=== PATIENT | male | born 1960 | race Caucasian/White ===

== ENCOUNTER 2024-11-20 10:01 | Emergency (ER) | payer MEDICAID, SELFPAY ==
--- NOTE | ~2024-11-20 | XR_ITS ---
EXAMINATION: XR CHEST CLINICAL INFORMATION: CHEST PAIN COMPARISON: None available. TECHNIQUE: 2 views of the chest were obtained. FINDINGS: There is moderate cardiac enlargement. Mediastinal contours are normal. Aortic mural calcification. Vascular congestion in the hilar regions. Lungs demonstrate mild interstitial pulmonary edema with subtle Kemar B lines in the lung bases and haziness of the interstitium. There is no pneumothorax or pleural effusion. 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 Mild degenerative spinal changes. XR/XR chest 2V IMPRESSION: 1. Cardiomegaly with mild interstitial pulmonary edema. No effusions. Electronically signed by: Alexx Curry MD 11/20/2024 01:14 PM EST
--- NOTE | 2024-11-20 10:03 | ECG_ITS ---
Test Reason : chest pain Blood Pressure : */* mmHG Vent. Rate : 65 BPM Atrial Rate : * BPM P-R Int : * ms QRS Dur : 80 ms QT Int : 416 ms P-R-T Axes : * -3 39 degrees QTcB Int : 432 ms Atrial fibrillation Low voltage QRS Cannot rule out Anteroseptal infarct , age undetermined Abnormal ECG No previous ECGs available Referred By: Generic ED Physician Electronically Signed By: JEFFREY LOMELI
[2024-11-20 10:19] VITALS: BP 156/58; PULSE 67; RESP 18; TEMP 36.6; O2SAT 99; BMI 29.5
[2024-11-20 10:38] LABS: MANUAL DIFF FLAG NO
[2024-11-20 10:40] LABS: Basophils Percent Auto 0.4 % (0-2); Eosinophils Absolute Auto 0.5 X10*3/uL (0.0-0.4); Eosinophils Percent Auto 6.9 % (0-4); Hemoglobin 14.2 g/dl (14.0-18.0); Imm Gran Abs Auto 0.02 X10*3/uL (0.00-0.03); Imm Gran Pct Auto 0.3 % (0.0-0.4); Lymphocytes Absolute Auto 2.2 X10*3/uL (1.2-4.9); Mean Corpuscular HGB Conc 33.8 g/dl (31.0-36.0); Mean Corpuscular Hemoglobin 29.6 pg (27.0-33.0); Mean Corpuscular Volume 87.7 fL (80.0-98.0); Mean Platelet Volume 12.2 fL (9.4-12.4); Monocytes Absolute Auto 0.6 X10*3/uL (0.1-1.2); Monocytes Percent Auto 8.5 % (2-11); Neutrophils Absolute Auto 3.8 x10*3/uL (2.0-8.3); Neutrophils Percent Auto 52.9 % (45-73); Platelet Count 137 X10*3/uL (160-400); Red Blood Count 4.79 X10*6/uL (4.60-5.80); Red Cell Distribution Width 14.1 % (11.0-16.0); White Blood Count 7.2 X10*3/uL (4.8-10.8)
[2024-11-20 10:55] LABS: Alanine Aminotransferase 46 U/L (0-40); Albumin Level 4.1 g/dL (3.5-5.0); Alkaline Phosphatase 231 U/L (39-117); Anion Gap 13 (12-20); Aspartate Amino Transferase 33 U/L (5-37); Bilirubin Total 0.9 mg/dL (0.0-1.0); Blood Urea Nitrogen 17 mg/dL (9-16); Calcium 10.1 mg/dL (8.4-10.2); Carbon Dioxide 29 mmol/L (22-29); Chloride 102 mmol/L (96-108); Creatinine Clr Calc Pharmacy 78.3; Estimated Glomerular Filt Rate > 60; Glucose Random 176 mg/dL (60-115); Potassium 3.8 mmol/L (3.3-5.1); Sodium 140 mmol/L (135-145); Total Protein 9.8 g/dL (6.5-8.0)
[2024-11-20 11:06] LABS: Troponin-I High Sensitivity < 2.7 ng/L (<3.5-35.0)
[2024-11-20 14:10] LABS: B Type Natriuretic Peptide 133 pg/mL (<100)
[2024-11-20 15:25] VITALS: BP 132/62; PULSE 61; RESP 18; TEMP 36.4; O2SAT 100
[2024-11-20 17:17] LABS: Troponin-I High Sensitivity < 2.7 ng/L (<3.5-35.0)
--- NOTE | 2024-11-20 17:24 | ED_ITS ---
HPI - Chest Pain General Chief Complaint: Chest Pain Stated Complaint: Chest Pain, Lost Vision Time Seen by Provider: 11/20/24 16:22 Source: patient and family Mode of arrival: ambulatory Limitations: no limitations History of Present Illness ED Provider: Dr. Kindra Diaz HPI narrative: Patient comes to the emergency room complaining of couple of 2 to 3 months of chest pain. Patient had recently gotten echocardiogram done in [place]. Patient was diagnosed with CHF. Patient seems to have AFib for several years. 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 Patient does not know much about his medical history, pink came to live now to the [facility] and is staying with a family member. At this time, patient states that he has the same chest discomfort that is been constant and unchanged for 3 months. Patient brought medications from [place] but is running out of. Patient does not have a PCP, does not have a telecommunications field technician or oxyacetylene torch operator. Patient denies shortness of breath. Related Data Previous Rx's ?Medication ?Instructions ?Recorded apixaban 5 mg tablet (Eliquis) 5 mg PO BID #60 tabs 11/20/24 atorvastatin 40 mg tablet 40 mg PO BEDTIME #30 tabs 11/20/24 ferrous sulfate 325 mg (65 mg 325 mg PO BID #60 tabs 11/20/24 iron) tablet folic acid 1 mg tablet 1 mg PO DAILY #30 tabs 11/20/24 hydrochlorothiazide 25 mg tablet 25 mg PO DAILY #30 tabs 11/20/24 metoprolol succinate 25 mg 25 mg PO DAILY #30 tabs 11/20/24 tablet,extended release 24 hr Allergies Allergy/AdvReac Type Severity Reaction Status Date / Time No Known Allergies Allergy Verified 11/20/24 10:23 Review of Systems 2 Review of Systems: Constitutional : No Weight loss, No Fever, No Chills, No Night Sweats, No Fatigue, No Malaise ENT/Mouth : No Hearing loss, No Ear Pain, No Nasal Congestion, No Sinus Pain, No Hoarseness, No sore throat, No Rhinorrhea, No Swallowing Difficulty Eyes: No Eye Pain, No Swelling, No Redness, No Foreign Body, No Discharge, No Vision Changes Cardiovascular : Complaining of chronic and unchanged chest pain for 3 months, No SOB, No Dyspnea on Exertion, denies orthopnea, denies palpitations Respiratory : No Cough, No Sputum, No Wheezing, No Smoke Exposure, No Dyspnea Gastrointestinal : No Nausea, No Vomiting, No Diarrhea, No Constipation, No abdominal Pain, No Hematochezia, No Melena Genitourinary : no irregular bleeding, No Dysuria, No Urinary Frequency, No Hematuria, No Urinary Incontinence, No Urgency, No Flank Pain, No Urinary Flow Changes, No Hesitancy Musculoskeletal : No joint pain, No Myalgias, No Joint Swelling Skin : No Skin Lesions, No rash Neuro : No Weakness, No Numbness, No Paresthesias, No Loss of Consciousness, No Dizziness, No Headache Psych : No Anxiety/Panic, No Depression, No SI/HI/AH/VH, No Social Issues, Heme/Lymph: No Bruising, No Bleeding,No Lymphadenopathy Endocrine : No Polyuria, No Polydipsia, No Temperature Intolerance [facility] Past Medical History Medical History (Updated 11/20/24 @ 17:56 by Kindra Diaz MD) Coronary artery disease Atrial fibrillation CHF (congestive heart failure) Social History Social History Alcohol intake: former Smoked in Last 30 Days: No Use of substances other than those prescribed or required for medical reasons: No Advance Directives: No Advance Directives Information Provided: No Physical Exam 2 Vital Signs: Vital Signs: Last Vital Signs Temp 97.5 F 11/20/24 15:25 Pulse 61 11/20/24 15:25 Resp 18 11/20/24 15:25 BP 132/62 11/20/24 15:25 Pulse Ox 100 11/20/24 15:25 O2 Del Method Room Air 11/20/24 15:25 BMI result Body Mass Index 29.5 Const: Other: Appearance: Alert. Oriented X3. No acute distress. Eyes: Pupils equal, round and reactive to light. ENT: Pharynx normal. Neck: Normal inspection. Neck supple. No lymph nodes noted. No crepitus CVS: Normal heart rate and rhythm. Pulses normal. Normal S1 and S2 Respiratory: No respiratory distress. Breath sounds normal. No Wheezing. No rales Abdomen: Soft and nontender. No rigidity. No distention. Skin: Skin warm and dry. Normal skin color. Normal skin turgor. Extremities: No lower extremity edema. No Lacerations. No Rash Neuro: Oriented X 3. No motor deficit. No sensory deficit. Moving all extremities. No slurred speech. CN 2 through 12 grossly intact Psych: calm, cooperative, normal affect My interpretation of EKG: Atrial fibrillation, rate control, heart rate 65, no ST segment depression or elevation, no T-wave inversion, QTC 432 My interpretation of labs: No significant abnormality in patient's chemistry, BNP slightly elevated 133, troponin x2 negative. At this time, patient is hemodynamically stable, no CHF exacerbation, AFib rate control. Patient will be given information about acquiring a new PCP, also we will provide the family with the phone number for Cardiology an ophthalmology. I will provide refills with the patient's medication from [place] Patient Is stable to be discharged. Medical Decision Making Medical Decision Making MDM Narrative: Patient brought letter from his telecommunications field technician with updated list of medications. Patient is running out of meds, I will refill them until he is seen by his new telecommunications field technician Lab Data [facility] Lab Attestation statement: I reviewed the patient's lab results. 11/20/24 10:33 11/20/24 10:33 Labs: Lab Results 11/20/24 11/20/24 Range/Units 10:33 16:51 WBC 7.2 (4.8-10.8) X10*3/uL RBC 4.79 (4.60-5.80) X10*6/uL Hgb 14.2 (14.0-18.0) g/dl Hct 42.0 (42.0-52.0) % MCV 87.7 (80.0-98.0) fL MCH 29.6 (27.0-33.0) pg MCHC 33.8 (31.0-36.0) g/dl RDW 14.1 (11.0-16.0) % Plt Count 137 L (160-400) X10*3/uL MPV 12.2 (9.4-12.4) fL Immature Gran % (Auto) 0.3 (0.0-0.4) % Neut % (Auto) 52.9 (45-73) % Lymph % (Auto) 31.0 (20-40) % [place] % (Auto) 8.5 (2-11) % Eos % (Auto) 6.9 H (0-4) % Baso % (Auto) 0.4 (0-2) % Lymph # (Auto) 2.2 (1.2-4.9) X10*3/uL [place] # (Auto) 0.6 (0.1-1.2) X10*3/uL Eos # (Auto) 0.5 H (0.0-0.4) X10*3/uL Baso # (Auto) 0.0 (0.0-0.2) X10*3/uL Abs Immat Gran (auto) 0.02 (0.00-0.03) X10*3/uL Absolute Neuts (auto) 3.8 (2.0-8.3) x10*3/uL Absolute Nucleated RBC 0.000 (0.0-0.012) X10*3/uL Nucleated RBC % (auto) 0.0 (0.0-0.2) /100WBC Sodium 140 (135-145) mmol/L Potassium 3.8 (3.3-5.1) mmol/L Chloride 102 (96-108) mmol/L Carbon Dioxide 29 (22-29) mmol/L Anion Gap 13 (12-20) BUN 17 H (9-16) mg/dL Creatinine 0.95 (0.5-1.4) mg/dL Estim Creat Clear Calc 78.3 Estimated GFR > 60 Random Glucose 176 H (60-115) mg/dL Calcium 10.1 (8.4-10.2) mg/dL Total Bilirubin 0.9 (0.0-1.0) mg/dL AST 33 (5-37) U/L ALT 46 H (0-40) U/L Alkaline Phosphatase 231 H (39-117) U/L Troponin I High Sens < 2.7 < 2.7 (<3.5-35.0) ng/L B-Natriuretic Peptide 133 H (<100) pg/mL Total Protein 9.8 H (6.5-8.0) g/dL Albumin 4.1 (3.5-5.0) g/dL Independent Interpretation I performed an independent interpretation of an: EKG and Plain X-Ray Radiology Impression Discussion of test interpretation with radiology: I have reviewed the radiologist's reading. Radiologist Impression: There is moderate cardiac enlargement. Mediastinal contours are normal. Aortic mural calcification. Vascular congestion in the hilar regions. Lungs demonstrate mild interstitial pulmonary edema with subtle Kemar B lines in the lung bases and haziness of the interstitium. There is no pneumothorax or pleural effusion. 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 Mild degenerative spinal changes. XR/XR chest 2V IMPRESSION: 1. Cardiomegaly with mild interstitial pulmonary edema. No effusions. Independent Historian Clinical information obtained from an independent historian. History obtained from or confirmed by: Other (Patient's niece) Critical Care Time Critical Care Time Critical Care Time: Yes Total Critical Care Time: 35 Attestation: I have personally provided critical care time. Time includes review of lab data, radiology results, discussion with consultants, and monitoring for potential decompensation. Intervention performed as documented. Discharge Plan Discharge Clinical Impression: Chronic CHF, Chronic atrial fibrillation, Chronic chest pain, Cataract Patient Disposition: Home, Self-Care Instructions: Heart Failure (ED), A-fib (Atrial Fibrillation) (ED), Chest Pain (ED), Cataracts (ED) Additional Instructions: Please follow-up with your primary care physician tomorrow. If you have any worsening or new symptoms, please return to the emergency room or call 911 Prescriptions: New Eliquis 5 mg tablet 5 mg PO BID Qty: 60 2RF atorvastatin 40 mg tablet 40 mg PO BEDTIME Qty: 30 2RF metoprolol succinate 25 mg tablet extended release 24 hr 25 mg PO DAILY Qty: 30 2RF hydrochlorothiazide 25 mg tablet 25 mg PO DAILY Qty: 30 2RF ferrous sulfate 325 mg (65 mg iron) tablet 325 mg PO BID Qty: 60 2RF folic acid 1 mg tablet 1 mg PO DAILY Qty: 30 2RF Referrals: Regulo Sandy MD [Physician] - 11/26/24 Suresh Goodwin [Physician] - 11/26/24 Print Language: Korean
== END 2024-11-20 19:03 | disposition home or self-care (01) ==
PROVIDERS: Physician Assistant Medical; Emergency Provider Emergency Medicine
DX: I50.9 Heart failure, unspecified (principal); I48.91 Unspecified atrial fibrillation; R07.9 Chest pain, unspecified; H26.9 Unspecified cataract; I51.7 Cardiomegaly; Z79.01 Long term (current) use of anticoagulants
CPT/HCPCS: 36415; 71046; 80053; 83880; 84484; 85025; 93005; 99283; 99284

== ENCOUNTER → 2024-11-20 10:03 | Outpatient (BNV) | payer MEDICAID, SELFPAY | PROVIDERS: Emergency Provider Emergency Medicine; Visit Provider Internal Medicine | DX: R07.9 Chest pain, unspecified (principal); I48.91 Unspecified atrial fibrillation; R94.31 Abnormal electrocardiogram [ECG] [EKG] | CPT/HCPCS: 93010 ==

== ENCOUNTER → 2024-11-20 10:53 | Outpatient (BNV) | payer MEDICAID, SELFPAY | PROVIDERS: Visit Provider Radiology Diagnostic Radiology | DX: I51.7 Cardiomegaly (principal) | CPT/HCPCS: 71046 ==

== ENCOUNTER 2025-01-31 14:19 | Outpatient (REF) | payer MEDICAID, SELFPAY ==
[2025-01-31 16:04] LABS: MANUAL DIFF FLAG NO
[2025-01-31 16:18] LABS: Basophils Percent Auto 0.5 % (0-2); Eosinophils Absolute Auto 0.3 X10*3/uL (0.0-0.4); Eosinophils Percent Auto 3.9 % (0-4); Hematocrit 32.8 % (42.0-52.0); Hemoglobin 11.1 g/dl (14.0-18.0); Imm Gran Abs Auto 0.02 X10*3/uL (0.00-0.03); Imm Gran Pct Auto 0.2 % (0.0-0.4); Lymphocytes Absolute Auto 3.1 X10*3/uL (1.2-4.9); Lymphocytes Percent Auto 34.9 % (20-40); Mean Corpuscular HGB Conc 33.8 g/dl (31.0-36.0); Mean Corpuscular Hemoglobin 28.8 pg (27.0-33.0); Mean Platelet Volume 12.9 fL (9.4-12.4); Monocytes Absolute Auto 0.9 X10*3/uL (0.1-1.2); Monocytes Percent Auto 10.4 % (2-11); Neutrophils Absolute Auto 4.4 x10*3/uL (2.0-8.3); Neutrophils Percent Auto 50.1 % (45-73); Platelet Count 191 X10*3/uL (160-400); Red Blood Count 3.86 X10*6/uL (4.60-5.80); Red Cell Distribution Width 13.5 % (11.0-16.0); White Blood Count 8.7 X10*3/uL (4.8-10.8)
[2025-01-31 16:27] LABS: Estimated Average Glucose 203 mg/dL; Hemoglobin A1C 207.0246 umol/L; Hemoglobin A1c % 8.7 % (<6.0); Total Hemoglobin (HGBA1C) 2912.6373 umol/L
--- OUTSIDE RECORDS SUMMARY | 2025-01-31 16:27 | XMS_ITS | Encounter Summary ---
Author Organization [employer] Address [address] [place] [address] Care Team Providers Care Multifocal Lens Inspector Name Role Phone Unavailable Primary Care Provider Unavailabl e Encounter Details Date Type Department Care Team (Latest Contact Info) Description 01/31/2025 Travel Social History Tobacco Use Types Packs/Day Years Used Date Smoking Tobacco: Never Sex and Gender Information Value Date Recorded Sex Assigned at Male 01/31/2025 1:00 PM EDT Legal Sex Male 12:09 PM EST Gender Identity Male 01/31/2025 1:00 PM EDT Sexual Orientation Straight 01/31/2025 1: 00 PM EDT documented as of this encounter Plan of Treatment Upcoming Encounters Date Type Department Care Team (Late st Contact Info) Description 02/06/2025 3:30 PM EDT Clinical Support [facility] [address] [place] [id number] 03/07/2025 10:30 AM EDT Office Visit [facility] [address] [place] [phone] Francisco Khoury MD [address] [place] [address] documented as of this encounter Visit Diagnoses Not on filedocumented in this encounter
--- OUTSIDE RECORDS SUMMARY | 2025-01-31 16:27 | XMS_ITS | Encounter Summary ---
Author Organization [employer] Address [address] [place] [address] Care Team Providers Care Biomedical Equipment Specialist Name Role Phone Unavailable Primary Care Provider Unavailabl e Reason for Visit * Reason Comments Mediaction Request Abdominal Pain Encounter Details Date Type Department Care Team (Late Contact Info) Description 01/31/2025 2:20 PM EDT Office Visit [facility] [address] [place] [address] [phone] Atrial fibrillation, chronic (CMS/HCC) (Primary Dx); Essential hypertension Social History Tobacco Use Types Packs/Day Years Used Date Smoking Tobacco: Never Tobacco Cessation:Counseling Given: Not Answered Sex and Gender Information Value Date Recorded Sex Assigned at Male 01/31/2025 1:00 PM EDT Legal Sex Male 12:09 PM EST Gender Identity Male 01/31/2025 1:00 PM EDT Sexual Orientation Straight 01/31/2025 1: 00 PM EDT documented as of this encounter Last Filed Vital Signs Vital Sign Reading Time Taken Comments Blood Pressure 149/82 01/31/2025 1:32 PM EDT Pulse 90 01/31/2025 1:32 PM EDT Temperature 36.8 ??C (98.2 ??F) 01/31/2025 1:32 PM ED T Respiratory Rate 17 01/31/2025 1:32 PM EDT Oxygen Saturation 97% 01/31/2025 1:32 PM EDT Inhaled Oxygen Concentration - - Weight 88.4 kg (194 lb 12.8 oz) 01/31/2025 1:32 PM EDT Height - - Body Mass Index - - documented in this encounter Plan of Treatment Upcoming Encounters Date Type Department Care Team (Late Contact Info) Description 02/06/2025 3:30 PM EDT Clinical Support [facility] [address] [place] [phone] 03/07/2025 10:30 AM EDT Office Visit [facility] [address] [facility] [place] [phone] Francisco Khoury MD [address] [facility] [place] [address] Scheduled Orders Name Type Priority Associated Diagnoses Orde r Schedule T4, Free Lab Routine Atrial fibrillation, chronic (CMS/HCC) Essential hypertension Expected: 01/31/2025 (Approximate), Expires: 01/31/2026 Vitamin D, 25-Hydroxy, Total, Immunoassay Lab Routine Atrial fibrillation, chronic (CMS/HCC) Essential hypertension Expected: 01/31/2025 (Approximate), Expires: 01/31/2026 Lipid Panel, Standard Lab Routine Atrial fibrillation, chronic (CMS/HCC) Essential hypertension Expected: 01/31/2025 (Approximate), Expires: 01/31/2026 TSH Lab Routine Atrial fibrillation, chronic (CMS/HCC) Essential hypertension Expected: 01/31/2025 (Approximate), Expires: 01/31/2026 Hepatic Function Panel Lab Routine Atrial fibrillation, chronic (CMS/HCC) Essential hypertension Expected: 01/31/2025 (Approximate), Expires: 01/31/2026 Hemoglobin A1c Lab Routine Atrial fibrillation, chronic (CMS/HCC) Essential hypertension Expected: 01/31/2025 (Approximate), Expires: 01/31/2026 Basic Metabolic Panel Lab Routine Atrial fibrillation, chronic (CMS/HCC) Essential hypertension Expected: 01/31/2025 (Approximate), Expires: 01/31/2026 Albumin, Random Urine W/Creatinine Lab Routine Atrial fibrillation, chronic (CMS/HCC) Essential hypertension Expected: 01/31/2025 (Approximate), Expires: 01/31/2026 Hepatitis B surface antigen, EIA Lab Routine Atrial fibrillation, chronic (CMS/HCC) Essential hypertension Expected: 01/31/2025 (Approximate), Expires: 01/31/2026 Chlamydia/N. Gonorrhoeae RNA, TMA, Urogenitial Microbiology Routine Atrial fibrillation, chronic (CMS/HCC) Essential hypertension Ordered: 01/31/2025 HIV-1/2 Antigen and Antibodies, Fourth Generation, with Reflexes Lab Routine Atrial fibrillation, chronic (CMS/HCC) Essential hypertension Expected: 01/31/2025 (Approximate), Expires: 01/31/2026 Hepatitis C Antibody with Reflex to HCV, RNA, Quantitative, Real-Time PCR Lab Routine Atrial fibrillation, chronic (CMS/HCC) Essential hypertension Expected: 01/31/2025, Expires: 01/31/2026 RPR (Monitor) with Reflex to??Titer Lab Routine Atrial fibrillation, chronic (CMS/HCC) Essential hypertension Expected: 01/31/2025, Expires: 01/31/2026 Hepatitis B Surface Antibody, Qualitative Lab Routine Atrial fibrillation, chronic (CMS/HCC) Essential hypertension Expected: 01/31/2025 (Approximate), Expires: 01/31/2026 Hepatitis A Antibody, Total Lab Routine Atrial fibrillation, chronic (CMS/HCC) Essential hypertension Expected: 01/31/2025 (Approximate), Expires: 01/31/2026 Hepatitis B Core Antibody, Total Lab Routine Atrial fibrillation, chronic (CMS/HCC) Essential hypertension Expected: 01/31/2025 (Approximate), Expires: 01/31/2026 Vitamin B12 (Cobalamin) and Folate Panel, Serum Lab Routine Atrial fibrillation, chronic (CMS/HCC) Essential hypertension Expected: 01/31/2025, Expires: 01/31/2026 Ferritin Lab Routine Atrial fibrillation, chronic (CMS/HCC) Essential hypertension Expected: 01/31/2025, Expires: 01/31/2026 Iron And Total Iron Binding Capacity Lab Routine Atrial fibrillation, chronic (CMS/HCC) Essential hypertension Expected: 01/31/2025, Expires: 01/31/2026 CBC auto differential Lab Routine Atrial fibrillation, chronic (CMS/HCC) Essential hypertension Expected: 01/31/2025 (Approximate), Expires: 01/31/2026 documented as of this encounter Procedures Procedure Name Priority Date/Time Associated Diagnosis Comments POCT GLYCATED HEMOGLOBIN, TOTAL Routine 01/31/2025 2:01 PM EDT Atrial fibrillation, chronic (CMS/HCC) POCT GLUCOSE Routine 01/31/2025 2:01 PM EDT Atrial fibrillation, chronic (CMS/HCC) documented in this encounter Results * (ABNORMAL) POCT A1C (01/31/2025 2:01 PM EDT) Hemoglobin A1C 8.8(A) 4.0 - 6.0 % Blood 01/31/2025 2:01 PM EDT Roula Alejandre DO POINT OF CARE TEST ENTER/ELY T ORDERABLES Final Result * (ABNORMAL) POCT glucose manually resulted (01/31/2025 2:01 PM EDT) Glucose Blood, POC 239(A) 60 - 200 mg/dL Blood Capillary blood specimen / Unknown 01/31/2025 2:01 PM EDT Roula Alejandre DO POINT OF CARE TEST ENTER/ELY T ORDERABLES Final Result documented in this encounter Visit Diagnoses Diagnosis Atrial fibrillation, chronic (CMS/HCC)- Primary Essential hypertension Unspecified essential hypertension documented in this encounter
--- OUTSIDE RECORDS SUMMARY | 2025-01-31 16:27 | XMS_ITS | Clinical Summary ---
Author Organization [employer] Address [address] [place] [address] Care Team Providers Care Paint Spraying Machine Operator Helper Name Role Phone Unavailable Primary Care Provider Unavailabl e Allergies No known active allergies Medications FREESTYLE LITE test strip Use to test blood sugar 2 times daily 100 each 11 01/31/2025 6 Active Lancets misc Use to test blood sugar 2 times daily 100 each 11 01/31/2025 Active Alcohol Swabs 70 % pads Use to test blood sugar 2 times daily 100 each 01/31/2025 Active Blood Pressure kit 1 each 1 (one) time per week. 1 kit 01/31/2025 Active empagliflozin (Jardiance) 10 MG Take 1 tablet (10 mg) by mouth Once per day. 30 tablet 3 01/31/2025 6 Active atorvastatin (Lipitor) 40 MG tablet Take 1 tablet (40 mg) by mouth Once per day. 30 tablet 3 01/31/2025 6 Active hydroCHLOROthiaz jf (HYDRODiuril) 25 MG tablet Take 1 tablet (25 mg) by mouth Once per day. 30 tablet 3 01/31/2025 6 Active apixaban (Eliquis) 5 MG tablet Take 1 tablet (5 mg) by mouth 2 times daily. 60 tablet 3 01/31/2025 Active omeprazole OTC (PriLOSEC OTC) 20 MG EC tablet Take 1 tablet (20 mg) by mouth before breakfast. Do not crush, chew, or split. 30 tablet 3 01/31/2025 6 Active simethicone (Mylicon) 125 MG chewable tablet Chew 1 tablet (125 mg) every 6 (six) hours if needed for flatulence. 30 tablet 1 01/31/2025 Active ferrous sulfate (Fe Tabs) 325 (65 Fe) MG EC tablet Take 1 tablet (325 mg) by mouth with breakfast. Do not crush, chew, or split. 30 tablet 3 01/31/2025 Active Ascorbic Acid (vitamin C) 250 MG tablet Take 1 tablet (250 mg) by mouth Once per day. 30 tablet 3 01/31/2025 Active folic acid (Folvite) 1 MG tablet Take 1 tablet (1 mg) by mouth Once per day. 30 tablet 3 01/31/2025 Active metoprolol succinate XL (Toprol XL) 50 MG 24 hr tablet Take 1 tablet (50 mg) by mouth Once per day. Do not crush or chew. 30 tablet 3 01/31/2025 Active Active Problems Problem Noted Date Diagnosed Date Atrial fibrillation, chronic 01/31/2025 Congestive heart failure 01/31/2025 Essential hypertension 01/31/2025 Resolved Problems Problem Noted Date Diagnosed Date Resolved Date Coronary artery disease 01/31/2025 05/0 10/2024 Encounters Date Type Department Care Team Description 01/31/2025 2:20 PM EDT Office Visit [facility] [address] [place] [phone] Atrial fibrillation, chronic (CMS/HCC) (Primary Dx); Essential hypertension 01/31/2025 Travel 12/07/2024 Telephone [facility] [address] [place] [phone] Francisco Khoury MD Appointment Request from Last 3 Months Social History Tobacco Use Types Packs/Day Years Used Date Smoking Tobacco: Never Tobacco Cessation:Counseling Given: Not Answered Sex and Gender Information Value Date Recorded Sex Assigned at Male 01/31/2025 1:00 PM EDT Legal Sex Male 12:09 PM EST Gender Identity Male 01/31/2025 1:00 PM EDT Sexual Orientation Straight 01/31/2025 1: 00 PM EDT Last Filed Vital Signs Vital Sign Reading [...] - - Body Mass Index - - Plan of Treatment Upcoming Encounters Date Type Department Care Team (Late st Contact Info) Description 02/06/2025 3:30 PM EDT Clinical Support [facility] [address] [place] [phone] 03/07/2025 10:30 AM EDT Office Visit [facility] [address] [place] [phone] Francisco Khoury MD [address] [place] [address] Health Maintenance Due Date Last Done Comments CT Colonography 1959 Colonoscopy 1959 Colorectal Cancer Screening 1959 Depression Screening 1959 FIT DNA/Cologuard 1959 FIT 1959 FOBT 1959 Lipid Panel 1959 SDOH Screening 1959 Sigmoidoscopy 1959 Alcohol/Substance Use Screening 1971 Tobacco Screening 1971 Hepatitis C Screening 1977 DTaP/Tdap/Td Vaccines (1 - Tdap) 1978 Pneumococcal Vaccine: 50+ Ye ars (1 of 2 - PCV) 1978 Zoster Vaccines (1 of 2) 2009 RSV Patients and Pa tients Aged 60 years or older (1 - Risk 60-74 years 1-dose series) 2019 COVID-19 Vaccine ( - 2023-2 5 season) 2024 Influenza Vaccine (#1) 2024 HIB Vaccines Aged Out No longer eligi ble based on patient's age to complete this topic HPV Vaccines Aged Out No longer eligi ble based on patient's age to complete this topic Hepatitis A Vaccines Aged Out No long er eligible based on patient's age to complete this topic Hepatitis B Vaccines Aged Out No long er eligible based on patient's age to complete this topic IPV Vaccines Aged Out No longer eligi ble based on patient's age to complete this topic Meningococcal Vaccine Aged Out No juan dany eligible based on patient's age to complete this topic RSV under 20 months Aged Out No longe r eligible based on patient's age to complete this topic Rotavirus Vaccines Aged Out No longer eligible based on patient's age to complete this topic Procedures Procedure Name Priority Date/Time Associated Diagnosis Comments POCT GLYCATED HEMOGLOBIN, TOTAL Routine 01/31/2025 2:01 PM EDT Atrial fibrillation, chronic (CMS/HCC) POCT GLUCOSE Routine 01/31/2025 2:01 PM EDT Atrial fibrillation, chronic (CMS/HCC) from Last 3 Months Results * (ABNORMAL) POCT A1C (01/31/2025 2:01 [...] CARE TEST ENTER/ELY T ORDERABLES Final Result from Last 3 Months Insurance [facility] STAND[facility]
[2025-01-31 16:34] LABS: Alanine Aminotransferase 36 U/L (0-40); Albumin Level 4.1 g/dL (3.5-5.0); Alkaline Phosphatase 216 U/L (39-117); Anion Gap 14 (12-20); Aspartate Amino Transferase 32 U/L (5-37); Bilirubin Direct 0.2 mg/dL (0.0-0.5); Bilirubin Total 0.5 mg/dL (0.0-1.0); Blood Urea Nitrogen 17 mg/dL (9-16); Calcium 9.9 mg/dL (8.4-10.2); Carbon Dioxide 26 mmol/L (22-29); Chloride 101 mmol/L (96-108); Cholesterol 154 mg/dL (<200); Estimated Glomerular Filt Rate > 60; Glucose Random 214 mg/dL (60-115); HDL Cholesterol 40 mg/dL (>40); Iron 109 mcg/dL (45-160); LDL Cholesterol Calculated 81 mg/dL (<100); Percent Iron Saturation 40 % (15-50); Potassium 3.8 mmol/L (3.3-5.1); Sodium 137 mmol/L (135-145); Total Iron Binding Capacity 270 mcg/dL (228-428); Total Protein 8.8 g/dL (6.5-8.0); Triglycerides 167 mg/dL (<150); Unsaturated Iron Binding 161 ug/dL
[2025-01-31 16:52] LABS: Creatinine Urine 58.38 mg/dL; Microalbumin Urine < 5.0 mg/L
[2025-01-31 16:55] LABS: Ferritin 109 ng/mL (20-250); Thyroid Stimulating Hormone 1.03 uIU/mL (0.32-4.0); Vitamin D 25-OH Total 21.9 ng/mL (>30)
[2025-01-31 17:01] LABS: Folate 17.1 ng/mL (> or = 4.0); Vitamin B12 376 pg/mL (200-900)
[2025-01-31 18:29] LABS: CT PCR NOT DETECTED (Not Detect.); NG PCR NOT DETECTED (Not Detect.)
[2025-02-01 08:18] LABS: HBS Num1 0.96 mIU/mL (0-7.99); HBc Num1 0.38 S/CO (0.00-0.79); HBsAGNum1 0.41 S/CO (0.00-0.99); HIV AB/AG Nonreactive (Nonreactive); HIV Num 1 0.13 S/CO (0.00-0.99); Hepatitis B Core Antibody Nonreactive (Nonreactive); Hepatitis B Surface Antigen Negative (Negative); ~HepC Num1 0.09 S/CO (0.00-0.79); ~Hepatitis B Surface Antibody NONREACTIVE (Nonreactive); ~Hepatitis C Antibody Nonreactive (Nonreactive)
[2025-02-01 14:08] LABS: RPR Rapid Plasma Reagin NON-REACTIVE (NON-REACTIVE)
[2025-02-07 03:55] LABS: Hepatitis A Antibody IgG REACTIVE (Nonreactive); ~Hepatitis A Antibody IgG 10.43 S/CO (0.00-0.99)
== END 2025-01-31 14:20 | disposition home or self-care (01) ==
LOC: HO.HHCL 14:19
PROVIDERS: Visit Provider Family Medicine
DX: I48.20 Chronic atrial fibrillation, unspecified (principal); I10 Essential (primary) hypertension
CPT/HCPCS: 80048; 80061; 80076; 82306; 82570; 82607; 82728; 82746; 83036; 83540; 84439; 84443; 85025; 86592; 86704; 86706; 86708; 86803; 87340; 87389; 87491; 87591

== ENCOUNTER 2025-02-12 15:44 | Outpatient (REF) | payer MEDICAID, SELFPAY ==
--- NOTE | ~2025-02-12 | MR_ITS ---
EXAMINATION: MR BRAIN WITHOUT AND WITH CONTRAST CLINICAL INFORMATION: Acute bilateral vision loss July 2024. 64-year-old male. No trauma or accident. COMPARISON: No prior brain imaging. TECHNIQUE: Multiplanar, multisequence MRI of the brain was obtained before and after the intravenous administration of 8.5 mL Gadavist. Examination performed on a 1.5 Jeimy high-field Siemens unit. FINDINGS: There is no diffusion restriction. There is no intracranial hemorrhage, acute infarction, mass effect, or edema. Ventricles, sulci, and cisterns are normal in size and configuration for patient age. Cavum septum pellucidum. No shift of midline. No abnormal hemosiderin deposition is identified. There are scattered punctate and minimally confluent foci of white matter T2 hyperintensity in the periventricular, subcortical, and hemispheric deep white matter. These foci are nonspecific but statistically most likely relate to moderate small vessel ischemic changes. No morphology specific to inflammatory demyelination. Midline structures appear normally formed. The pituitary gland appears normal. The pineal gland appears normal. Posterior fossa structures demonstrate prominent cisterna magna, normal variant. Cerebellar tonsils are appropriately located. Major flow voids are preserved within the skull base. After the administration of contrast, there is no abnormal intra or extra-axial contrast enhancement. The globes and orbital contents demonstrate no abnormalities. Optic nerve sheath complexes appear normal. There is complete opacification of the left maxillary sinus with low intensity central secretions suggesting inspissated secretions versus fungal colonization. Moderate dependent mucosal thickening right maxillary sinus. Moderate mucosal thickening right sphenoid sinus. Mild to moderate scattered mucosal thickening throughout the ethmoid sinuses. Trace fluid in both mastoid tips. Tympanic cavities are aerated normally. Extracranial soft tissues demonstrate no abnormalities. No suspicious bone marrow changes are evident. Atlantoaxial joint is demonstrate mild to moderate degenerative changes. MR/MR head/brain wo/w con IMPRESSION: 1. No evidence of intracranial hemorrhage, acute infarction, mass effect, or edema. No abnormal intra or extra-axial contrast enhancement. 2. Moderate changes of small vessel ischemic disease. 3. Scattered moderate paranasal sinus disease, with complete opacification of the left maxillary sinus as described, likely chronic. Central low signal intensity suggests inspissated secretions and/or fungal colonization. 4. Additional ancillary findings as discussed. Electronically signed by: Alexx Curry MD 02/13/2025 08:19 AM EDT
--- OUTSIDE RECORDS SUMMARY | 2025-02-12 16:31 | XMS_ITS | Clinical Summary ---
Author Organization [employer] Address [address] [facility] [address] [place] [address] Care Team Providers Care Slot Service Specialist Name Role Phone Unavailable Primary Care Provider Unavailabl e Allergies No known active allergies Medications FREESTYLE LITE test strip Use to test blood sugar 2 times daily 100 each 11 5 02/01/20 26 Active Lancets misc Use to test blood sugar 2 times daily 100 each 11 5 Active Alcohol Swabs 70 % pads Use to test blood sugar 2 times daily 100 each 5 Active Blood Pressure kit 1 each 1 (one) time per week. 1 kit 5 Active empagliflozin (Jardiance) 10 MG Take 1 tablet (10 mg) by mouth Once per day. 30 tablet 3 5 02/01/20 26 Active atorvastatin (Lipitor) 40 MG tablet Take 1 tablet (40 mg) by mouth Once per day. 30 tablet 3 5 02/01/20 26 Active hydroCHLOROthia zide (HYDRODiuril) 25 MG tablet Take 1 tablet (25 mg) by mouth Once per day. 30 tablet 3 5 02/01/20 26 Active apixaban (Eliquis) 5 MG tablet Take 1 tablet (5 mg) by mouth 2 times daily. 60 tablet 3 5 Active omeprazole OTC (PriLOSEC OTC) 20 MG EC tablet Take 1 tablet (20 mg) by mouth before breakfast. Do not crush, chew, or split. 30 tablet 3 5 02/01/20 26 Active simethicone (Mylicon) 125 MG chewable tablet Chew 1 tablet (125 mg) every 6 (six) hours if needed for flatulence. 30 tablet 1 5 02/01/20 26 Active ferrous sulfate (Fe Tabs) 325 (65 Fe) MG EC tablet Take 1 tablet (325 mg) by mouth with breakfast. Do not crush, chew, or split. 30 tablet 3 5 02/01/20 26 Active Ascorbic Acid (vitamin C) 250 MG tablet Take 1 tablet (250 mg) by mouth Once per day. 30 tablet 3 5 02/01/20 26 Active folic acid (Folvite) 1 MG tablet Take 1 tablet (1 mg) by mouth Once per day. 30 tablet 3 5 02/01/20 26 Active metoprolol succinate XL (Toprol XL) 50 MG 24 hr tablet Take 1 tablet (50 mg) by mouth Once per day. Do not crush or chew. 30 tablet 3 5 02/01/20 26 Active cholecalciferol (Vitamin D-3) 50 MCG (2000 UT) capsule Take 1 capsule (50 mcg) by mouth Once per day. 90 capsule 3 5 02/02/20 26 Active carbamide peroxide (Debrox) 6.5 % otic solution Administer 5 drops into the right ear 2 times daily for 4 days. 15 mL 5 02/05/20 25 Active Problems Problem Noted Date Diagnosed Date Atrial fibrillation, chronic 01/31/2025 Congestive heart failure 01/31/2025 Essential hypertension 01/31/2025 Type 2 diabetes mellitus 01/31/2025 Cataracts, bilateral 01/31/2025 Anemia 01/31/2025 Hyperlipidemia 01/31/2025 Cardiomegaly 01/31/2025 History of alcohol use disorder 01/31/2025 Resolved Problems Problem Noted Date Diagnosed Date Resolved Date Coronary artery disease 01/31/2025 05/0 10/2024 Encounters Date Type Department Care Team Description 02/06/2025 3:30 PM EDT Clinical Support [facility] [address] [place] [address] Viri Das RN Impacted cerumen of right ear 02/06/2025 Travel 02/01/2025 Refill [facility] [address] [place] [address] Roula Alejandre DO 01/31/2025 2:20 PM EDT Office Visit [facility] [address] [place] [phone] Roula Alejandre DO Type 2 diabetes mellitus without complication, without long-term current use of insulin (CMS/HCC) (Primary Dx); Essential hypertension; Other hyperlipidemia; Atrial fibrillation, chronic (CMS/HCC); Cardiomegaly; Anemia, unspecified type; Acute loss of vision, bilateral; Abdominal bloating; Heartburn; Impacted cerumen of right ear 01/31/2025 Travel 12/07/2024 Telephone [facility] [address] [place] [phone] Francisco Khoury MD Appointment Request from Last 3 Months Family History Medical History Relation Name Comments Prostate cancer Brother Relation Name Status Comments Brother Social History Tobacco Use Types Packs/Day Years [...] Sign Reading Time Taken Comments Blood Pressure 140/62 01/31/2025 4:55 PM EDT Pulse 90 01/31/2025 1:32 PM [...] Care Team (Late st Contact Info) Description 03/07/2025 10:30 AM EDT Office Visit [facility] [address] [place] [phone] Francisco Khoury MD [address] [place] [phone] Health Maintenance Due Date Last Done Comments CT Colonography 1959 Colonoscopy 1959 Colorectal Cancer Screening 1959 Depression Screening 1959 FIT DNA/Cologuard 1959 FIT 1959 FOBT 1959 SDOH Screening 1959 Sigmoidoscopy 1959 Diabetes: Foot Exam 1969 Eye Exam 1969 Alcohol/Substance Use Screening 1971 DTaP/Tdap/Td Vaccines (1 - Tdap) 1978 Pneumococcal Vaccine: 50+ Years (1 of 2 - PCV) 1978 Zoster Vaccines (1 of 2) 2009 RSV Patients and Patients Aged 60 years or older (1 - Risk 60-74 years 1-dose series) 2019 COVID-19 Vaccine ( - 2023-2 5 season) 2024 Influenza Vaccine (#1) 2024 Diabetes: Hemoglobin A1C 05/03/2025 025, 01/31/2025 Diabetes: Urine Protein Screening 01/31/2026 01/31/2025 Lipid Panel 01/31/2026 01/31/2025 Tobacco Screening 01/31/2026 01/31/2025 Hepatitis C Screening Completed 01/31/2025 HIB Vaccines Aged Out No longer eligi [...] Procedure Name Priority Date/Time Associated Diagnosis Comments UT REMOVAL IMPACTED CERUMEN IRRIGATION/LVG UNILAT Routine 02/06/2025 3:29 PM EDT Impacted cerumen of right ear CBC WITH AUTO DIFFERENTIAL Routine 01/31/2025 2:22 PM EDT Atrial fibrillation, chronic (CMS/HCC) Essential hypertension IRON AND TOTAL IRON BINDING CAPACITY Routine 01/31/2025 2:22 PM EDT Atrial fibrillation, chronic (CMS/HCC) Essential hypertension FERRITIN Routine 01/31/2025 2:22 PM EDT Atrial fibrillation, chronic (CMS/HCC) Essential hypertension VITAMIN B12/FOLATE, SERUM PANEL Routine 01/31/2025 2:22 PM EDT Atrial fibrillation, chronic (CMS/HCC) Essential hypertension HEPATITIS B CORE AB TOTAL Routine 01/31/2025 2:22 PM EDT Atrial fibrillation, chronic (CMS/HCC) Essential hypertension HEPATITIS A ANTIBODY, TOTAL Routine 01/31/2025 2:22 PM EDT Atrial fibrillation, chronic (CMS/HCC) Essential hypertension HEPATITIS B SURFACE ANTIBODY, QUALITATIVE Routine 01/31/2025 2:22 PM EDT Atrial fibrillation, chronic (CMS/HCC) Essential hypertension RPR (MONITOR) W/REFL TITER Routine 01/31/2025 2:22 PM EDT Atrial fibrillation, chronic (CMS/HCC) Essential hypertension HEPATITIS C AB W/REFL TO HCV RNA, QN, PCR Routine 01/31/2025 2:22 PM EDT Atrial fibrillation, chronic (CMS/HCC) Essential hypertension HIV 1/2 ANTIGEN/ANTIBODY, FOURTH GENERATION W/RFL Routine 01/31/2025 2:22 PM EDT Atrial fibrillation, chronic (CMS/HCC) Essential hypertension HEPATITIS B SURFACE ANTIGEN, EIA Routine 01/31/2025 2:22 PM EDT Atrial fibrillation, chronic (CMS/HCC) Essential hypertension ALBUMIN, RANDOM URINE W/CREATININE Routine 01/31/2025 2:22 PM EDT Atrial fibrillation, chronic (CMS/HCC) Essential hypertension BASIC METABOLIC PANEL Routine 01/31/2025 2:22 PM EDT Atrial fibrillation, chronic (CMS/HCC) Essential hypertension HEMOGLOBIN A1C Routine 01/31/2025 2:22 PM EDT Atrial fibrillation, chronic (CMS/HCC) Essential hypertension HEPATIC FUNCTION PANEL Routine 01/31/2025 2:22 PM EDT Atrial fibrillation, chronic (CMS/HCC) Essential hypertension TSH Routine 01/31/2025 2:22 PM EDT Atrial fibrillation, chronic (CMS/HCC) Essential hypertension LIPID PANEL, STANDARD Routine 01/31/2025 2:22 PM EDT Atrial fibrillation, chronic (CMS/HCC) Essential hypertension VITAMIN D,25-OH,TOTAL,IA Routine 01/31/2025 2:22 PM EDT Atrial fibrillation, chronic (CMS/HCC) Essential hypertension T4, FREE Routine 01/31/2025 2:22 PM EDT Atrial fibrillation, chronic (CMS/HCC) Essential hypertension CHLAMYDIA/N. GONORRHOEAE RNA, TMA, UROGENITAL Routine 01/31/2025 2:22 PM EDT Atrial fibrillation, chronic (CMS/HCC) Essential hypertension POCT GLYCATED HEMOGLOBIN, TOTAL Routine 01/31/2025 2:01 PM EDT Atrial fibrillation, chronic (CMS/HCC) POCT GLUCOSE Routine 01/31/2025 2:01 PM EDT Atrial fibrillation, chronic (CMS/HCC) from Last 3 Months Results * UT REMOVAL IMPACTED CERUMEN IRRIGATION/LVG UNILAT (02/06/2025 3:29 PM EDT) Viri Garcia RN - 02/06/2025 3:29 PM EDT Viri Das RN ? 02/06/2025 ??3:36 PM Ear Cerumen Removal Date/Time: 02/06/2025 3:29 PM Performed by: Viri Das RN Authorized by: Anisa Parmar MD ?? Consent: ??Consent given by: ??Patient ??Risks, benefits, and alternatives were discussed: yes ?Risks discussed: ??Pain, dizziness and incomplete removal Procedure details: ??Location: ??R ear ??Procedure type: irrigation ?Procedure outcomes: cerumen removed ?? Post-procedure details: ??Inspection: ??Some cerumen remaining, no bleeding and TM intact ??Hearing quality: ??Improved ??Procedure completion: ??Tolerated well, no immediate complications us Anisa Parmar MD IN CLINIC/BEDSIDE ORDERABL ES Final Result * (ABNORMAL) Vitamin D, 25-Hydroxy, Total, Immunoassay (01/31/2025 2:22 PM EDT) [facility] Vitamin D 25-OH Total 21.9(L) >30 ng/mL [facility] Comment: Health Based Reference Values*< 20 ??ng/mL ??Pfjtdrthb58-62 ng/mL ??Insufficient> 30 ??ng/mL ??Sufficient*David DURHAM. N Engl J Med. 2007;357:266-280There is no well-established upper level of normal vitamin Dlevels. Some laboratories use 50 ng/mL as an upper limit ofnormal. However, toxicity is patient-dependent and may occurat any level. Careful correlation with the patient'spresentation is necessary and, if there is concern forvitamin D toxicity, treatment should be consideredirrespective of the serum level.Care must be taken in interpreting Vitamin D results fromdifferent laboratories and methodologies. ??Published datademonstrated that results from patients undergoinghemodialysis may show a negative bias when tested withvarious automated 25-OH vitamin D assays when compared toLC- MS/MS.When testing samples from patients whose predominant form ofVitamin D is Vitamin D2, such as patients receiving VitaminD2 supplementation, results that are subtherapeutic shouldbe confirmed with another method such as LC-MS/MS. Blood Venous blood specimen / Unknown 01/31/2025 2:22 PM EDT 01/31/2025 4:01 PM EDT Roula Alejandre DO LAB BLOOD ORDERABLES Final R esult [facility] [address] [place] [phone] * Vitamin B12 (Cobalamin) and Folate Panel, Serum (01/31/2025 2:22 PM EDT) Vitamin B12 376 200 - 900 pg/mL [facility] Comment:NORMAL 200-900 PG/ML INDETERMINATE 160-199 PG/ML DEFICIENT < 160 PG/ML Folate 17.1 > or = 4.0 ng/mL [facility] Comment:Reference Values:> o r = 4.0 ng/mL< 4.0 ng/mL suggests folate deficiency Methotrexate, aminopterin and folinic acid(leucovorin) are chemotherapeutic agents whose molecularstructures are similar to folate; therefore, the Architectfolate assay cannot be used for patients using these drugs. Blood 01/31/2025 2:22 PM EDT 01/31/2025 4:01 PM EDT Roula Alejandre DO LAB BLOOD ORDERABLES Final R critical [facility] hospital Performing Organization Address City/[facility]/ZIP Co de Phone Number [facility] [address] [place] [phone] * Albumin, Random Urine W/Creatinine (01/31/2025 2:22 PM EDT) Creatinine, Urine 58.38 mg/dL [facility] Microalbumin Urine <5.0 mg/L [facility] Microalbum Creatinine Ratio Ur TNP <30 ug/mg cr [facility] Comment:Unable to calculate albumin/creatinine ratio due to lowmicroalbumin or creatinine result. Urine (Urine, Random) 01/31/2025 2:22 PM EDT 01/31/2025 4:03 PM EDT us Roula Alejandre DO LAB URINE ORDERABLES Final R esult [facility] [address] [place] [phone] * (ABNORMAL) CBC auto differential (01/31/2025 2:22 PM EDT) White Blood Count 8.7 4.8 - 10.8 X10*3/uL [facility] Red Blood Count 3.86(L) 4.60 - 5.80 X10*6/uL [facility] Hemoglobin 11.1(L) 14.0 - 18.0 g/dl [facility] Hematocrit 32.8(L) 42.0 - 52.0 % [facility] Mean Corpuscular Volume 85.0 80.0 - 98.0 fL [facility] Mean Corpuscular Hemoglobin 28.8 27.0 - 33.0 pg [facility] Mean Corpuscular HGB Conc 33.8 31.0 - 36.0 g/dl [facility] Red Cell Distribution Width 13.5 11.0 - 16.0 % [facility] Platelet Count 191 160 - 400 X10*3/uL [facility] Mean Platelet Volume 12.9(H) 9.4 - 12.4 fL [facility] Neutrophils Percent Auto 50.1 45 - 73 % [facility] Imm Gran Pct Auto 0.2 0.0 - 0.4 % [facility] Lymphocytes Percent Auto 34.9 20 - 40 % [facility] Monocytes Percent Auto 10.4 2 - 11 % [facility] Eosinophils Percent Auto 3.9 0 - 4 % [facility] Basophils Percent Auto 0.5 0 - 2 % [facility] NRBC Pct Auto 0.0 0.0 - 0.2 /100WBC [facility] Neutrophils Absolute Auto 4.4 2.0 - 8.3 x10*3/uL [facility] Imm Gran Abs Auto 0.02 0.00 - 0.03 X10*3/uL [facility] Lymphocytes Absolute Auto 3.1 1.2 - 4.9 X10*3/uL [facility] Monocytes Absolute Auto 0.9 0.1 - 1.2 X10*3/uL [facility] Eosinophils Absolute Auto 0.3 0.0 - 0.4 X10*3/uL [facility] Basophils Absolute Auto 0.0 0.0 - 0.2 X10*3/uL [facility] NRBC Abs Auto 0.000 0.0 - 0.012 X10*3/uL [facility] Blood Venous blood specimen / Unknown 01/31/2025 2:22 PM EDT 01/31/2025 4:01 PM EDT Roula Alejandre LAB BLOOD ORDERABLES Final R esult Performing Organization Address [facility] Co de Phone Number [facility] [address] [place] [phone] * Hepatitis C Antibody with Reflex to HCV, RNA, Quantitative, Real-Time PCR (01/31/2025 2:22 PM EDT) Pathologist [facility] Hepatitis C Antibody Nonreactive Nonreactive [facility] Comment:Antibodies to HCV no t detected; does not exclude early acuteHCV infection. Blood Venous blood specimen / Unknown 01/31/2025 2:22 PM EDT 01/31/2025 4:01 PM EDT Roula Alejandre LAB BLOOD ORDERABLES Final R esult Performing Organization Address [facility] Co de Phone Number [facility] [address] [place] [phone] * Iron And Total Iron Binding Capacity (01/31/2025 2:22 PM EDT) Pathologist [facility] Iron 109 45 - 160 mcg/dL [facility] Total Iron Binding Capacity 270 228 - 428 mcg/dL [facility] Percent Iron Saturation 40 15 - 50 % [facility] Unsaturated Iron Binding 161 ug/dL [facility] Blood Venous blood specimen / Unknown 01/31/2025 2:22 PM EDT 01/31/2025 4:01 PM EDT [facility] BLOOD ORDERABLES Final R esult Performing Organization Address [facility] Co de Phone Number [facility] [address] [place] [phone] * Hepatitis A Antibody, Total (01/31/2025 2:22 PM EDT) Pathologist [facility] Hepatitis A Antibody IgG REACTIVE Nonreactive [facility] Comment:The presence of IgG anti-HAV implies past HAV infection(recent or distant) or vaccination against HAV. Blood Venous blood specimen / Unknown 01/31/2025 2:22 PM EDT 01/31/2025 4:01 PM EDT [facility] LAB BLOOD ORDERABLES Final R [facility] Performing Organization Address [facility] de Phone Number [facility] [address] [place] [phone] * Chlamydia/N. Gonorrhoeae RNA, TMA, Urogenitial (01/31/2025 2:22 PM EDT) Pathologist [facility] CT PCR NOT DETECTED Not Detect. [facility] Comment:A not detected test result does not exclude the possibilityof infection because test results can be affected byimproper specimen collection, concurrent antibiotic therapy,or the number of organisms in the specimen which may bebelow the sensitivity of the test. As with many diagnostictests, results from the Xpert CT/NG assay should beinterpreted in conjunction with other laboratory andclinical data available to the clinician.Xpert CT/NG performance has not been evaluated in patientsless than 14 years of age. The assay should not be used forthe evaluationof suspected sexual abuse or for other medico-legalindications. Additional testing is recommended in anycircumstance when false positive or false negative resultscould lead to adverse medical, social or psychologicalconsequences. NG PCR NOT DETECTED Not Detect. [facility] Comment:A not detected test result does not exclude the possibilityof infection because test results can be affected byimproper specimen collection, concurrent antibiotic therapy,or the number of organisms in the specimen which may bebelow the sensitivity of the test. As with many diagnostictests, results from the Xpert CT/NG assay should beinterpreted in conjunction with other laboratory andclinical data available to the clinician.Xpert CT/NG performance has not been evaluated in patientsless than 14 years of age. The assay should not be used forthe evaluationof suspected sexual abuse or for other medico-legalindications. Additional testing is recommended in anycircumstance when false positive or false negative resultscould lead to adverse medical, social or psychologicalconsequences. Urine Urethral structure / Unknown 01/31/2025 2:22 PM EDT 01/31/2025 4:03 PM EDT Narrative [facility] - 01/31/2025 6:29 PM EDT Urine Roula Alejandre DO LAB MICROBIOLOGY - GENERAL O RDERABLES Final Result Performing Organization Address [facility]/ZIP Co de Phone Number [facility] [address] [place] [phone] * Hepatitis B surface antigen, EIA (01/31/2025 2:22 PM EDT) Hepatitis B Surface Ag Negative Negative [facility] Blood Venous blood specimen / Unknown 01/31/2025 2:22 PM EDT 01/31/2025 4:01 PM EDT us Roula Alejandre DO LAB BLOOD ORDERABLES Final R esult Performing Organization Address [facility] Co de Phone Number [facility] [address] [place] [phone] * Hepatitis B Core Antibody, Total (01/31/2025 2:22 PM EDT) Hepatitis B Core Antibody Nonreactive Nonreactive [facility] Blood Venous blood specimen / Unknown 01/31/2025 2:22 PM EDT 01/31/2025 4:01 PM EDT Roula [place] DO LAB BLOOD ORDERABLES Final R esult Performing Organization Address [facility] Co de Phone Number [facility] [address] [place] [phone] * RPR (Monitor) with Reflex to??Titer (01/31/2025 2:22 PM EDT) Pathologist [facility] RPR (Monitor) w/Refl Titer NON-REACTI VE NON-REACT SAM [facility] Comment:THIS TEST WAS PERFOR MED AT:[facility] [place] [id number] TOVAR MD Rapid Plasma Reagin Ab Titer TNP [facility] Blood Venous blood specimen / Unknown 01/31/2025 2:22 PM EDT 01/31/2025 4:01 PM EDT Roula [place] DO LAB BLOOD ORDERABLES Final R [facility] Performing Organization Address [facility] Co de Phone Number [facility] [address] [place] [phone] * HIV-1/2 Antigen and Antibodies, Fourth Generation, with Reflexes (01/31/2025 2:22 PM EDT) HIV AB/AG Nonreactive Nonreactive [facility] Comment:HIV-1 p24 Ag and/or HIV-1/HIV-2 Ab not detected.A test result that is nonreactive does not exclude thepossibility of exposure to or infection with HIV-1 and/orHIV-2. Nonreactive results in this assay for individualswith prior exposure to HIV-1 and/or HIV-2 may be due toantigen and antibody levels that are below the limit ofdetection of this assay.The [employer] HIV Ag/Ab Combo assay result andsupplemental assay results should be interpreted inconjunction with the patient's clinical presentation,history and other laboratory results. If the results areinconsistent with clinical evidence, additional testing issuggested to confirm the result. Blood Venous blood specimen / Unknown 01/31/2025 2:22 PM EDT 01/31/2025 4:01 PM EDT Roula [place] DO LAB BLOOD ORDERABLES Final R esult Performing Organization Address [facility] Co de Phone Number [facility] [address] [place] [phone] * Hepatitis B Surface Antibody, Qualitative (01/31/2025 2:22 PM EDT) ~Hepatitis B Surface Antibody NONREACTIVE Nonreactive [facility] Comment:Nonreactive: < 8.00 mIU/mL Blood Venous blood specimen / Unknown 01/31/2025 2:22 PM EDT 01/31/2025 4:01 PM EDT Roula Hill LAB BLOOD ORDERABLES Final R esult Performing Organization Address [facility] Co de Phone Number [facility] [address] [place] [phone] * TSH (01/31/2025 2:22 PM EDT) Thyroid Stimulating Hormone 1.03 0.32 - 4.0 uIU/mL [facility] Comment:TSH 3rd Generation ( [facility]) Blood Venous blood specimen / Unknown 01/31/2025 2:22 PM EDT 01/31/2025 4:01 PM EDT Roula [place] DO LAB BLOOD ORDERABLES Final R esult Performing Organization Address [facility] Co de Phone Number [facility] [address] [place] [phone] * T4, Free (01/31/2025 2:22 PM EDT) Free T4 (Free Thyroxine) 1.00 0.71 - 1.85 ng/dL [facility] Blood Venous blood specimen / Unknown 01/31/2025 2:22 PM EDT 01/31/2025 4:01 PM EDT Roula Alejandre DO LAB BLOOD ORDERABLES Final R esult Performing Organization Address City/[facility]/ZIP Co de Phone Number [facility] [address] [place] [phone] * (ABNORMAL) Hemoglobin A1c (01/31/2025 2:22 PM EDT) Hemoglobin A1c 8.7(H) <6.0 % [facility] Comment:Hemoglobin A1C Refer ence Range Adults: 4.8 - 6.0 % Non diabetic: < 6.0 % Goal: < 7.0 %Additional Action Suggested: > 8.0 %Note: Hemoglobin A1c results are invalid for patients with abnormal amounts of HbF. Blood transfusions may impact the HbA1c concentration in the patient sample. Estimated Average Glucose 203 mg/dL [facility] Comment:eAG = Estimated ave rage glucose which is %A1C expressed asaverage glucose, using the formula of the [id number] Glucose study (ADAG), Diabetes Care, Vol.31,#8,May. 2007 Blood Venous blood specimen / Unknown 01/31/2025 2:22 PM EDT 01/31/2025 4:01 PM EDT Roula Alejandre DO LAB BLOOD ORDERABLES Final R esult [facility] [address] [place] [phone] * Ferritin (01/31/2025 2:22 PM EDT) Pathologist [facility] Ferritin 109 20 - 250 ng/mL [facility] Blood Venous blood specimen / Unknown 01/31/2025 2:22 PM EDT 01/31/2025 4:01 PM EDT Roula Alejandre DO LAB BLOOD ORDERABLES Final R esult Performing Organization Address City/[facility]/ZIP Co de Phone Number [facility] [address] [place] [phone] * (ABNORMAL) Hepatic Function Panel (01/31/2025 2:22 PM EDT) Pathologist [facility] Bilirubin, Total 0.5 0.0 - 1.0 mg/dL [facility] Bilirubin, Direct 0.2 0.0 - 0.5 mg/dL [facility] Aspartate Amino Transferase 32 5 - 37 U/L [facility] Alanine Aminotransferase 36 0 - 40 U/L [facility] Total Protein 8.8(H) 6.5 - 8.0 g/dL [facility] Albumin Level 4.1 3.5 - 5.0 g/dL [facility] Alkaline Phosphatase 216(H) 39 - 117 U/L [facility] Blood Venous blood specimen / Unknown 01/31/2025 2:22 PM EDT 01/31/2025 4:01 PM EDT Roula Alejandre DO LAB BLOOD ORDERABLES Final R esult Performing Organization Address City/[facility]/ZIP Co de Phone Number [facility] [address] [place] [phone] * (ABNORMAL) Lipid Panel, Standard (01/31/2025 2:22 PM EDT) Triglycerides 167(H) <150 mg/dL [facility] Comment:Desirable Triglyceri de: less than 150 mg/dLBorderline High Triglyceride 150-199 mg/dLHigh Triglyceride: 200-499 mg/dLVery High Triglyceride: greater than or equal to 5OO mg/dL Cholesterol 154 <200 mg/dL [facility] Comment:Desirable Cholestero l: less than 200 mg/dLBorderline High Cholesterol: 200-239 mg/dLHigh Cholesterol: greater than 239 mg/dL LDL Cholesterol Calculated 81 <100 mg/dL [facility] Comment:Desirable LDL: less than 100 mg/dLNear Optimal/Above Optimal LDL: 110- 129 mg/dLBorderline High LDL: 130-159 mg/dLHigh LDL: 160-189 mg/dLVery High LDL: greater than or equal to 190 mg/dL HDL Cholesterol 40(L) >40 mg/dL [facility] Comment:Desirable HDL: great er than 40 mg/dL Note: This HDL assay may give artificially low results in patients with liver disease. Blood Venous blood specimen / Unknown 01/31/2025 2:22 PM EDT 01/31/2025 4:01 PM EDT us Roula Alejandre DO LAB BLOOD ORDERABLES Final R esult [facility] [address], [place] [phone] * (ABNORMAL) Basic Metabolic Panel (01/31/2025 2:22 PM EDT) Sodium 137 135 - 145 mmol/L [facility] Potassium 3.8 3.3 - 5.1 mmol/L [facility] Chloride 101 96 - 108 mmol/L [facility] Carbon Dioxide 26 22 - 29 mmol/L [facility] Anion Gap 14 12 - 20 [facility] Urea Nitrogen (BUN) 17(H) 9 - 16 mg/dL [facility] Creatinine, Serum 0.93 0.5 - 1.4 mg/dL [facility] Estimated Glomerular Filt Rate >60 [facility] Comment:Chronic Kidney Disea se: Estimated GFR < 60 mL/min/1.62t6Urounc Kidney Disease: Estimated GFR < 15 mL/min/1.73m2 Glucose 214(H) 60 - 115 mg/dL [facility] Calcium 9.9 8.4 - 10.2 mg/dL [facility] Blood Venous blood specimen / Unknown 01/31/2025 2:22 PM EDT 01/31/2025 4:01 PM EDT Roula Alejandre DO LAB BLOOD ORDERABLES Final R esult [facility] [address] [place] [phone] * (ABNORMAL) POCT A1C (01/31/2025 2:01 PM [...] Final Result from Last 3 Months Insurance [facility] STANDARD
[2025-02-12] MEDS: gadobutroL 10 ML VIAL IVPUSH (16:42)
== END 2025-02-12 15:45 | disposition home or self-care (01) ==
LOC: HO.MRI 15:44
PROVIDERS: PCP Internal Medicine; Visit Provider Family Medicine
DX: H53.133 Sudden visual loss, bilateral (principal)
CPT/HCPCS: 70553; A9585

== ENCOUNTER → 2025-02-12 15:44 | Outpatient (BNV) | payer MEDICAID, SELFPAY | PROVIDERS: PCP Internal Medicine; Visit Provider Radiology Diagnostic Radiology | DX: I67.82 Cerebral ischemia (principal) | CPT/HCPCS: 70553 ==

== ENCOUNTER 2025-02-19 13:20 | Outpatient (AMB) | payer MEDICAID, SELFPAY ==
[2025-02-19 13:28] VITALS: BP 100/62; PULSE 62; BMI 31.3
--- NOTE | 2025-02-19 13:28 | MHC.OFFVIS ---
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,cardiomegaly Hall Supervisor Required: Yes Hall Supervisor Language: Acid Cleaner Name: [id number] Accompanied by: Spouse Allergies No Known Allergies Allergy (Verified 11/20/24 10:23) Medication List - Last Reconciled 02/19/25 by Nathanael Gill MD apixaban (Eliquis) 5 mg PO BID ascorbic acid (vitamin C) 250 mg PO DAILY atorvastatin 40 mg PO BEDTIME cholecalciferol (vitamin D3) 50 mcg PO DAILY empagliflozin (Jardiance) 10 mg PO DAILY ferrous sulfate 325 mg PO BID folic acid 1 mg PO DAILY hydrochlorothiazide 25 mg PO DAILY metoprolol succinate ER 50 mg PO DAILY omeprazole 20 mg PO DAILY simethicone (Gas Relief (simethicone)) 125 mg PO BID-QID PRN HPI Comments Details: Peter is here for cardiac consultation. There is a history of atrial fibrillation but not entirely clear how long ago he was diagnosed. He has moved from [place] few months back. He cannot see due to cataract issues. Has many comorbidities including diabetes, dyslipidemia. There is mention of congestive heart failure/CAD in history, but patient does not know anything about it. Within limits of his activity, there is no angina or shortness of breath or palpitations or syncopal episodes or in fact anything cardiac sounding. He is on Eliquis and there are no bleeding issues. There is a history of excessive alcohol use in the past but nothing recently. [facility] Medical History (Updated 02/19/25 @ 13:55 by Nathanael Gill MD) Anemia History of alcohol use disorder Hyperlipidemia Type 2 diabetes mellitus Bilateral cataracts Coronary artery disease Atrial fibrillation CHF (congestive heart failure) Family History (Updated 02/19/25 @ 13:35 by Sylvia Haynes CMA) Brother Cancer Mother Diabetes Father Cancer Social History (Updated 02/19/25 @ 13:35 by Sylvia Haynes CMA) Alcohol intake: former Patient Tobacco Use Status: Never used Tobacco Review of Systems Const Denies chills, Denies fatigue, Denies fever(s), Denies frequent falls, Denies weakness, Denies weight gain and Denies weight loss ENT Denies dizziness Card Denies chest pain, Denies leg edema, Denies lightheadedness, Denies palpitations, Denies dyspnea, Denies dyspnea on exertion and Denies orthopnea Resp Denies cough, Denies dyspnea and Denies dyspnea on exertion GI Denies bloating and Denies change in bowel habits Musc Denies muscle weakness, Denies numbness and Denies tingling Neuro Denies dizziness, Denies frequent falls, Denies numbness, Denies tingling and Denies weakness Endo Denies fatigue and Denies palpitations Physical Exam Vital Signs: Last Vital Signs Pulse 62 02/19/25 13:28 BP 100/62 02/19/25 13:28 BMI result Body Mass Index 31.3 Const General: comfortable and no acute distress Orientation/consciousness: patient oriented x3 HEENT Other: Unremarkable Head: Yes normal to inspection Neck Neck: Yes normal visual inspection Chest Chest palpation & inspection: normal inspection of the chest Resp Auscultation: clear to auscultation bilaterally Cardio Palpation: normal PMI Heart sounds: S1 normal heart sound present, S2 normal heart sound present, no gallops, Murmur heart sound present diastolic II/ and at the right sternal border and systolic II/ and at the right sternal border and no rubs GI Palpation (GI): Soft to palpation Back/Spine/Pelvis Other: unremarkable Skin General skin exam: no rashes or lesions noted Neuro General: patient oriented x3 Extrem General: Yes normal to inspection Psych Mental Status: mental status grossly normal Office Procedures EKG Details: EKG with atrial fibrillation at a rate of 62/Min; cannot exclude old septal infarct; [place]. [id number], Complete Assessment & Plan Assessment & Plan (1) Persistent atrial fibrillation: Code(s): I48.19 - Other persistent atrial fibrillation Category: Medical Plan Atrial fibrillation of unknown duration. He seems rate controlled on beta-blockers. May continue that. He is also on anticoagulation and has no bleeding concerns. No changes with that either. We will start with an echocardiogram and Holter monitor for further evaluation. He has got no overt symptoms and can hold off on cardioversion at this time. We will see him back after the testing is completed. Orders: Orders ECG 3 day holter monitor Today Nathanael Gill MD I48.19 - Other persistent atrial fibrillation CA echo transthoracic complete Today Nathanael Gill MD I48.19 - Other persistent atrial fibrillation Medications: Changed From metoprolol succinate ER 25 mg PO DAILY 30 tabs 2RF To metoprolol succinate ER 50 mg PO DAILY Kindra Diaz MD Coding Level of Care Code New Pt Level 4 (79827) Complex EM visit Add On G2211 Diagnoses Persistent atrial fibrillation I48.19 CPT Codes EKG - CPT: 50779-[id number], Complete ([id number])
--- OUTSIDE RECORDS SUMMARY | 2025-02-19 14:27 | XMS_ITS | Clinical Summary ---
Author Organization [employer] Address [address] [facility] 7[address] [place] [address] Care Team Providers Care Structural Manager Name Role Phone Unavailable Primary Care Provider [...] Description 02/06/2025 3:30 PM EDT Clinical Support [facility] [address] [facility] [address] Viri Das RN Impacted cerumen of right ear 02/06/2025 Travel 02/01/2025 Refill [facility] [address] [facility] [address] Roula Alejandre DO 01/31/2025 2:20 PM EDT Office Visit [facility] [address] [place] [phone] Roula Alejandre DO Type 2 diabetes mellitus without complication, without long-term current use of insulin (CMS/HCC) (Primary Dx); Essential hypertension; Other hyperlipidemia; Atrial fibrillation, chronic (CMS/HCC); Cardiomegaly; Anemia, unspecified type; Acute loss of vision, bilateral; Abdominal bloating; Heartburn; Impacted cerumen of right ear 01/31/2025 Travel 12/07/2024 Telephone [facility] [address] [place] [phone] Francisco Khoury MD Appointment Request from Last [...] Description 03/07/2025 10:30 AM EDT Office Visit [facility] [address] [place] [phone] Francisco Khoury MD [address] [place] [phone] Health Maintenance Due Date Last Done Comments [...] patient's age to complete this topic Meningococcal B Vaccine Aged Out No l onger eligible based on patient's age to complete [...] Procedure Name Priority Date/Time Associated Diagnosis Comments MR BRAIN W AND WO CONTRAST Urgent 02/12/2025 4:17 PM EDT Acute loss of vision, bilateral NV REMOVAL IMPACTED CERUMEN IRRIGATION/LVG UNILAT Routine 02/06/2025 [...] (CMS/HCC) from Last 3 Months Results * Mr Brain w/ and w/o Contrast (02/12/2025 4:17 PM EDT) Anatomical Region Laterality Modality Brain Magnetic Resonan ce 02/12/2025 4:17 PM EDT Narrative 02/13/2025 8:22 AM EDT ? [facility] ?[address] ?[place] [address] ? Magnetic Resonance Report ? Signed ? Patient: Peter Armendariz ?MR#: [id number] ?? 1948 ? : 1960 ?Acct:[id number] ? Age/Sex: 64 / M ?ADM Date: 02/12/25 ? Loc: HO.MRI ? Attending Dr: Roula Alejandre DO ? Ordering Physician: Roula Alejandre DO ?? Date of Service: 02/12/25 ?? Procedure(s): MR head/brain wo/w con ?? Accession Number(s): [id number] ? cc: Francisco Jeronimo MD; Roula Alejandre DO ? EXAMINATION: ?? MR BRAIN WITHOUT AND WITH CONTRAST ? CLINICAL INFORMATION: ?? Acute bilateral vision loss July 2024. 64-year-old male. No trauma ?? or accident. ? COMPARISON: ?? No prior brain imaging. ? TECHNIQUE: ?? Multiplanar, multisequence MRI of the brain was obtained before and ?? after the intravenous administration of 8.5 mL Gadavist. Examination ?? performed on a 1.5 Jeimy high-field Siemens unit. ? FINDINGS: ?? There is no diffusion restriction. ?? There is no intracranial hemorrhage, acute infarction, mass effect, or ?? edema. ?? Ventricles, sulci, and cisterns are normal in size and configuration ?? for patient age. Cavum septum pellucidum. No shift of midline. ?? No abnormal hemosiderin deposition is identified. ? There are scattered punctate and minimally confluent foci of white ?? matter T2 hyperintensity in the periventricular, subcortical, and ?? hemispheric deep white matter. These foci are nonspecific but ?? statistically most likely relate to moderate small vessel ischemic ?? changes. No morphology specific to inflammatory demyelination. ? Midline structures appear normally formed. The pituitary gland appears ?? normal. The pineal gland appears normal. ?? Posterior fossa structures demonstrate prominent cisterna magna, normal ?? variant. ?? Cerebellar tonsils are appropriately located. ?? Major flow voids are preserved within the skull base. ? After the administration of contrast, there is no abnormal intra or ?? extra-axial contrast enhancement. ? The globes and orbital contents demonstrate no abnormalities. ?? Optic nerve sheath complexes appear normal. ? There is complete opacification of the left maxillary sinus with low ?? intensity central secretions suggesting inspissated secretions versus ?? fungal colonization. ?? Moderate dependent mucosal thickening right maxillary sinus. Moderate ?? mucosal thickening right sphenoid sinus. Mild to moderate scattered ?? mucosal thickening throughout the ethmoid sinuses. ?? Trace fluid in both mastoid tips. Tympanic cavities are aerated ?? normally. ? Extracranial soft tissues demonstrate no abnormalities. ?? No suspicious bone marrow changes are evident. ?? Atlantoaxial joint is demonstrate mild to moderate degenerative changes. ? MR/MR head/brain wo/w con ?? IMPRESSION: ?? 1. No evidence of intracranial hemorrhage, acute infarction, mass ?? effect, or edema. No abnormal intra or extra-axial contrast enhancement. ?? 2. Moderate changes of small vessel ischemic disease. ?? 3. Scattered moderate paranasal sinus disease, with complete ?? opacification of the left maxillary sinus as described, likely chronic. ?? Central low signal intensity suggests inspissated secretions and/or ?? fungal colonization. ?? 4. Additional ancillary findings as discussed. ? Electronically signed by: ??Alexx Curry MD ??02/13/2025 08:19 AM EDT RP ? Dictated By: ?Alexx Curry MD ? Signed By: ?<Electronically signed by Alexx Curry MD in OV> ?02/13/25 0819 ? DD/ 1617 ? TD/TT: 02/12/25 1638 ? [employer] Equipment Operator: ? Procedure Note Denise He - 02/18/[address] [phone] Magnetic Resonance Report Signed Patient: Peter Armendariz [facility]#: [id number] 1948 : 9Acct:[id number] Age/Sex: 64 / MADM Date: 02/12/25 Loc: HO.MRI Attending Dr: Roula Alejandre DO Ordering Physician: Roula Alejandre DO Date of Service: 02/12/25 Procedure(s): MR head/brain wo/w con Accession Number(s): [id number] cc: Francisco Jeronimo MD; Roula Alejandre DO EXAMINATION: MR BRAIN WITHOUT AND WITH CONTRAST CLINICAL INFORMATION: Acute bilateral vision loss July 2024. 64-year-old male. No trauma or accident. COMPARISON: No prior brain imaging. TECHNIQUE: Multiplanar, multisequence MRI of the brain was obtained before and after the intravenous administration of 8.5 mL Gadavist. Examination performed on a 1.5 Jeimy high-field Siemens unit. FINDINGS: There is no diffusion restriction. There is no intracranial hemorrhage, acute infarction, mass effect, or edema. Ventricles, sulci, and cisterns are normal in size and configuration for patient age. Cavum septum pellucidum. No shift of midline. No abnormal hemosiderin deposition is identified. There are scattered punctate and minimally confluent foci of white matter T2 hyperintensity in the periventricular, subcortical, and hemispheric deep white matter. These foci are nonspecific but statistically most likely relate to moderate small vessel ischemic changes. No morphology specific to inflammatory demyelination. Midline structures appear normally formed. The pituitary gland appears normal. The pineal gland appears normal. Posterior fossa structures demonstrate prominent cisterna magna, normal variant. Cerebellar tonsils are appropriately located. Major flow voids are preserved within the skull base. After the administration of contrast, there is no abnormal intra or extra-axial contrast enhancement. The globes and orbital contents demonstrate no abnormalities. Optic nerve sheath complexes appear normal. There is complete opacification of the left maxillary sinus with low intensity central secretions suggesting inspissated secretions versus fungal colonization. Moderate dependent mucosal thickening right maxillary sinus. Moderate mucosal thickening right sphenoid sinus. Mild to moderate scattered mucosal thickening throughout the ethmoid sinuses. Trace fluid in both mastoid tips. Tympanic cavities are aerated normally. Extracranial soft tissues demonstrate no abnormalities. No suspicious bone marrow changes are evident. Atlantoaxial joint is demonstrate mild to moderate degenerative changes. MR/MR head/brain wo/w con IMPRESSION: 1. No evidence of intracranial hemorrhage, acute infarction, mass effect, or edema. No abnormal intra or extra-axial contrast enhancement. 2. Moderate changes of small vessel ischemic disease. 3. Scattered moderate paranasal sinus disease, with complete opacification of the left maxillary sinus as described, likely chronic. Central low signal intensity suggests inspissated secretions and/or fungal colonization. 4. Additional ancillary findings as discussed. Electronically signed by: Alexx Curry MD 02/13/2025 08:19 AM EDT RP Dictated By: Alexx Curry MD Signed By: <Electronically signed by Alexx Curry MD in OV> 02/13/25 0819 DD/ 1617 TD/TT: 02/12/25 1638 [employer] Operator: us Roula Alejandre DO IMG MRI PROCEDURES Edited Re sult - Final * NV REMOVAL IMPACTED CERUMEN IRRIGATION/LVG UNILAT (02/06/2025 3:29 PM EDT) Narrative Viri Das RN - 02/06/2025 3:29 PM EDT Viri [...] 25-Hydroxy, Total, Immunoassay (01/31/2025 2:22 PM EDT) Vitamin D 25-OH Total 21.9(L) >30 ng/mL [facility] Comment: Health Based Reference Values*< 20 ??ng/mL ??[id number] ng/mL ??Insufficient> 30 ??ng/mL ??Sufficient*David DURHAM. N [...] DO LAB BLOOD ORDERABLES Final R esult [facility] [address], [place] [phone] * Vitamin B12 (Cobalamin) and Folate Panel, Serum (01/31/2025 2:22 PM EDT) Vitamin B12 376 200 - 900 pg/mL [facility] Comment:NORMAL 200-900 PG/ML INDETERMINATE 160-199 PG/ML DEFICIENT < 160 PG/ML Folate 17.1 > or = 4.0 ng/mL [facility] Comment:Reference Values:> o r = 4.0 ng/mL< 4.0 ng/mL suggests folate deficiency Methotrexate, aminopterin and folinic acid(leucovorin) are chemotherapeutic agents whose molecularstructures are similar to folate; therefore, the Architectfolate assay cannot be used for patients using these drugs. Blood 01/31/2025 2:22 PM EDT 01/31/2025 4:01 PM EDT Roula Alejandre DO LAB BLOOD ORDERABLES Final R esult Performing Organization Address [facility]/ZIP Co de Phone Number [facility] [address] [place] [phone] * Albumin, Random Urine W/Creatinine (01/31/2025 2:22 PM EDT) Creatinine, Urine 58.38 mg/dL [facility] Microalbumin Urine <5.0 mg/L [facility] Microalbum Creatinine Ratio Ur TNP <30 ug/mg cr [facility] Comment:Unable to calculate albumin/creatinine ratio due to lowmicroalbumin or creatinine result. Urine (Urine, Random) 01/31/2025 2:22 PM EDT 01/31/2025 4:03 PM EDT Roula Alejandre DO LAB URINE ORDERABLES Final R esult Performing Organization Address [facility] Co de Phone Number [facility] [address] [place] [address] [phone] * (ABNORMAL) CBC auto differential (01/31/2025 2:22 PM EDT) White Blood Count 8.7 4.8 - 10.8 X10*3/uL [facility] Red Blood Count 3.86(L) 4.60 - 5.80 X10*6/uL [facility] Hemoglobin 11.1(L) 14.0 - 18.0 g/dl [facility] Hematocrit 32.8(L) 42.0 - 52.0 % [facility] Mean Corpuscular Volume 85.0 80.0 - 98.0 fL [facility] Mean Corpuscular Hemoglobin 28.8 27.0 - 33.0 pg [facility] Mean Corpuscular HGB Conc 33.8 31.0 - 36.0 g/dl [facility] Red Cell Distribution Width 13.5 11.0 - 16.0 % [facility] Platelet Count 191 160 - 400 X10*3/uL [facility] Mean Platelet Volume 12.9(H) 9.4 - 12.4 fL [facility] Neutrophils Percent Auto 50.1 45 - 73 % [facility] Imm Gran Pct Auto 0.2 0.0 - 0.4 % [facility] Lymphocytes Percent Auto 34.9 20 - 40 % [facility] Monocytes Percent Auto 10.4 2 - 11 % [facility] Eosinophils Percent Auto 3.9 0 - 4 % [facility] Basophils Percent Auto 0.5 0 - 2 % [facility] NRBC Pct Auto 0.0 0.0 - 0.2 /100WBC [facility] Neutrophils Absolute Auto 4.4 2.0 - 8.3 x10*3/uL [facility] Imm Gran Abs Auto 0.02 0.00 - 0.03 X10*3/uL [facility] Lymphocytes Absolute Auto 3.1 1.2 - 4.9 X10*3/uL [facility] Monocytes Absolute Auto 0.9 0.1 - 1.2 X10*3/uL [facility] Eosinophils Absolute Auto 0.3 0.0 - 0.4 X10*3/uL [facility] Basophils Absolute Auto 0.0 0.0 - 0.2 X10*3/uL [facility] NRBC Abs Auto 0.000 0.0 - 0.012 X10*3/uL [facility] Blood Venous blood specimen / Unknown 01/31/2025 2:22 PM EDT 01/31/2025 4:01 PM EDT us Roula Alejandre DO LAB BLOOD ORDERABLES Final R esult [facility] [address] [place] [address] [phone] * Hepatitis C Antibody with Reflex to HCV, RNA, Quantitative, Real-Time PCR (01/31/2025 2:22 PM EDT) [facility] Hepatitis C Antibody Nonreactive Nonreactive [facility] Comment:Antibodies to HCV no t detected; does not exclude early acuteHCV infection. Blood Venous blood specimen / Unknown 01/31/2025 2:22 PM EDT 01/31/2025 4:01 PM EDT Roula Alejandre DO LAB BLOOD ORDERABLES Final R esult Performing Organization Address [facility]/ZIP Co de Phone Number [facility] [address] [place] [address] [phone] * Iron And Total Iron Binding Capacity (01/31/2025 2:22 PM EDT) [facility] Iron 109 45 - 160 mcg/dL [facility] Total Iron Binding Capacity 270 228 - 428 mcg/dL [facility] Percent Iron Saturation 40 15 - 50 % [facility] Unsaturated Iron Binding 161 ug/dL [facility] Blood Venous blood specimen / Unknown 01/31/2025 2:22 PM EDT 01/31/2025 4:01 PM EDT Roula Alejandre DO LAB BLOOD ORDERABLES Final R esult [facility] [address] [place] [phone] * Hepatitis A Antibody, Total (01/31/2025 2:22 PM EDT) [facility] Hepatitis A Antibody IgG REACTIVE Nonreactive [facility] Comment:The presence of IgG anti-HAV implies past HAV infection(recent or distant) or vaccination against HAV. Blood Venous blood specimen / Unknown 01/31/2025 2:22 PM EDT 01/31/2025 4:01 PM EDT us Roula Alejandre DO LAB BLOOD ORDERABLES Final R esult [facility] [address] [place] [phone] * Chlamydia/N. Gonorrhoeae RNA, TMA, Urogenitial (01/31/2025 2:22 PM EDT) CT PCR NOT DETECTED Not Detect. [facility] Comment:A not detected test result [...] psychologicalconsequences. NG PCR NOT DETECTED Not Detect. [facility] Comment:A not detected test result [...] PM EDT 01/31/2025 4:03 PM EDT Narrative [facility] - 01/31/2025 6:29 PM EDT Urine Roula Alejandre DO LAB MICROBIOLOGY - GENERAL O RDERABLES Final Result Performing Organization Address [facility]/ZIP Co de Phone Number [facility] [address] [place] [address] [phone] * Hepatitis B surface antigen, EIA (01/31/2025 2:22 PM EDT) Hepatitis B Surface Ag Negative Negative [facility] Blood Venous blood specimen / Unknown 01/31/2025 2:22 PM EDT 01/31/2025 4:01 PM EDT Roula Alejandre DO LAB BLOOD ORDERABLES Final R esult Performing Organization Address [facility] Co de Phone Number [facility] [address] [place] [address] [phone] * Hepatitis B Core Antibody, Total (01/31/2025 2:22 PM EDT) Hepatitis B Core Antibody Nonreactive Nonreactive [facility] Blood Venous blood specimen / Unknown 01/31/2025 2:22 PM EDT 01/31/2025 4:01 PM EDT Roula Hill DO LAB BLOOD ORDERABLES Final R esult Performing Organization Address [facility] Co de Phone Number [facility] [address] [place] [address] [phone] * RPR (Monitor) with Reflex to??Titer (01/31/2025 2:22 PM EDT) RPR (Monitor) w/Refl Titer NON-REACTI VE NON-REACT SAM [facility] Comment:THIS TEST WAS PERFOR MED AT:[employer] [place] [phone] TOVAR MD Rapid Plasma Reagin Ab Titer TNP [facility] Blood Venous blood specimen / Unknown 01/31/2025 2:22 PM EDT 01/31/2025 4:01 PM EDT us Roula Sheritarocío SINGH LAB BLOOD ORDERABLES Final R esult Performing Organization Address [facility]/ZIP Co de Phone Number [facility] [address] [place] [address] [phone] * HIV-1/2 Antigen and Antibodies, Fourth Generation, with Reflexes (01/31/2025 2:22 PM EDT) [facility] HIV AB/AG Nonreactive Nonreactive [facility] Comment:HIV-1 p24 Ag and/or HIV-1/HIV-2 Ab not detected.A test result that is nonreactive does not exclude thepossibility of exposure to or infection with HIV-1 and/orHIV-2. Nonreactive results in this assay for individualswith prior exposure to HIV-1 and/or HIV-2 may be due toantigen and antibody levels that are below the limit ofdetection of this assay.The [employer] HIV Ag/Ab Combo assay result andsupplemental assay results should be interpreted inconjunction with the patient's clinical presentation,history and other laboratory results. If the results areinconsistent with clinical evidence, additional testing issuggested to confirm the result. Blood Venous blood specimen / Unknown 01/31/2025 2:22 PM EDT 01/31/2025 4:01 PM EDT us Roula Hill LAB BLOOD ORDERABLES Final R esult Performing Organization Address [facility]/ZIP Co de Phone Number [facility] [address] [place] [phone] * Hepatitis B Surface Antibody, Qualitative (01/31/2025 2:22 PM EDT) Pathologist [facility] ~Hepatitis B Surface Antibody NONREACTIVE Nonreactive [facility] Comment:Nonreactive: < 8.00 mIU/mL Blood Venous blood specimen / Unknown 01/31/2025 2:22 PM EDT 01/31/2025 4:01 PM EDT Roula Hill LAB BLOOD ORDERABLES Final R esult Performing Organization Address [facility]/ZIP Co de Phone Number [facility] [address] [place] [address] [phone] * TSH (01/31/2025 2:22 PM EDT) Thyroid Stimulating Hormone 1.03 0.32 - 4.0 uIU/mL [facility] Comment:TSH 3rd Generation ( [facility]) Blood Venous blood specimen / Unknown 01/31/2025 2:22 PM EDT 01/31/2025 4:01 PM EDT Roula Hill LAB BLOOD ORDERABLES Final R esult Performing Organization Address [facility] Co de Phone Number [facility] [address] [place] [address] [phone] * T4, Free (01/31/2025 2:22 PM EDT) Free T4 (Free Thyroxine) 1.00 0.71 - 1.85 ng/dL [facility] Blood Venous blood specimen / Unknown 01/31/2025 2:22 PM EDT 01/31/2025 4:01 PM EDT Roula Lyonjacquelinerocío LAB BLOOD ORDERABLES Final R esult Performing Organization Address [facility] Co de Phone Number [facility] [address] [place] [address] [phone] * (ABNORMAL) Hemoglobin A1c (01/31/2025 2:22 PM EDT) Hemoglobin A1c 8.7(H) <6.0 % [facility] Comment:Hemoglobin A1C Refer ence Range Adults: 4.8 - 6.0 % Non diabetic: < 6.0 % Goal: < 7.0 %Additional Action Suggested: > 8.0 %Note: Hemoglobin A1c results are invalid for patients with abnormal amounts of HbF. Blood transfusions may impact the HbA1c concentration in the patient sample. Estimated Average Glucose 203 mg/dL [facility] Comment:eAG = Estimated ave rage glucose which is %A1C expressed asaverage glucose, using the formula of the [id number] Glucose study (ADAG), Diabetes Care, Vol.31,#8,May. 2007 Blood Venous blood specimen / Unknown 01/31/2025 2:22 PM EDT 01/31/2025 4:01 PM EDT Roula Alejandre LAB BLOOD ORDERABLES Final R esult Performing Organization Address [facility]/ZIP Co de Phone Number [facility] [address] [place] [address] [phone] * Ferritin (01/31/2025 2:22 PM EDT) Ferritin 109 20 - 250 ng/mL [facility] Blood Venous blood specimen / Unknown 01/31/2025 2:22 PM EDT 01/31/2025 4:01 PM EDT [facility] BLOOD ORDERABLES Final R esult Performing Organization Address City/[facility]/ZIP Co de Phone Number [facility] [address] [place] [address] [phone] * (ABNORMAL) Hepatic Function Panel (01/31/2025 2:22 PM EDT) Bilirubin, Total 0.5 0.0 - 1.0 mg/dL [facility] Bilirubin, Direct 0.2 0.0 - 0.5 mg/dL [facility] Aspartate Amino Transferase 32 5 - 37 U/L [facility] Alanine Aminotransferase 36 0 - 40 U/L [facility] Total Protein 8.8(H) 6.5 - 8.0 g/dL [facility] Albumin Level 4.1 3.5 - 5.0 g/dL [facility] Alkaline Phosphatase 216(H) 39 - 117 U/L [facility] Blood Venous blood specimen / Unknown 01/31/2025 2:22 PM EDT 01/31/2025 4:01 PM EDT Roula Alejandre DO LAB BLOOD ORDERABLES Final R esult [facility] [address] [place] [phone] * (ABNORMAL) Lipid Panel, Standard (01/31/2025 2:22 PM EDT) Triglycerides 167(H) <150 mg/dL [facility] Comment:Desirable Triglyceri de: less than 150 mg/dLBorderline High Triglyceride 150-199 mg/dLHigh Triglyceride: 200-499 mg/dLVery High Triglyceride: greater than or equal to 5OO mg/dL Cholesterol 154 <200 mg/dL [facility] Comment:Desirable Cholestero l: less than 200 mg/dLBorderline High Cholesterol: 200-239 mg/dLHigh Cholesterol: greater than 239 mg/dL LDL Cholesterol Calculated 81 <100 mg/dL [facility] Comment:Desirable LDL: less than 100 mg/dLNear Optimal/Above Optimal LDL: 110- 129 mg/dLBorderline High LDL: 130-159 mg/dLHigh LDL: 160-189 mg/dLVery High LDL: greater than or equal to 190 mg/dL HDL Cholesterol 40(L) >40 mg/dL [facility] Comment:Desirable HDL: great er than 40 mg/dL Note: This HDL assay may give artificially low results in patients with liver disease. Blood Venous blood specimen / Unknown 01/31/2025 2:22 PM EDT 01/31/2025 4:01 PM EDT us Roula Jurcsak DO LAB BLOOD ORDERABLES Final R esult Performing Organization Address [facility] Co de Phone Number [facility] [address] [place] [phone] * (ABNORMAL) Basic Metabolic Panel (01/31/2025 2:22 PM EDT) Sodium 137 135 - 145 mmol/L [facility] Potassium 3.8 3.3 - 5.1 mmol/L [facility] Chloride 101 96 - 108 mmol/L [facility] Carbon Dioxide 26 22 - 29 mmol/L [facility] Anion Gap 14 12 - 20 [facility] Urea Nitrogen (BUN) 17(H) 9 - 16 mg/dL [facility] Creatinine, Serum 0.93 0.5 - 1.4 mg/dL [facility] Estimated Glomerular Filt Rate >60 [facility] Comment:Chronic Kidney Disea se: Estimated GFR < 60 mL/min/[id number] Kidney Disease: Estimated GFR < 15 mL/min/1.73m2 Glucose 214(H) 60 - 115 mg/dL [facility] Calcium 9.9 8.4 - 10.2 mg/dL [facility] Blood Venous blood specimen / Unknown 01/31/2025 2:22 PM EDT 01/31/2025 4:01 PM EDT Roula Alejandre DO LAB BLOOD ORDERABLES Final R esult Performing Organization Address [facility]/ZIP Co de Phone Number [facility] [address] [place] [address] [phone] * (ABNORMAL) POCT A1C (01/31/2025 2:01 [...] Final Result from Last 3 Months Insurance [facility]
== END 2025-02-19 13:57 | disposition home or self-care (01) ==
LOC: HO.HCS 13:20
PROVIDERS: PCP Internal Medicine; Visit Provider Internal Medicine
DX: I48.19 Other persistent atrial fibrillation (principal)
CPT/HCPCS: 93010; 99214

== ENCOUNTER → 2025-02-19 13:20 | Outpatient (BNVA) | payer MEDICAID, SELFPAY | PROVIDERS: PCP Internal Medicine; Visit Provider Internal Medicine | DX: I48.19 Other persistent atrial fibrillation (principal); I50.9 Heart failure, unspecified; I25.10 Atherosclerotic heart disease of native coronary artery without angina pectoris; Z79.01 Long term (current) use of anticoagulants | CPT/HCPCS: 93005; 99212 ==

== ENCOUNTER → 2025-03-04 08:34 | Outpatient (REF) | payer MEDICAID, SELFPAY ==
--- NOTE | 2025-03-04 08:38 | CA_ITS ---
Transthoracic Echocardiogram Patient (Last, First, Middle): Peter Armendariz M Gender: Male Date of : 1960 Age: 63 Procedure Date: 03/04/2025 Procedure Type: Transthoracic Echocardiogram Location: OP Height: 167.64 cm Weight: 83.01 kg BSA: 1.93 m2 Heart Rate: 60 bpm BP: 100 / 62 mmHg Auto Parker: SB Referring MD: Nathanael Gill MD Symptoms: I48.19 - Other persistent atrial fibrillation Study Quality: Adequate ECG Rhythm: Atrial Fibrillation Conclusions: - The left ventricular systolic function is moderately decreased. The calculated ejection fraction is 41% by biplane method. - The mid inferoseptal and mid anteroseptal segments are hypokinetic. - There is moderate aortic valve stenosis. 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 Severe mitral stenosis. - Moderate to severe pulmonary hypertension is present. - There is mild dilatation of the sinuses of Valsalva measuring 4.10 cm and mild dilatation of the ascending aorta measuring 4.20 cm. Findings Left Ventricle Normal left ventricular cavity size. There is moderately increased left ventricular wall thickness. The left ventricular systolic function is moderately decreased. The calculated ejection fraction is 41% by biplane method. There is moderate global hypokinesis. Diastolic function is indeterminate on the basis of available data. Wall Motion Rest Echo Findings The mid inferoseptal and mid anteroseptal segments are hypokinetic. Right Ventricle There is mildly decreased right ventricular systolic function. Atria The left atrium is mildly dilated. The right atrium is moderately dilated. Aortic Valve There is moderate aortic valve stenosis. The peak aortic velocity is 3.42 m/s with a calculated peak gradient of 47 mmHg. The mean gradient is 26 mmHg. The aortic valve area is 1.32 cm2. There is trace (trivial) aortic valve regurgitation. Mitral Valve There is no mitral valve regurgitation. 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 Severe mitral stenosis. Pulmonic Valve There is trace pulmonic valve regurgitation. Tricuspid Valve There is mild tricuspid valve regurgitation. Moderate to severe pulmonary hypertension is present. Great Vessels There is mild dilatation of the sinuses of Valsalva measuring 4.10 cm and mild dilatation of the ascending aorta measuring 4.20 cm. Venous The inferior vena cava is normal in size and collapses greater than 50% with inspiration. Pericardium/Pleural There is no evidence of pericardial effusion. Prior Study Comparison No prior study available for comparison. Measurements 2D Linear Measurements IVSd: 1.06 0.6-0.9/0.6-1.0 cm LVIDd: 4.87 3.9-5.3/4.2-5.9 cm LVIDd Index: 2.52 2.4-3.2/2.2-3.1 cm/m2 LVIDs: 3.99 2.0-3.6 cm LVPWd: 1.61 0.7-1.1 cm LA Diam: 4.20 2.7-3.8/3.0-4.0 cm LAIDs Index: 2.18 1.5-2.3 cm/m2 LV Mass: 325.69 67-162/88-224 g LV Mass Index: 168.75 43-95/49-115 g/m2 LVOT Diam: 2.50 3.0+(-)1.3 cm 2D Systolic Function EF 4C: 46.00 >55% EF 2C: 32.30 >55% EF BiP: 40.70 >55% Mitral Valve MV VTI: 1.00 MV Pk Saravanan: 2.78 MV Mn Saravanan: 1.57 MV Pk Grad: 31.00 MV Mn Grad: 12.00 MV Pk E: 2.49 MV Decel Time: 762.00 E'Medial: 3.64 E/E' Med: 68.40 MVA Continuity: 1.22 Aortic Valve AoV Pk Saravanan: 3.42 AoV Mn Saravanan: 2.37 AoV VTI: 0.93 AoV Pk Grad: 47.00 Aov Mn Grad: 26.00 MILO Cont.VTI: 1.32 AI Pk Saravanan: 5.03 AI Norman: 2.21 LVOT LVOT Pk Saravanan: 0.91 LVOT Mn Saravanan: 0.65 LVOT VTI: 0.25 LVOT Pk Grad: 3.00 LVOT Mn Grad: 2.00 LVOT Diam: 2.50 LVOT Area: 4.91 Diastolic Function MV Pk E: 2.49 E'Medial: 3.64 E/E' Med: 68.40 Right Ventricle TAPSE (mm): 13.20 TVS' Saravanan: 7.00 Tricuspid Valve TR Pk Saravanan: 3.77 TR Pk Grad: 57.00 RA Press: 3.00 RVSP: 60.00 Great Vessels Aorta Sinus of Valsalva: 4.10 2.0-3.5 cm Ao Asc: 4.20 2.1-3.4 cm Pulmonary Valve PV Pk Saravanan: 0.83 Peak PV Grad: 3.00 Updated in Other Vendor System with Status of Final Nathnaael Gill MD electronically signed on 03/04/2025 10:11:53 AM with status of Final
--- OUTSIDE RECORDS SUMMARY | 2025-03-04 08:50 | XMS_ITS | Encounter Summary ---
Author Organization [employer] Address [address] [place] [address] Care Team Providers Care Nail Professional Name Role Phone Unavailable Primary Care Provider Unavailabl e Reason for Visit * Reason Comments Med Refill Encounter Details Date Type Department Care Team (Late st Contact Info) Description 03/01/2025 Refill [facility] [address], [place] [phone] Roula Alejandre DO [address] [place], [place] [phone] Social History Tobacco Use Types Packs/Day Years [...] Description 03/07/2025 10:30 AM EDT Office Visit [facility] [address] [place] [address] Francisco Khoury MD [address] [place] [address] documented as of this encounter Visit Diagnoses Not on filedocumented in this encounter
== END ==
LOC: HO.CARD 08:34
PROVIDERS: Absent Provider Internal Medicine; PCP Internal Medicine; Visit Provider Family Medicine
DX: I48.19 Other persistent atrial fibrillation (principal)
CPT/HCPCS: 93242; 93306

== ENCOUNTER → 2025-03-04 08:38 | Outpatient (BNV) | payer MEDICAID, SELFPAY | PROVIDERS: Absent Provider Internal Medicine; PCP Internal Medicine; Visit Provider Internal Medicine | DX: I27.20 Pulmonary hypertension, unspecified (principal); I05.0 Rheumatic mitral stenosis; I35.0 Nonrheumatic aortic (valve) stenosis; I05.8 Other rheumatic mitral valve diseases | CPT/HCPCS: 93306 ==

== ENCOUNTER 2025-03-07 11:06 | Outpatient (REF) | payer MEDICAID, SELFPAY ==
[2025-03-07 15:05] LABS: Prostate Specific Antigen Scr 0.28 ng/mL (<0.05-4.0)
== END 2025-03-07 11:07 | disposition home or self-care (01) ==
LOC: HO.HHCL 11:06
PROVIDERS: Visit Provider Internal Medicine
DX: Z00.00 Encounter for general adult medical examination without abnormal findings (principal)
CPT/HCPCS: 36415; 84153

== ENCOUNTER 2025-03-21 10:48 | Outpatient (REF) | payer MEDICAID, SELFPAY ==
--- NOTE | ~2025-03-21 | US_ITS ---
CLINICAL HISTORY: intermittent abdominal bloating US abdomen complete. COMPARISON: None provided. Technique: Real time sonographic imaging, including color-flow imaging, was performed by the sugar reprocess operator head. Multiple sales representative malt liquors static images were saved for review. FINDINGS: The visualized portions of the pancreas appear normal. The liver has normal echotexture. Liver, right lobe size: 17.4 cm, mildly enlarged The gallbladder is normal in size. Nonmobile calcifications measuring up to 4 mm versus small polyps present along the gallbladder body/fundus. There is a negative sonographic Flores's sign. Gallbladder wall: 2-3 mm, normal. Common bile duct: 7 mm, upper limits normal. Right kidney: Cortical medullary differentiation is maintained. Anechoic simple cyst measuring 0.9 x 0.8 x 0.8 cm in the midportion of the right kidney. No hydronephrosis. Right kidney length: 11.1 cm Left kidney: Cortical medullary differentiation is maintained. No calculus or focal parenchymal abnormality identified. No hydronephrosis. Left kidney length: 9.6 cm The spleen has normal echogenicity. Splenic length: 11.5 cm, normal. No free intraperitoneal fluid identified. IMPRESSION: 1. Nonmobile cholelithiasis versus small gallbladder polyps. No evidence for cholecystitis. No specific follow-up recommendations. 2. Mild hepatomegaly. 3. No evidence of renal obstruction. This document has been electronically signed by: Ralph Gaytan MD on 03/21/2025 15:17:02
--- OUTSIDE RECORDS SUMMARY | 2025-03-21 12:21 | XMS_ITS | Clinical Summary ---
Author Organization [employer] Address [address] [place] [address] Care Team Providers Care Transmission Assembler Name Role Phone Francisco Khoury MD Primary Care Provide r Allergies No known active allergies Medications FREESTYLE LITE test strip Use to test blood sugar 2 times daily 100 each 11 02/01/20 25 026 Active Lancets misc Use to test blood sugar 2 times daily 100 each 02/01/20 25 Active Alcohol Swabs 70 % pads Use to test blood sugar 2 times daily 100 each 02/01/20 25 Active Blood Pressure kit 1 each 1 (one) time per week. 1 kit 02/01/20 25 Active empagliflozin (Jardiance) 10 MG Take 1 tablet (10 mg) by mouth Once per day. 30 tablet 3 02/01/20 25 Active atorvastatin (Lipitor) 40 MG tablet Take 1 tablet (40 mg) by mouth Once per day. 30 tablet 3 02/01/20 25 026 Active hydroCHLOROthi azide (HYDRODiuril) 25 MG tablet Take 1 tablet (25 mg) by mouth Once per day. 30 tablet 3 02/01/20 25 026 Active apixaban (Eliquis) 5 MG tablet Take 1 tablet (5 mg) by mouth 2 times daily. 60 tablet 3 02/01/20 25 Active omeprazole OTC (PriLOSEC OTC) 20 MG EC tablet Take 1 tablet (20 mg) by mouth before breakfast. Do not crush, chew, or split. 30 tablet 3 02/01/20 25 026 Active ferrous sulfate (Fe Tabs) 325 (65 Fe) MG EC tablet Take 1 tablet (325 mg) by mouth with breakfast. Do not crush, chew, or split. 30 tablet 3 02/01/20 Active Ascorbic Acid (vitamin C) 250 MG tablet Take 1 tablet (250 mg) by mouth Once per day. 30 tablet 3 02/01/20 25 Active folic acid (Folvite) 1 MG tablet Take 1 tablet (1 mg) by mouth Once per day. 30 tablet 3 02/01/20 25 Active metoprolol succinate XL (Toprol XL) 50 MG 24 hr tablet Take 1 tablet (50 mg) by mouth Once per day. Do not crush or chew. 30 tablet 3 02/01/20 Active cholecalcifero l (Vitamin D-3) 50 MCG (2000 UT) capsule Take 1 capsule (50 mcg) by mouth Once per day. 90 capsule 02/02/20 Active fluticasone (Flonase) 50 MCG/ACT nasal spray Administer 2 sprays into each nostril Once per day. Shake gently. Before first use, prime pump. After use, clean tip and replace cap. 16 g 02/22/20 Active cetirizine (ZyrTEC) 10 MG tablet Take 1 tablet (10 mg) by mouth Once per day. 90 tablet 02/22/20 Active Gas Relief Extra Strength 125 MG chewable tablet CHEW 1 TABLET BY MOUTH EVERY 6 HOURS NEEDED FOR GAS 30 tablet 1 03/05/20 25 Active metFORMIN XR (Glucophage-XR ) 500 MG 24 hr tabletIndicati ons:Type 2 diabetes mellitus without complication, without long-term current use of insulin ([facility]) Take 1 tablet (500 mg) by mouth with evening meal. Do not crush, chew, or split. 30 tablet 3 03/07/20 25 Active clotrimazole (Lotrimin) 1 % creamIndicatio ns:Tinea pedis of both feet Apply topically 2 times daily for 28 days. 30 g 1 03/07/20 25 025 Active simethicone (Mylicon) 125 MG chewable tablet Chew 1 tablet (125 mg) every 6 (six) hours if needed for flatulence. 30 tablet 1 02/01/20 25 025 Discontinued Active Problems Problem Noted Date Diagnosed Date Preventative health care 03/07/2025 Assessment & Plan (03/07/2025 10:39 AM EDT): PSA: ordered Colonoscopy: referred Low vitamin D level 03/07/2025 Assessment & Plan (03/07/2025 10:47 AM EDT): On Vitamin D 2,000 daily Atrial fibrillation, chronic 01/31/2025 Assessment & Plan (03/07/2025 10:26 AM EDT): Patient here for a New Patient visit, recently moved from [place] 10/2024 as he was alone in [place] and needed assistance. Has a Hx of Afib. On beta blockers and anticoagulation. Recently seen at [facility] Cardi[facility] 02/19/2025 and they recommended to continue current treatment and ordered an ECHO and Holter monitor ECHO completed 03/04/2025 showed: Conclusions: - The left ventricular systolic function is moderately decreased. The calculated ejection fraction is 41% by biplane method. - The mid inferoseptal and mid anteroseptal segments are hypokinetic. - There is moderate aortic valve stenosis. 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 Severe mitral stenosis. - Moderate to severe pulmonary hypertension is present. - There is mild dilatation of the sinuses of Valsalva measuring 4.10 cm and mild dilatation of the ascending aorta measuring 4.20 cm. Congestive heart failure 01/31/2025 Assessment & Plan (03/07/2025 10:57 AM EDT): Most recent ECHO 03/04/2025: Conclusions: - The left ventricular systolic function is moderately decreased. The calculated ejection fraction is 41% by biplane method. - The mid inferoseptal and mid anteroseptal segments are hypokinetic. - There is moderate aortic valve stenosis. 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 Severe mitral stenosis. - Moderate to severe pulmonary hypertension is present. - There is mild dilatation of the sinuses of Valsalva measuring 4.10 cm and mild dilatation of the ascending aorta measuring 4.20 cm. Under the care of [facility] Cardiology, patient has a follow up visit April 04 2025 Essential hypertension 01/31/2025 Assessment & Plan (03/07/2025 10:33 AM EDT): Patient with HTN Blood pressure today: Regimen: hydrochlorothiazide 25 mg po daily and Metoprolol 50 mg po daily Most recent BMP Lab Results Component Value Date NA 137 01/31/2025 K 3.8 01/31/2025 CL 101 01/31/2025 BUN 17 (H) 01/31/2025 CREATININE 0.93 01/31/2025 Within normal limits Plan: Continue current regimen Type 2 diabetes mellitus 01/31/2025 Assessment & Plan (03/07/2025 10:53 AM EDT): Patient here for a New Patient visit. Hx of DM Hgb A1c 01/31/2025: 8.7 Current regimen: Jardiance 10 mg po daily Microalbumin: ordered Eye exam: referred Plan: start Metformin XR 500 mg po daily Follow up: 4 weeks Cataracts, bilateral 01/31/2025 Assessment & Plan (03/07/2025 10:31 AM EDT): Under the care of [facility], since last 02/05/2025 they recommended Cataract surgery under general anesthesia once cleared by Cardiology Anemia 01/31/2025 Assessment & Plan (03/07/2025 10:39 AM EDT): Lab Results Component Value Date WBC 8.7 01/31/2025 HGB 11.1 (L) 01/31/2025 HCT 32.8 (L) 01/31/2025 MCV 85.0 01/31/2025 PLT 191 01/31/2025 Normal Iron studies and B12, Folate US Abdomen appointment 03/21/25 at 11 AM ([facility]) No records of EGD or Colonoscopy Plan: GI referral Hyperlipidemia 01/31/2025 Assessment & Plan (03/07/2025 10:32 AM EDT): Patient's most recent Lipid profile Lab Results Component Value Date TRIG 167 (H) 01/31/2025 CHOL 154 01/31/2025 LDLCHOLCAL 81 01/31/2025 HDL 40 (L) 01/31/2025 Currently on a regimen of Lipitor 40 mg po qhs Cardiomegaly 01/31/2025 History of alcohol use disorder 01/31/2025 Resolved Problems Problem Noted Date Diagnosed Date Resolved Date Coronary artery disease 01/31/2025 05/0 10/2024 Encounters Date Type Department Care Team Description 03/07/2025 10:30 AM EDT Office Visit [facility] [address] [place] [phone] Francisco Khoury MD Atrial fibrillation, chronic (CMS/HCC) (Primary Dx); Type 2 diabetes mellitus without complication, without long-term current use of insulin (CMS/HCC); Cortical age-related cataract of both eyes; Other hyperlipidemia; Essential hypertension; Chronic systolic congestive heart failure (CMS/HCC); Anemia, unspecified type; Preventative health care; Low vitamin D level; Tinea pedis of both feet 03/07/2025 Telephone [facility] [address] [place] [phone] Wanda Yao RN VNA Referral 03/07/2025 Travel 03/06/[address] [address] Symone Reyna MA chart prep 03/01/2025 Refill [facility] [address] [place] [address] Roula Alejandre DO 02/28/2025 Patient Outreach [facility] MED & PEDS [address] [place] [address] Francisco Khoury MD Pre-visit Planning (SDOH will need to be completed in office. ) 02/22/2025 Telephone [facility] [address] [place] [phone] Roula Alejandre DO RESULTS 02/21/[address] [address] Roula Alejandre DO 02/06/2025 3:30 PM EDT Clinical Support [address] [address] Viri Das RN Impacted cerumen of right ear 02/06/2025 Travel 02/01/2025 Refill [facility] [address] [place] [address] Roula Alejandre DO 01/31/2025 2:20 PM EDT Office Visit [facility] [address] [place] [address] Roula Alejandre DO Type 2 diabetes mellitus without complication, without long-term current use of insulin (CMS/HCC) (Primary Dx); Essential hypertension; Other hyperlipidemia; Atrial fibrillation, chronic (CMS/HCC); Cardiomegaly; Anemia, unspecified type; Acute loss of vision, bilateral; Abdominal bloating; Heartburn; Impacted cerumen of right ear 01/31/2025 Travel from Last 3 Months Family History Medical History Relation Name Comments Prostate cancer Brother Relation Name Status Comments Brother Social History Tobacco Use Types Packs/Day Years Used Date Smoking Tobacco: Never Tobacco Cessation:Counseling Given: Not Answered Depression Answer Date Recorded Patient Health Questionnaire-9 Score 0 03/07/2025 Patient Health Questionnaire-9 Score 0 03/07/2025 Last PHQ-9: Questionnaire Data Not on file 0 03/07/2025 Housing Stability Answer Date Recorded What is your housing situation today? I have anat ritter 03/07/[address] you li ve. Do you have problems with any of the following? None of the above 03/07/2025 Food Insecurity Answer Date Recorded Within the past 12 months, y ou worried that your food would run out before you got money to buy more: Never True 03/07/2025 Within the past 12 months,th e food you bought just didn't last and you didn't have enough money to get more: Never True 01/2025 Transportation Answer Date Recorded In the past 12 months, has l ack of transportation kept you from medical appts, meetings, work or from getting things needed for daily living? No 03/07/2025 Utilities Answer Date Recorded In the past 12 months, has t he electric, gas, oil or water company threatened to shut off services in your home? No 03/07/2025 Depression Answer Date Recorded Patient Health Questionnaire-2 Score 0 03/07/2025 Internet Access Answer Date Recorded Internet Access Q1 Yes 03/07/2025 Internet Access Q2 Not on file 03/07/2025 Sex and Gender Information Value Date Recorded Sex Assigned at Male 01/31/2025 1:00 PM EDT Legal Sex Male 12:09 PM EST Gender Identity Male 01/31/2025 1:00 PM EDT Sexual Orientation Straight 01/31/2025 1: 00 PM EDT Last Filed Vital Signs Vital Sign Reading Time Taken Comments Blood Pressure 138/76 03/07/2025 10:28 AM EDT Pulse 90 01/31/2025 1:32 PM EDT Temperature 36.5 C (97.7 F) 03/07/2025 10:28 AM EDT Respiratory Rate 20 03/07/2025 10:2 8 AM EDT Oxygen Saturation 98% 03/07/2025 10: 28 AM EDT Inhaled Oxygen Concentration - - Weight 88.4 kg (194 lb 12.8 oz) 01/31/2025 1:32 PM EDT Height 170.2 cm (5' 7 ) 03/07/2025 10:2 8 AM EDT Body Mass Index - - Plan of Treatment Upcoming Encounters Date Type Department Care Team (Late st Contact Info) Description 04/04/2025 11:00 AM EDT Office Visit [facility] MED[facility] [address] [place] [phone] Francisco Khoury MD [address] [place] [phone] 04/19/2025 11:00 AM EDT Medication Management [facility] [address] [place] [phone] Gina Peterson, PharmD [address] [place] [address] Health Maintenance Due Date Last Done Comments CT Colonography 1959 Colonoscopy 1959 Colorectal Cancer Screening 1960 FIT DNA/Cologuard 1959 FIT 1959 FOBT 1960 Sigmoidoscopy 1959 Diabetes: Foot Exam 1969 Eye Exam 1969 DTaP/Tdap/Td Vaccines (1 - Tdap) 1978 Pneumococcal Vaccine: 50+ Years (1 of 2 - PCV) 1978 Zoster Vaccines (1 of 2) 2009 RSV Patients and Patients Aged 60 years or older (1 - Risk 60-74 years 1-dose series) 2019 COVID-19 Vaccine (1 - 2023-2 5 season) 2024 Influenza Vaccine (Season Ended) 2025 Diabetes: Hemoglobin A1C 06/07/2025 025, 01/31/2025, 01/31/2025 Diabetes: Urine Protein Screening 01/31/2026 01/31/2025 Lipid Panel 01/31/2026 01/31/2025 Tobacco Screening 01/31/2026 01/31/2025 Alcohol/Substance Use Screening 03/07/2026 03/07/2025 Depression Screening 03/07/2026 03/07/2025, 03/07/2025 SDOH Screening 03/07/2026 03/07/2025 Hepatitis C Screening Completed 01/31/2025 HIB Vaccines [...] Procedure Name Priority Date/Time Associated Diagnosis Comments PSA, SCREEN Routine 03/07/2025 11:08 AM EDT Preventative health care POCT GLYCATED HEMOGLOBIN, TOTAL Routine 03/07/2025 10:37 AM EDT Type 2 diabetes mellitus without complication, without long-term current use of insulin ([facility]) POCT GLUCOSE Routine 03/07/2025 10:34 AM EDT Type 2 diabetes mellitus without complication, without long-term current use of insulin (CMS/HCC) MR BRAIN W AND WO CONTRAST Urgent 02/12/2025 4:17 PM EDT Acute loss of vision, bilateral [place] REMOVAL IMPACTED CERUMEN IRRIGATION/LVG UNILAT Routine 02/06/2025 [...] (CMS/HCC) from Last 3 Months Results * PSA, Screen (03/07/2025 11:08 AM EDT) Pathologist [facility] PSA, Total 0.28 <0.05 - 4.0 ng/mL [facility] Comment:PSA methodology: Abb woodrow Alinity i ChemiluminescentMicroparticle Immunoassay (CMIA) Blood Venous blood specimen / Unknown 03/07/2025 11:08 AM EDT 03/07/2025 1:31 PM EDT Francisco Choi MD LAB BLOOD ORDERABLES Final Result [facility] [address] [place] [phone] * (ABNORMAL) POCT HGB A1C (03/07/2025 10:37 AM EDT) Only the most recent of2 resultswithin the time period is included. Pathologist [facility] Hemoglobin A1C 7.9(A) 4.0 - 6.0 % QC Media Lot # [id number] Lot# Expiration Date , Blood 03/07/2025 10:3 7 AM EDT Francisco Choi MD POINT OF CARE TEST EN TER/EDIT ORDERABLES Final Result * (ABNORMAL) POCT Glucose (03/07/2025 10:34 AM EDT) Only the most recent of2 resultswithin the time period is included. Pathologist [facility] Glucose Blood, POC 226(A) 60 - 200 mg/dL QC Media Lot # [id number] Lot# Expiration Date Blood Capillary blood specimen / Unknown 03/07/2025 10:34 AM EDT us Francisco Choi MD POINT OF CARE TEST EN TER/EDIT ORDERABLES Final Result * Mr Brain w/ and w/o Contrast (02/12/2025 4:17 PM EDT) Anatomical Region Laterality Modality Brain Magnetic Resonan ce 02/12/2025 4:17 PM EDT Narrative 02/13/2025 8:22 AM EDT [address] [address] Magnetic Resonance Report Signed Patient: Peter Armendariz MR#: [id number] [birth year] Acct:[id number] Age/Sex: 64 / M ADM Date: 02/12/25 Loc: HO.MRI Attending Dr: Roula Alejandre DO Ordering Physician: Roula Alejandre DO Date of Service: 02/12/25 Procedure(s): MR head/brain wo/w con Accession Number(s): [id number] cc: Francisco Jeronimo MD; Roula Alejandre DO [...] Alexx Curry MD 02/13/2025 08:19 AM EDT Dictated By: Alexx Curry MD Signed By: <Electronically signed by Alexx Curry MD in OV> 02/13/25 0819 DD/ 1617 TD/TT: 02/12/25 1638 Employment Services Director: Procedure Note Donotuseinterpreter, Image - 02/18/[address] [address] Magnetic Resonance Report Signed Patient: Peter Armendariz MMR#: [id number] 1948 : 1960cct:[id number] Age/Sex: 64 / MADM Date: 02/12/25 Loc: HO.MRI Attending Dr: Roula Alejandre DO Ordering Physician: Roula Alejandre DO Date of Service: 02/12/25 Procedure(s): MR head/brain wo/w con Accession Number(s): [id number] cc: Francisco Jeronimo MD; Roula Alejandre DO [...] Alexx Curry MD 02/13/2025 08:19 AM EDT Dictated By: Alexx Curry MD Signed By: <Electronically signed by Alexx Curry MD in OV> 02/13/25 0819 DD/ 1617 TD/TT: 02/12/25 1638 Employment Services Director: Roula Alejandre DO IMG MRI PROCEDURES Edited Re sult - Final * [place] REMOVAL IMPACTED CERUMEN IRRIGATION/LVG UNILAT (02/06/2025 3:29 PM EDT) Viri Garcia RN - 02/06/2025 3:29 PM EDT Viri Das RN 02/06/2025 3:36 PM Ear Cerumen Removal Date/Time: 02/06/2025 3:29 PM Performed by: Viri Das RN Authorized by: Anisa Parmar MD Consent: Consent given by: Patient Risks, benefits, and alternatives were discussed: yes Risks discussed: Pain, dizziness and incomplete removal Procedure details: Location: R ear Procedure type: irrigation Procedure outcomes: cerumen removed Post-procedure details: Inspection: Some cerumen remaining, no bleeding and TM intact Hearing quality: Improved Procedure completion: Tolerated well, no immediate complications Anisa Parmar MD IN CLINIC/BEDSIDE ORDERABL ES Final Result * (ABNORMAL) Vitamin D, 25-Hydroxy, Total, Immunoassay (01/31/2025 2:22 PM EDT) Vitamin D 25-OH Total 21.9(L) >30 ng/mL [facility] Comment: Health Based Reference Values*< 20 ng/mL Rhbogzkne43-78 ng/mL Insufficient> 30 ng/mL Sufficient*David DURHAM. N Engl J Med. 2007;357:266-280There is [...] Vitamin D results fromdifferent laboratories and methodologies. Published datademonstrated that results from patients undergoinghemodialysis may show a negative bias when tested withvarious automated 25-OH vitamin D assays when compared toLC-MS/MS.When testing samples from patients whose predominant form ofVitamin D is Vitamin D2, such as patients receiving VitaminD2 supplementation, results that are subtherapeutic shouldbe confirmed with another method such as LC-MS/MS. Blood Venous blood specimen / Unknown 01/31/2025 2:22 PM EDT 01/31/2025 4:01 PM EDT Roula Alejandre LAB BLOOD ORDERABLES Final R esult Performing Organization Address [facility]ZIP Co de Phone Number [facility] [address] [place] [phone] * Vitamin B12 (Cobalamin) and Folate Panel, Serum (01/31/2025 2:22 PM EDT) Vitamin B12 376 200 - 900 pg/mL [facility] Comment:NORMAL 200-900 PG/ML INDETERMINATE 160-199 PG/ML DEFICIENT < 160 PG/ML Folate 17.1 > or = 4.0 ng/mL [facility] Comment:Reference Values:> o r = 4.0 ng/mL< 4.0 ng/mL suggests folate deficiency Methotrexate, aminopterin and folinic acid(leucovorin) are chemotherapeutic agents whose molecularstructures are similar to folate; therefore, the Architectfolate assay cannot be used for patients using these drugs. Blood 01/31/2025 2:22 PM EDT 01/31/2025 4:01 PM EDT Roula Alejandre LAB BLOOD ORDERABLES Final R esult Performing Organization Address [facility]/ZIP Co de Phone Number [facility] [address] [place] [phone] * Albumin, Random Urine W/Creatinine (01/31/2025 2:22 PM EDT) Creatinine, Urine 58.38 mg/dL [facility] Microalbumin Urine <5.0 mg/L H [facility] Microalbum Creatinine Ratio Ur TNP <30 ug/mg cr [facility] Comment:Unable to calculate albumin/creatinine ratio due to lowmicroalbumin or creatinine result. Urine (Urine, Random) 01/31/2025 2:22 PM EDT 01/31/2025 4:03 PM EDT us Roula Alejandre DO LAB URINE ORDERABLES Final R esult [facility] [address] [place] [phone] * (ABNORMAL) CBC auto differential (01/31/2025 2:22 PM EDT) White Blood Count 8.7 4.8 - 10.8 X10*3/uL [facility] Red Blood Count 3.86(L) 4.60 - 5.80 X10*6/uL [facility] Hemoglobin 11.1(L) 14.0 - 18.0 g/dl [facility] Hematocrit 32.8(L) 42.0 - 52.0 % [facility] Mean Corpuscular Volume 85.0 80.0 - 98.0 fL [facility] Mean Corpuscular Hemoglobin 28.8 27.0 - 33.0 pg [facility] Mean Corpuscular HGB Conc 33.8 31.0 - 36.0 g/dl [facility] Red Cell Distribution Width 13.5 11.0 - 16.0 % [facility] Platelet Count 191 160 - 400 X10*3/uL [facility] Mean Platelet Volume 12.9(H) 9.4 - 12.4 fL [facility] Neutrophils Percent Auto 50.1 45 - 73 % [facility] Imm Gran Pct Auto 0.2 0.0 - 0.4 % [facility] Lymphocytes Percent Auto 34.9 20 - 40 % [facility] Monocytes Percent Auto 10.4 2 - 11 % [facility] Eosinophils Percent Auto 3.9 0 - 4 % [facility] Basophils Percent Auto 0.5 0 - 2 % [facility] NRBC Pct Auto 0.0 0.0 - 0.2 /100WBC [facility] Neutrophils Absolute Auto 4.4 2.0 - 8.3 x10*3/uL [facility] Imm Gran Abs Auto 0.02 0.00 - 0.03 X10*3/uL [facility] Lymphocytes Absolute Auto 3.1 1.2 - 4.9 X10*3/uL [facility] Monocytes Absolute Auto 0.9 0.1 - 1.2 X10*3/uL [facility] Eosinophils Absolute Auto 0.3 0.0 - 0.4 X10*3/uL [facility] Basophils Absolute Auto 0.0 0.0 - 0.2 X10*3/uL [facility] NRBC Abs Auto 0.000 0.0 - 0.012 X10*3/uL [facility] Blood Venous blood specimen / Unknown 01/31/2025 2:22 PM EDT 01/31/2025 4:01 PM EDT us Roula Alejandre DO LAB BLOOD ORDERABLES Final R esult [facility] [address] [place] [phone] * Hepatitis C Antibody with Reflex to HCV, RNA, Quantitative, Real-Time PCR (01/31/2025 2:22 PM EDT) Hepatitis C Antibody Nonreactive Nonreactive [facility] Comment:Antibodies to HCV no t detected; does not exclude early acuteHCV infection. Blood Venous blood specimen / Unknown 01/31/2025 2:22 PM EDT 01/31/2025 4:01 PM EDT Roula Alejandre LAB BLOOD ORDERABLES Final R esult Performing Organization Address [facility] Co de Phone Number [facility] [address] [place] [phone] * Iron And Total Iron Binding Capacity (01/31/2025 2:22 PM EDT) [facility] Iron 109 45 - 160 mcg/dL [facility] Total Iron Binding Capacity 270 228 - 428 mcg/dL [facility] Percent Iron Saturation 40 15 - 50 % [facility] Unsaturated Iron Binding 161 ug/dL [facility] Blood Venous blood specimen / Unknown 01/31/2025 2:22 PM EDT 01/31/2025 4:01 PM EDT Roula Magallonmt [facility] LAB BLOOD ORDERABLES Final R esult Performing Organization Address [facility] de Phone Number [facility] [address] [place] [phone] * Hepatitis A Antibody, Total (01/31/2025 2:22 PM EDT) [facility] Hepatitis A Antibody IgG REACTIVE Nonreactive [facility] Comment:The presence of IgG anti-HAV implies past HAV infection(recent or distant) or vaccination against HAV. Blood Venous blood specimen / Unknown 01/31/2025 2:22 PM EDT 01/31/2025 4:01 PM EDT [facility] BLOOD ORDERABLES Final R esult Performing Organization Address [facility] de Phone Number [facility] [address] [place] [phone] * Chlamydia/N. Gonorrhoeae RNA, TMA, Urogenitial (01/31/2025 2:22 PM EDT) [facility] CT PCR NOT DETECTED Not Detect. [facility] Comment:A not detected test result does [...] psychologicalconsequences. NG PCR NOT DETECTED Not Detect. [facility] Comment:A not detected test result does [...] PM EDT 01/31/2025 4:03 PM EDT Narrative [facility] - 01/31/2025 6:29 PM EDT Urine us Roula Alejandre DO LAB MICROBIOLOGY - GENERAL O RDERABLES Final Result [facility] [address] [place] [phone] * Hepatitis B surface antigen, EIA (01/31/2025 2:22 PM EDT) Hepatitis B Surface Ag Negative Negative [facility] Blood Venous blood specimen / Unknown 01/31/2025 2:22 PM EDT 01/31/2025 4:01 PM EDT [facility] BLOOD ORDERABLES Final R esult Performing Organization Address [facility]ZIP Co de Phone Number [facility] [address] [place] [phone] * Hepatitis B Core Antibody, Total (01/31/2025 2:22 PM EDT) Hepatitis B Core Antibody Nonreactive Nonreactive [facility] Blood Venous blood specimen / Unknown 01/31/2025 2:22 PM EDT 01/31/2025 4:01 PM EDT [facility] BLOOD ORDERABLES Final R esult Performing Organization Address [facility] Co de Phone Number [facility] [address] [place] [phone] * RPR (Monitor) with Reflex to??Titer (01/31/2025 2:22 PM EDT) RPR (Monitor) w/Refl Titer NON-REACTI VE NON-REACT SAM [facility] Comment:THIS TEST WAS PERFOR MED AT:[id number] [place] [id number] TOVAR MD Rapid Plasma Reagin Ab Titer TNP [facility] Blood Venous blood specimen / Unknown 01/31/2025 2:22 PM EDT 01/31/2025 4:01 PM EDT [facility] BLOOD ORDERABLES Final R esult Performing Organization Address [facility] Co de Phone Number [facility] [address] [place] [phone] * HIV-1/2 Antigen and Antibodies, Fourth Generation, with Reflexes (01/31/2025 2:22 PM EDT) HIV AB/AG Nonreactive Nonreactive [facility] Comment:HIV-1 p24 Ag and/or HIV-1/HIV-2 Ab not detected.A test result that is nonreactive does not exclude thepossibility of exposure to or infection with HIV-1 and/orHIV-2. Nonreactive results in this assay for individualswith prior exposure to HIV-1 and/or HIV-2 may be due toantigen and antibody levels that are below the limit ofdetection of this assay.The [employer] HIV Ag/Ab Combo assay result andsupplemental assay results should be interpreted inconjunction with the patient's clinical presentation,history and other laboratory results. If the results areinconsistent with clinical evidence, additional testing issuggested to confirm the result. Blood Venous blood specimen / Unknown 01/31/2025 2:22 PM EDT 01/31/2025 4:01 PM EDT [facility] BLOOD ORDERABLES Final R esult Performing Organization Address [facility]/ZIP Co de Phone Number [facility] [address] [place] [phone] * Hepatitis B Surface Antibody, Qualitative (01/31/2025 2:22 PM EDT) ~Hepatitis B Surface Antibody NONREACTIVE Nonreactive [facility] Comment:Nonreactive: < 8.00 mIU/mL Blood Venous blood specimen / Unknown 01/31/2025 2:22 PM EDT 01/31/2025 4:01 PM EDT [facility] BLOOD ORDERABLES Final R esult Performing Organization Address [facility]/ZIP Co de Phone Number [facility] [address] [place] [phone] * TSH (01/31/2025 2:22 PM EDT) Thyroid Stimulating Hormone 1.03 0.32 - 4.0 uIU/mL [facility] Comment:TSH 3rd Generation ( [facility]) Blood Venous blood specimen / Unknown 01/31/2025 2:22 PM EDT 01/31/2025 4:01 PM EDT [facility] BLOOD ORDERABLES Final R esult Performing Organization Address [facility] Co de Phone Number [facility] [address] [place] [phone] * T4, Free (01/31/2025 2:22 PM EDT) Free T4 (Free Thyroxine) 1.00 0.71 - 1.85 ng/dL [facility] Blood Venous blood specimen / Unknown 01/31/2025 2:22 PM EDT 01/31/2025 4:01 PM EDT [facility]OD ORDER[facility]LES Final R esult Performing Organization Address [facility] de Phone Number [facility] [address] [place] [phone] * (ABNORMAL) Hemoglobin A1c (01/31/2025 2:22 PM EDT) Hemoglobin A1c 8.7(H) <6.0 % [facility] Comment:Hemoglobin A1C Refer ence Range Adults: 4.8 - 6.0 % Non diabetic: < 6.0 % Goal: < 7.0 %Additional Action Suggested: > 8.0 %Note: Hemoglobin A1c results are invalid for patients with abnormal amounts of HbF. Blood transfusions may impact the HbA1c concentration in the patient sample. Estimated Average Glucose 203 mg/dL [facility] Comment:eAG = Estimated ave rage glucose which is %A1C expressed asaverage glucose, using the formula of the W5D-OjbbbzjJxljafs Glucose study (ADAG), Diabetes Care, Vol.31,#8,2007 Blood Venous blood specimen / Unknown 01/31/2025 2:22 PM EDT 01/31/2025 4:01 PM EDT Roula Alejandre DO LAB BLOOD ORDERABLES Final R esult Performing Organization Address [facility] Co de Phone Number [facility] [address] [place] [phone] * Ferritin (01/31/2025 2:22 PM EDT) Ferritin 109 20 - 250 ng/mL [facility] Blood Venous blood specimen / Unknown 01/31/2025 2:22 PM EDT 01/31/2025 4:01 PM EDT [facility] Alejandre [facility] BLOOD ORDERABLES Final R esult Performing Organization Address [facility] de Phone Number [facility] [address] [place] [phone] * (ABNORMAL) Hepatic Function Panel (01/31/2025 2:22 PM EDT) Bilirubin, Total 0.5 0.0 - 1.0 mg/dL [facility] Bilirubin, Direct 0.2 0.0 - 0.5 mg/dL [facility] Aspartate Amino Transferase 32 5 - 37 U/L [facility] Alanine Aminotransferase 36 0 - 40 U/L [facility] Total Protein 8.8(H) 6.5 - 8.0 g/dL [facility] Albumin Level 4.1 3.5 - 5.0 g/dL [facility] Alkaline Phosphatase 216(H) 39 - 117 U/L [facility] Blood Venous blood specimen / Unknown 01/31/2025 2:22 PM EDT 01/31/2025 4:01 PM EDT [facility] DO LAB BLOOD ORDERABLES Final R esult Performing Organization Address [facility]/ZIP Co de Phone Number [facility] [address] [place] [phone] * (ABNORMAL) Lipid Panel, Standard (01/31/2025 2:22 PM EDT) Triglycerides 167(H) <150 mg/dL [facility] Comment:Desirable Triglyceri de: less than 150 mg/dLBorderline High Triglyceride 150-199 mg/dLHigh Triglyceride: 200-499 mg/dLVery High Triglyceride: greater than or equal to 5OO mg/dL Cholesterol 154 <200 mg/dL [facility] Comment:Desirable Cholestero l: less than 200 mg/dLBorderline High Cholesterol: 200-239 mg/dLHigh Cholesterol: greater than 239 mg/dL LDL Cholesterol Calculated 81 <100 mg/dL [facility] Comment:Desirable LDL: less than 100 mg/dLNear Optimal/Above Optimal LDL: 110- 129 mg/dLBorderline High LDL: 130-159 mg/dLHigh LDL: 160-189 mg/dLVery High LDL: greater than or equal to 190 mg/dL HDL Cholesterol 40(L) >40 mg/dL [facility] Comment:Desirable HDL: great er than 40 mg/dL Note: This HDL assay may give artificially low results in patients with liver disease. Blood Venous blood specimen / Unknown 01/31/2025 2:22 PM EDT 01/31/2025 4:01 PM EDT Roula Alejandre DO LAB BLOOD ORDERABLES Final R esult [facility] [address] [place] [phone] * (ABNORMAL) Basic Metabolic Panel (01/31/2025 2:22 PM EDT) Sodium 137 135 - 145 mmol/L [facility] Potassium 3.8 3.3 - 5.1 mmol/L [facility] Chloride 101 96 - 108 mmol/L [facility] Carbon Dioxide 26 22 - 29 mmol/L [facility] Anion Gap 14 12 - 20 [facility] Urea Nitrogen (BUN) 17(H) 9 - 16 mg/dL [facility] Creatinine, Serum 0.93 0.5 - 1.4 mg/dL [facility] Estimated Glomerular Filt Rate >60 [facility] Comment:Chronic Kidney Disea se: Estimated GFR < 60 mL/min/[id number] Kidney Disease: Estimated GFR < 15 mL/min/1.73m2 Glucose 214(H) 60 - 115 mg/dL [facility] Calcium 9.9 8.4 - 10.2 mg/dL [facility] Blood Venous blood specimen / Unknown 01/31/2025 2:22 PM EDT 01/31/2025 4:01 PM EDT us Roula Alejandre DO LAB BLOOD ORDERABLES Final R esult [facility] [address] [place] [phone] from Last 3 Months Insurance [facility] STAND[facility] Care Teams Transmission Assembler Relationship Specialty Start Date End Date Francisco Khoury MD [address] [place] [address] PCP - General Internal Medicine 03/07/25
== END 2025-03-21 10:49 | disposition home or self-care (01) ==
LOC: HO.US 10:48
PROVIDERS: PCP Internal Medicine; Visit Provider Family Medicine
DX: R14.0 Abdominal distension (gaseous) (principal)
CPT/HCPCS: 76700

== ENCOUNTER → 2025-03-21 10:52 | Outpatient (BNV) | payer MEDICAID, SELFPAY | PROVIDERS: PCP Internal Medicine; Visit Provider Radiology Diagnostic Radiology | DX: N28.1 Cyst of kidney, acquired (principal) | CPT/HCPCS: 76700 ==

== ENCOUNTER 2025-04-04 12:46 | Outpatient (REF) | payer MEDICAID, SELFPAY ==
[2025-04-04 15:17] LABS: Hematocrit 42.0 % (42.0-52.0); Hemoglobin 13.9 g/dl (14.0-18.0); Mean Corpuscular HGB Conc 33.1 g/dl (31.0-36.0); Mean Corpuscular Hemoglobin 26.7 pg (27.0-33.0); Mean Corpuscular Volume 80.6 fL (80.0-98.0); NRBC Abs Auto 0.000 X10*3/uL (0.0-0.012); NRBC Pct Auto 0.0 /100WBC (0.0-0.2); Platelet Count 184 X10*3/uL (160-400); Red Blood Count 5.21 X10*6/uL (4.60-5.80); White Blood Count 7.0 X10*3/uL (4.8-10.8)
[2025-04-04 15:19] LABS: INTERNATIONAL NORM RATIO 1.3 (0.9-1.1); Prothrombin Time 15.2 SEC (10.9-12.4)
[2025-04-04 16:16] LABS: Anion Gap 14 (12-20); Blood Urea Nitrogen 23 mg/dL (9-16); Calcium 9.8 mg/dL (8.4-10.2); Carbon Dioxide 27 mmol/L (22-29); Chloride 102 mmol/L (96-108); Estimated Glomerular Filt Rate > 60; Potassium 4.0 mmol/L (3.3-5.1); Sodium 139 mmol/L (135-145)
== END 2025-04-04 12:47 | disposition home or self-care (01) ==
LOC: HO.LAB 12:46
PROVIDERS: PCP Internal Medicine; Visit Provider Internal Medicine
DX: I25.10 Atherosclerotic heart disease of native coronary artery without angina pectoris (principal); I48.19 Other persistent atrial fibrillation; I42.9 Cardiomyopathy, unspecified; I35.0 Nonrheumatic aortic (valve) stenosis; I27.20 Pulmonary hypertension, unspecified; I77.810 Thoracic aortic ectasia; Z79.01 Long term (current) use of anticoagulants; I34.2 Nonrheumatic mitral (valve) stenosis; Z79.84 Long term (current) use of oral hypoglycemic drugs; Z79.899 Other long term (current) drug therapy
CPT/HCPCS: 36415; 80048; 85027; 85610; 99212

== ENCOUNTER 2025-04-04 12:46 | Outpatient (AMB) | payer MEDICAID, SELFPAY ==
--- OUTSIDE RECORDS SUMMARY | 2025-04-04 12:53 | XMS_ITS | Clinical Summary ---
Author Organization [employer] Address [address] [facility] [address] [place] [address] Care Team Providers Care Certified Novell Engineer Name Role Phone Francisco Khoury MD Primary [...] by mouth Once per day. 30 tablet 02/01/20 Active folic acid (Folvite) 1 MG tablet Take 1 tablet (1 mg) by mouth Once per day. 30 tablet 02/01/20 Active metoprolol succinate XL (Toprol XL) 50 MG 24 hr tablet Take 1 tablet (50 mg) by mouth Once per day. Do not crush or chew. 30 tablet 02/01/20 Active cholecalcifero l (Vitamin D-3) 50 [...] GAS 30 tablet 1 03/05/20 25 Active clotrimazole (Lotrimin) 1 % creamIndicatio ns:Tinea pedis of both feet APPLY TO THE AFFECTED AREA(S) TWICE DAILY FOR 28 DAYS 30 g 1 04/02/20 25 Active metFORMIN XR (Glucophage-XR ) 500 MG 24 hr tabletIndicati ons:Type 2 diabetes mellitus without complication, without long-term current use of insulin (CMS/HCC) Take 2 tablets (1,000 mg) by mouth with evening meal. Do not crush, chew, or split. 30 tablet 3 04/04/20 25 Active metFORMIN XR (Glucophage-XR ) 500 MG 24 hr tabletIndicati ons:Type 2 diabetes mellitus without complication, without long-term current use of insulin (CMS/HCC) Take 1 tablet (500 mg) by mouth with evening meal. Do not crush, chew, or split. 30 tablet 3 03/07/20 25 025 Discontinued(Re order (will not trigger notification to Pharmacy)) clotrimazole (Lotrimin) 1 % creamIndicatio ns:Tinea pedis of both feet Apply topically 2 times daily for 28 days. 30 g 1 03/07/20 25 025 Discontinued metFORMIN XR (Glucophage-XR ) 500 MG 24 hr tabletIndicati ons:Type 2 diabetes mellitus without complication, without long-term current use of insulin (CMS/HCC) Take 1 tablet (500 mg) by mouth with evening meal. Do not crush, chew, or split. 30 tablet 3 04/04/20 25 025 Discontinued Active Problems Problem Noted Date Diagnosed Date Calculus of gallbladder with out cholecystitis without obstruction 04/04/2025 Assessment & Plan (04/04/2025 11:05 AM EDT): Recent Abdominal US showed; Abd US 03/21/2025 1. Nonmobile cholelithiasis versus small gallbladder polyps. No evidence for cholecystitis. No specific follow-up recommendations. Mild hepatomegaly. No evidence of renal obstruction. Obesity (BMI 30-39.9) 04/04/2025 Assessment & Plan (04/04/2025 11:14 AM EDT): Patient has been counseled and educated about diet and exercise. Personal goal of weight loss discussedPatient has comorbidity of: DM Dietary Recommendations: Fruits, vegetables, whole grains, protein foods, and fat-free or low-fat dairy products are healthy choices. Eat different types of protein foods in your diet. This can include seafood, lean meats, poultry, beans, peas, lentils, nuts, seeds, soy products, and eggs. Limit foods and beverages higher in added sugars, saturated fat, and sodium. Exercise Recommendations: At least 150 minutes of moderate-intensity physical activity per week, or an equivalent combination of moderate- and vigorous-intensity activity Preventative health care 03/07/2025 Assessment & Plan (03/07/2025 10:39 AM EDT): PSA: ordered Colonoscopy: referred Low vitamin D level 03/07/2025 Assessment & Plan (03/07/2025 10:47 AM EDT): On Vitamin D 2,000 daily Atrial fibrillation, chronic 01/31/2025 Assessment & Plan (04/04/2025 11:11 AM EDT): Patient here for a follow up visit Has a Hx of Afib. On beta blockers and anticoagulation. Seen at [facility] 02/19/2025 and they recommended to continue [...] of the ascending aorta measuring 4.20 cm. Holter monitor 03/15/2025 showed: Conclusion: 1. Patient was monitored for total period of 2 days 2. Baseline was atrial fibrillation with average heart of 47 beats per minute 3. Frequent pauses noted greater than 2.5 with a longest pause of 3.8 seconds 4. Frequent slow ventricular response with 72% of the time heart rate below 60 beats per minute 5. No patient reported events Patient has a follow up 04/04/2025 Assessment & Plan (03/07/2025 10:26 AM EDT): Patient here for a New Patient visit, recently moved from [place]20[place] as he was alone in [place] and needed assistance. Has a Hx of Afib. On beta blockers and anticoagulation. Recently seen at [facility] 02/19/2025 and they recommended to continue [...] Congestive heart failure 01/31/2025 Assessment & Plan (04/04/2025 11:09 AM EDT): Most recent ECHO 03/04/2025: Conclusions: [...] measuring 4.20 cm. Under the care of [facility], patient has a follow up visit April 04 2025 Assessment & Plan (03/07/2025 10:57 AM EDT): [...] measuring 4.20 cm. Under the care of [facility], patient has a follow up visit April 04 2025 Essential hypertension 01/31/2025 Assessment & Plan (04/04/2025 11:09 AM EDT): Patient with HTN Blood pressure today: controlled Regimen: hydrochlorothiazide 25 mg po daily and Metoprolol 50 mg po daily Most recent BMP Lab Results Component Value Date NA 137 01/31/2025 K 3.8 01/31/2025 CL 101 01/31/2025 BUN 17 (H) 01/31/2025 CREATININE 0.93 01/31/2025 Within normal limits Plan: Continue current regimen Assessment & Plan (03/07/2025 10:33 AM EDT): [...] 2 diabetes mellitus 01/31/2025 Assessment & Plan (04/04/2025 11:25 AM EDT): Patient here for a follow up regarding his DM Hgb A1c 03/07/2025: 7.9 from 8.7 Current regimen: Jardiance 10 mg po daily. And Metformin XR 500 mg po daily Microalbumin: Lab Results Component Value Date MICROALBUR <5.0 01/31/2025 Eye exam: referred Plan: Increase Metformin to 500 mg 2 tabs po daily Follow up: 3 months Assessment & Plan (03/07/2025 10:53 AM EDT): Patient here for a New Patient visit. Hx of DM Hgb A1c 01/31/2025: 8.7 Current regimen: Jardiance 10 mg po daily Microalbumin: ordered Eye exam: referred Plan: start Metformin XR 500 mg po daily Follow up: 4 weeks Cataracts, bilateral 01/31/2025 Assessment & Plan (03/07/2025 10:31 AM EDT): Under the care of [facility], since last 02/05/2025 they recommended Cataract surgery under general anesthesia once cleared by Cardiology Anemia 01/31/2025 Assessment & Plan (04/04/2025 11:13 AM EDT): Lab Results Component Value Date WBC 8.7 01/31/2025 HGB 11.1 (L) 01/31/2025 HCT 32.8 (L) 01/31/2025 MCV 85.0 01/31/2025 PLT 191 01/31/2025 Normal Iron studies and B12, Folate No records of EGD or Colonoscopy pending GI 05/23/25 at 2:30pm [facility]. Assessment & Plan (03/07/2025 10:39 AM EDT): Lab Results Component Value Date WBC 8.7 01/31/2025 HGB 11.1 (L) 01/31/2025 HCT 32.8 (L) 01/31/2025 MCV 85.0 01/31/2025 PLT 191 01/31/2025 Normal Iron studies and B12, Folate US Abdomen appointment 03/21/25 at 11 AM ([facility]) No records of EGD or Colonoscopy [...] Encounters Date Type Department Care Team Description 04/04/2025 11:00 AM EDT Office Visit [facility] [address] [place] [address] Francisco Khoury MD Type 2 diabetes mellitus without complication, without long-term current use of insulin (CMS/HCC) (Primary Dx); Essential hypertension; Chronic systolic congestive heart failure (CMS/HCC); Atrial fibrillation, chronic (CMS/HCC); Anemia, unspecified type; Calculus of gallbladder without cholecystitis without obstruction; Obesity (BMI 30-39.9); Dietary counseling; Exercise counseling 04/04/2025 Travel 04/03/2025 Telephone [facility] [address], [place] [phone] Francisco Khoury MD CHART PREP 03/30/2025 Refill [facility] [address] [facility] [place] [address] Francisco Khoury MD Tinea pedis of both feet 03/07/2025 10:30 AM EDT Office Visit [facility] [place] [address] Francisco Khoury MD Atrial fibrillation, chronic (CMS/HCC) (Primary Dx); Type 2 diabetes mellitus without complication, without long-term current use of insulin (CMS/[facility]); Cortical age-related cataract of both eyes; Other hyperlipidemia; Essential hypertension; Chronic systolic congestive heart failure (CMS/[facility]); Anemia, unspecified type; Preventative health care; Low vitamin D level; Tinea pedis of both feet 03/07/2025 Telephone [facility] [address] [place] [address] [place] [address] Wanda Yao RN VNA Referral 03/07/2025 Travel 03/06/[address] [address] Symone Reyna MA chart prep 03/01/2025 Refill [facility] W[facility] [address] [place] [phone] Roula Alejandre DO 02/28/2025 Patient Outreach [facility] MED & PEDS [address] [place] [address] Francisco Khoury MD Pre-visit Planning (SDOH will need to be completed in office. ) 02/22/2025 Telephone [facility] [address] [place] [address] [place] [address] Roula Alejandre, RESULTS 02/21/[address] [address] Roula Alejandre DO 02/06/2025 3:30 PM EDT Clinical Support [address] [place] [address] Viri Das RN Impacted cerumen of right ear 02/06/2025 Travel 02/01/[address] [place] [address] Roula Alejandre DO 01/31/2025 2:20 PM EDT Office Visit [facility] [address] [place] [address] Roula Alejandre, Type 2 diabetes mellitus without complication, without [...] Sign Reading Time Taken Comments Blood Pressure 130/72 04/04/2025 11:03 AM EDT Pulse 55 04/04/2025 11:03 AM EDT Temperature 36.3 C (97.3 F) 04/04/2025 11:03 AM EDT Respiratory Rate 20 04/04/2025 11:03 AM EDT Oxygen Saturation 99% 04/04/2025 11:03 AM EDT Inhaled Oxygen Concentration - - Weight 88.5 kg (195 lb) 04/04/2025 11:03 AM EDT Height 170.2 cm (5' 7 ) 04/04/2025 11:03 AM EDT Body Mass Index 30.54 04/04/2025 11:03 AM EDT Plan of Treatment Upcoming Encounters Date Type Department Care Team (Late st Contact Info) Description 04/19/2025 11:00 AM EDT Medication Management [facility] [address] [place] [phone] Gina Peterson, PharmD [address] [place] [address] 07/04/2025 10:15 AM EDT Office Visit [facility] [address] [place] [phone] Francisco Khoury MD [address] [place] [phone] Health Maintenance Due Date Last Done Comments [...] 2023-2 5 season) 2024 Influenza Vaccine (#1) 2025 Diabetes: Hemoglobin A1C 06/07/2025 025, 01/31/2025, [...] Name Priority Date/Time Associated Diagnosis Comments POCT GLUCOSE Routine 04/04/2025 11:08 AM EDT Type 2 diabetes mellitus without complication, without long-term current use of insulin ([facility]) US ABDOMEN COMPLETE Routine 03/21/2025 3 :17 PM EDT Abdominal bloating PSA, SCREEN Routine 03/07/2025 11:08 AM EDT Preventative health care POCT GLYCATED HEMOGLOBIN, TOTAL Routine 03/07/2025 10:37 AM EDT Type 2 diabetes mellitus without complication, without long-term current use of insulin (CMS/HCC) POCT GLUCOSE Routine 03/07/2025 10:34 AM EDT Type 2 diabetes mellitus without complication, without long-term current use of insulin (CMS/HCC) MR BRAIN W AND WO CONTRAST Urgent 02/12/2025 4:17 PM EDT Acute loss of vision, bilateral [place] REMOVAL IMPACTED CERUMEN IRRIGATION/LVG UNILAT Routine 02/06/2025 [...] Last 3 Months Results * (ABNORMAL) POCT Glucose (04/04/2025 11:08 AM EDT) Only the most recent of3 resultswithin the time period is included. Glucose Blood, POC 233(A) 60 - 200 mg/dL QC Media Lot # [id number] Lot# Expiration Date Blood Capillary blood specimen / Unknown 04/04/2025 11:08 AM EDT us Francisco Choi MD POINT OF CARE TEST EN TER/EDIT ORDERABLES Final Result * US Abdomen Complete (03/21/2025 3:17 PM EDT) Anatomical Region Laterality Modality Abdomen Ultrasound 03/21/2025 3:17 PM EDT Narrative 03/21/2025 3:18 PM EDT [place] [address] Ultrasound Report Signed Patient: Peter Armendariz MR#: [id number] 1947 : 1960 Acct:[id number] Age/Sex: 64 / M ADM Date: 03/21/25 Loc: HO.US Attending Dr: Roula Alejandre DO Ordering Physician: Roula Alejandre DO Date of Service: 03/21/25 Procedure(s): US abdomen complete Accession Number(s): [id number] cc: Francisco Jeronimo MD; Roula Alejandre DO CLINICAL HISTORY: intermittent abdominal bloating US abdomen complete. COMPARISON: None provided. Technique: Real time sonographic imaging, including color-flow imaging, was performed by the policy change clerks supervisor. Multiple sales representative girls' apparel static images were saved for review. FINDINGS: The visualized portions of the pancreas appear normal. The liver has normal echotexture. Liver, right lobe size: 17.4 cm, mildly enlarged The gallbladder is normal in size. Nonmobile calcifications measuring up to 4 mm versus small polyps present along the gallbladder body/fundus. There is a negative sonographic Flores's sign. Gallbladder wall: 2-3 mm, normal. Common bile duct: 7 mm, upper limits normal. Right kidney: Cortical medullary differentiation is maintained. Anechoic simple cyst measuring 0.9 x 0.8 x 0.8 cm in the midportion of the right kidney. No hydronephrosis. Right kidney length: 11.1 cm Left kidney: Cortical medullary differentiation is maintained. No calculus or focal parenchymal abnormality identified. No hydronephrosis. Left kidney length: 9.6 cm The spleen has normal echogenicity. Splenic length: 11.5 cm, normal. No free intraperitoneal fluid identified. IMPRESSION: 1. Nonmobile cholelithiasis versus small gallbladder polyps. No evidence for cholecystitis. No specific follow-up recommendations. 2. Mild hepatomegaly. 3. No evidence of renal obstruction. This document has been electronically signed by: Ralph Gaytan MD on 03/21/2025 15:17:02 Dictated By: Ralph Gaytan MD Signed By: <Electronically signed by Ralph Gaytan MD in OV> 03/21/25 1518 DD/ 1517 TD/TT: 03/21/25 1517 [place]: Procedure Note Donotuseinterpreter, Image - 03/21/[address] [address] Ultrasound Report Signed Patient: Peter Armendariz [facility]#: [id number] 1948 : 9Acct:[id number] Age/Sex: 64 / MADM Date: 03/21/25 Loc: HO.US Attending Dr: Roula Alejandre DO Ordering Physician: Roula Alejandre DO Date of Service: 03/21/25 Procedure(s): US abdomen complete Accession Number(s): [id number] cc: Francisco Jeroniom MD; Roula Alejandre DO CLINICAL HISTORY: intermittent abdominal bloating US abdomen complete. COMPARISON: None provided. Technique: Real time sonographic imaging, including color-flow imaging, was performed by the policy change clerks supervisor. Multiple sales representative girls' apparel static images were saved for review. FINDINGS: The visualized portions of the pancreas appear normal. The liver has normal echotexture. Liver, right lobe size: 17.4 cm, mildly enlarged The gallbladder is normal in size. Nonmobile calcifications measuring up to 4 mm versus small polyps present along the gallbladder body/fundus. There is a negative sonographic Flores's sign. Gallbladder wall: 2-3 mm, normal. Common bile duct: 7 mm, upper limits normal. Right kidney: Cortical medullary differentiation is maintained. Anechoic simple cyst measuring 0.9 x 0.8 x 0.8 cm in the midportion of the right kidney. No hydronephrosis. Right kidney length: 11.1 cm Left kidney: Cortical medullary differentiation is maintained. No calculus or focal parenchymal abnormality identified. No hydronephrosis. Left kidney length: 9.6 cm The spleen has normal echogenicity. Splenic length: 11.5 cm, normal. No free intraperitoneal fluid identified. IMPRESSION: 1. Nonmobile cholelithiasis versus small gallbladder polyps. No evidence for cholecystitis. No specific follow-up recommendations. 2. Mild hepatomegaly. 3. No evidence of renal obstruction. This document has been electronically signed by: Ralph Gaytan MD on 03/21/2025 15:17:02 Dictated By: Ralph Gaytan MD Signed By: <Electronically signed by Ralph Gaytan MD in OV> 03/21/25 1518 DD/ 1517 TD/TT: 03/21/25 1517 [place]: us Roula Alejandre DO IMG US PROCEDURES Final Resu lt * PSA, Screen (03/07/2025 11:08 AM EDT) PSA, Total 0.28 <0.05 - 4.0 ng/mL [facility] Comment:PSA methodology: González Hernández i ChemiluminescentMicroparticle Immunoassay (CMIA) Blood Venous blood specimen / Unknown 03/07/2025 11:08 AM EDT 03/07/2025 1:31 PM EDT Francisco Choi MD LAB BLOOD ORDERABLES Final Result [facility] [address] [place] [phone] * (ABNORMAL) POCT HGB A1C (03/07/2025 10:37 AM EDT) Only the most recent of2 resultswithin the time period is included. Hemoglobin A1C 7.9(A) 4.0 - 6.0 % QC Media Lot # [id number] Lot# Expiration Date Blood 03/07/2025 10:3 7 AM EDT Francisco Choi MD POINT OF CARE TEST EN TER/EDIT ORDERABLES Final Result * Mr Brain w/ and w/o Contrast (02/12/2025 4:17 PM EDT) Anatomical Region Laterality Modality Brain Magnetic Resonan ce 02/12/2025 4:17 PM EDT Narrative 02/13/2025 8:22 AM EDT [address] [address] Magnetic Resonance Report Signed Patient: Peter Armendariz MR#: [id number] 1947 : 1960 Acct:[id number] Age/Sex: 64 / M ADM Date: 02/12/25 Loc: HO.MRI Attending Dr: Roula Alejandre DO Ordering Physician: Roula Alejandre DO Date of Service: 02/12/25 Procedure(s): MR head/brain wo/w con Accession Number(s): [id number] cc: Francisco Jeronimo MD; Roula Alejandre DO [...] 02/13/25 0819 DD/ 1617 TD/TT: 02/12/25 1638 [place]: Procedure Note Tatyinterpreter, Image - 02/18/2025 [place] [address] Magnetic Resonance Report Signed Patient: Peter Armendariz MMR#: [id number] [birth year] : 9Acct:[id number] Age/Sex: 64 / MADM Date: 02/12/25 Loc: HO.MRI Attending Dr: Roula Alejandre DO Ordering Physician: Roula Alejandre DO Date of Service: 02/12/25 Procedure(s): MR head/brain wo/w con Accession Number(s): [id number] cc: Francisco Jeronimo MD; Roula Alejandre DO [...] 02/13/25 0819 DD/ 1617 TD/TT: 02/12/25 1638 [place]: Roula Alejandre DO IMG MRI PROCEDURES Edited Re sult - Final * MD REMOVAL IMPACTED CERUMEN IRRIGATION/LVG UNILAT (02/06/2025 3:29 [...] Procedure completion: Tolerated well, no immediate complications us Anisa Parmar MD IN CLINIC/BEDSIDE ORDERABL ES Final Result * (ABNORMAL) Vitamin D, 25-Hydroxy, Total, Immunoassay (01/31/2025 2:22 PM EDT) Vitamin D 25-OH Total 21.9(L) >30 ng/mL [facility] Comment: Health Based Reference Values*< 20 ng/mL [id number] ng/mL Insufficient> 30 ng/mL Sufficient*David DURHAM. N [...] DO LAB BLOOD ORDERABLES Final R esult [facility] [address] [place] [address] [phone] * Vitamin B12 (Cobalamin) and Folate Panel, Serum (01/31/2025 2:22 PM EDT) Vitamin B12 376 200 - 900 pg/mL [facility] Comment:NORMAL 200-900 PG/ML INDETERMINATE 160-199 PG/ML DEFICIENT < 160 PG/ML Folate 17.1 > or = 4.0 ng/mL [facility] Comment:Reference Values:> o r = 4.0 ng/mL< 4.0 ng/mL suggests folate deficiency Methotrexate, aminopterin and folinic acid(leucovorin) are chemotherapeutic agents whose molecularstructures are similar to folate; therefore, the Architectfolate assay cannot be used for patients using these drugs. Blood 01/31/2025 2:22 PM EDT 01/31/2025 4:01 PM EDT Roula Alejandre LAB BLOOD ORDERABLES Final R esult Performing Organization Address [facility] Co de Phone Number [facility] [address] [place] [phone] * Albumin, Random Urine W/Creatinine (01/31/2025 2:22 PM EDT) Creatinine, Urine 58.38 mg/dL [facility] Microalbumin Urine <5.0 mg/L [facility] Microalbum Creatinine Ratio Ur TNP <30 ug/mg cr [facility] Comment:Unable to calculate albumin/creatinine ratio due to lowmicroalbumin or creatinine result. Urine (Urine, Random) 01/31/2025 2:22 PM EDT 01/31/2025 4:03 PM EDT Roula Alejandre LAB URINE ORDERABLES Final R esult Performing Organization Address [facility]/ZIP Co de Phone Number [facility] [address] [place] [phone] * (ABNORMAL) CBC auto differential (01/31/2025 2:22 PM EDT) White Blood Count 8.7 4.8 - 10.8 X10*3/uL [facility] Red Blood Count 3.86(L) 4.60 - 5.80 X10*6/uL [facility] Hemoglobin 11.1(L) 14.0 - 18.0 g/dl [facility] Hematocrit 32.8(L) 42.0 - 52.0 % [facility] Mean Corpuscular Volume 85.0 80.0 - 98.0 fL [facility] Mean Corpuscular Hemoglobin 28.8 27.0 - 33.0 pg [facility] Mean Corpuscular HGB Conc 33.8 31.0 - 36.0 g/dl [facility] Red Cell Distribution Width 13.5 11.0 - 16.0 % [facility] Platelet Count 191 160 - 400 X10*3/uL [facility] Mean Platelet Volume 12.9(H) 9.4 - 12.4 fL [facility] Neutrophils Percent Auto 50.1 45 - 73 % [facility] Imm Gran Pct Auto 0.2 0.0 - 0.4 % [facility] Lymphocytes Percent Auto 34.9 20 - 40 % [facility] Monocytes Percent Auto 10.4 2 - 11 % [facility] Eosinophils Percent Auto 3.9 0 - 4 % [facility] Basophils Percent Auto 0.5 0 - 2 % [facility] NRBC Pct Auto 0.0 0.0 - 0.2 /100WBC [facility] Neutrophils Absolute Auto 4.4 2.0 - 8.3 x10*3/uL [facility] Imm Gran Abs Auto 0.02 0.00 - 0.03 X10*3/uL [facility] Lymphocytes Absolute Auto 3.1 1.2 - 4.9 X10*3/uL [facility] Monocytes Absolute Auto 0.9 0.1 - 1.2 X10*3/uL [facility] Eosinophils Absolute Auto 0.3 0.0 - 0.4 X10*3/uL [facility] Basophils Absolute Auto 0.0 0.0 - 0.2 X10*3/uL [facility] NRBC Abs Auto 0.000 0.0 - 0.012 X10*3/uL [facility] Blood Venous blood specimen / Unknown 01/31/2025 2:22 PM EDT 01/31/2025 4:01 PM EDT [place] LAB BLOOD ORDERABLES Final R esult Performing Organization Address City/[facility]/ZIP Co de Phone Number [facility] [address] [place] [address] [phone] * Hepatitis C Antibody with Reflex to HCV, RNA, Quantitative, Real-Time PCR (01/31/2025 2:22 PM EDT) Hepatitis C Antibody Nonreactive Nonreactive [facility] Comment:Antibodies to HCV no t detected; does not exclude early acuteHCV infection. Blood Venous blood specimen / Unknown 01/31/2025 2:22 PM EDT 01/31/2025 4:01 PM EDT Roula Alejandre LAB BLOOD ORDERABLES Final R esult Performing Organization Address City/[facility] Co de Phone Number [facility] [address] [place] [phone] * Iron And Total Iron Binding Capacity (01/31/2025 2:22 PM EDT) Iron 109 45 - 160 mcg/dL [facility] Total Iron Binding Capacity 270 228 - 428 mcg/dL [facility] Percent Iron Saturation 40 15 - 50 % [facility] Unsaturated Iron Binding 161 ug/dL [facility] Blood Venous blood specimen / Unknown 01/31/2025 2:22 PM EDT 01/31/2025 4:01 PM EDT [place] LAB BLOOD ORDERABLES Final R esult Performing Organization Address City/[facility]/ZIP Co de Phone Number [facility] [address] [place] [phone] * Hepatitis A Antibody, Total (01/31/2025 2:22 PM EDT) Hepatitis A Antibody IgG REACTIVE Nonreactive [facility] Comment:The presence of IgG anti-HAV implies past HAV infection(recent or distant) or vaccination against HAV. Blood Venous blood specimen / Unknown 01/31/2025 2:22 PM EDT 01/31/2025 4:01 PM EDT Roula Alejandre DO LAB BLOOD ORDERABLES Final R esult [facility] [address] [place] [phone] * Chlamydia/N. Gonorrhoeae RNA, TMA, Urogenitial (01/31/2025 2:22 PM EDT) [facility] CT PCR NOT DETECTED Not Detect. [facility] Comment:A not detected test [...] psychologicalconsequences. NG PCR NOT DETECTED Not Detect. [facility] Comment:A not detected test [...] PM EDT 01/31/2025 4:03 PM EDT Narrative [facility] - 01/31/2025 6:29 PM EDT Urine us Roula Alejandre DO LAB MICROBIOLOGY - GENERAL O RDERABLES Final Result Performing Organization Address [facility] Co de Phone Number [facility] [address] [place] [phone] * Hepatitis B surface antigen, EIA (01/31/2025 2:22 PM EDT) Hepatitis B Surface Ag Negative Negative [facility] Blood Venous blood specimen / Unknown 01/31/2025 2:22 PM EDT 01/31/2025 4:01 PM EDT us Roula Alejandre DO LAB BLOOD ORDERABLES Final R esult Performing Organization Address [facility] Co de Phone Number [facility] [address] [place] [phone] * Hepatitis B Core Antibody, Total (01/31/2025 2:22 PM EDT) Hepatitis B Core Antibody Nonreactive Nonreactive [facility] Blood Venous blood specimen / Unknown 01/31/2025 2:22 PM EDT 01/31/2025 4:01 PM EDT us Roula Alejandre DO LAB BLOOD ORDERABLES Final R esult Performing Organization Address [facility] Co de Phone Number [facility] [address] [place] [phone] * RPR (Monitor) with Reflex to??Titer (01/31/2025 2:22 PM EDT) RPR (Monitor) w/Refl Titer NON-REACTI VE NON-REACT SAM [facility] Comment:THIS TEST WAS PERFOR MED AT:[facility] [place] [phone] TOVAR MD Rapid Plasma Reagin Ab Titer TNP [facility] Blood Venous blood specimen / Unknown 01/31/2025 2:22 PM EDT 01/31/2025 4:01 PM EDT Roula Alejandre [employer] LAB BLOOD ORDERABLES Final R esult Performing Organization Address [facility]/ZIP Co de Phone Number [facility] [address] [place] [phone] * HIV-1/2 Antigen and Antibodies, Fourth Generation, with Reflexes (01/31/2025 2:22 PM EDT) HIV AB/AG Nonreactive Nonreactive [facility] Comment:HIV-1 p24 Ag and/or HIV-1/HIV-2 Ab not detected.A test result that is nonreactive does not exclude thepossibility of exposure to or infection with HIV-1 and/orHIV-2. Nonreactive results in this assay for individualswith prior exposure to HIV-1 and/or HIV-2 may be due toantigen and antibody levels that are below the limit ofdetection of this assay.The [employer] HIV Ag/Ab Combo assay result andsupplemental assay results should be interpreted inconjunction with the patient's clinical presentation,history and other laboratory results. If the results areinconsistent with clinical evidence, additional testing issuggested to confirm the result. Blood Venous blood specimen / Unknown 01/31/2025 2:22 PM EDT 01/31/2025 4:01 PM EDT us Roulayessy Alejandre DO LAB BLOOD ORDERABLES Final R esult [facility] [address] [place] [phone] * Hepatitis B Surface Antibody, Qualitative (01/31/2025 2:22 PM EDT) ~Hepatitis B Surface Antibody NONREACTIVE Nonreactive [facility] Comment:Nonreactive: < 8.00 mIU/mL Blood Venous blood specimen / Unknown 01/31/2025 2:22 PM EDT 01/31/2025 4:01 PM EDT Roula Alejandre DO LAB BLOOD ORDERABLES Final R esult Performing Organization Address [facility] Co de Phone Number [facility] [address] [place] [phone] * TSH (01/31/2025 2:22 PM EDT) Thyroid Stimulating Hormone 1.03 0.32 - 4.0 uIU/mL [facility] Comment:TSH 3rd Generation ( [employer]) Blood Venous blood specimen / Unknown 01/31/2025 2:22 PM EDT 01/31/2025 4:01 PM EDT Roula Alejandre DO LAB BLOOD ORDERABLES Final R esult Performing Organization Address [facility] Co de Phone Number [facility] [address] [place] [phone] * T4, Free (01/31/2025 2:22 PM EDT) Free T4 (Free Thyroxine) 1.00 0.71 - 1.85 ng/dL [facility] Blood Venous blood specimen / Unknown 01/31/2025 2:22 PM EDT 01/31/2025 4:01 PM EDT Roula Alejandre DO LAB BLOOD ORDERABLES Final R esult Performing Organization Address City/[facility]/ZIP Co de Phone Number [facility] [address] [place] [phone] * (ABNORMAL) Hemoglobin A1c (01/31/2025 2:22 PM EDT) Hemoglobin A1c 8.7(H) <6.0 % [facility] Comment:Hemoglobin A1C Refer ence Range Adults: 4.8 - 6.0 % Non diabetic: < 6.0 % Goal: < 7.0 %Additional Action Suggested: > 8.0 %Note: Hemoglobin A1c results are invalid for patients with abnormal amounts of HbF. Blood transfusions may impact the HbA1c concentration in the patient sample. Estimated Average Glucose 203 mg/dL [facility] Comment:eAG = Estimated ave rage glucose which is %A1C expressed asaverage glucose, using the formula of the M9Z-LmazygqZlmhqeh Glucose study (ADAG), Diabetes Care, Vol.31,#8,2007 Blood Venous blood specimen / Unknown 01/31/2025 2:22 PM EDT 01/31/2025 4:01 PM EDT Roula Alejandre DO LAB BLOOD ORDERABLES Final R esult Performing Organization Address [facility] Co de Phone Number [facility] [address] [place] [phone] * Ferritin (01/31/2025 2:22 PM EDT) Ferritin 109 20 - 250 ng/mL [facility] Blood Venous blood specimen / Unknown 01/31/2025 2:22 PM EDT 01/31/2025 4:01 PM EDT Roula Alejandre LAB BLOOD ORDERABLES Final R esult Performing Organization Address [facility] Co de Phone Number [facility] [address] [place] [phone] * (ABNORMAL) Hepatic Function Panel (01/31/2025 2:22 PM EDT) Bilirubin, Total 0.5 0.0 - 1.0 mg/dL [facility] Bilirubin, Direct 0.2 0.0 - 0.5 mg/dL [facility] Aspartate Amino Transferase 32 5 - 37 U/L [facility] Alanine Aminotransferase 36 0 - 40 U/L [facility] Total Protein 8.8(H) 6.5 - 8.0 g/dL [facility] Albumin Level 4.1 3.5 - 5.0 g/dL [facility] Alkaline Phosphatase 216(H) 39 - 117 U/L [facility] Blood Venous blood specimen / Unknown 01/31/2025 2:22 PM EDT 01/31/2025 4:01 PM EDT us Roula Alejandre DO LAB BLOOD ORDERABLES Final R esult [facility] [address] [place] [phone] * (ABNORMAL) Lipid Panel, Standard (01/31/2025 2:22 PM EDT) Pathologist [facility] Triglycerides 167(H) <150 mg/dL [facility] Comment:Desirable Triglyceri de: less than 150 mg/dLBorderline High Triglyceride 150-199 mg/dLHigh Triglyceride: 200-499 mg/dLVery High Triglyceride: greater than or equal to 5OO mg/dL Cholesterol 154 <200 mg/dL [facility] Comment:Desirable Cholestero l: less than 200 mg/dLBorderline High Cholesterol: 200-239 mg/dLHigh Cholesterol: greater than 239 mg/dL LDL Cholesterol Calculated 81 <100 mg/dL [facility] Comment:Desirable LDL: less than 100 mg/dLNear Optimal/Above Optimal LDL: 110- 129 mg/dLBorderline High LDL: 130-159 mg/dLHigh LDL: 160-189 mg/dLVery High LDL: greater than or equal to 190 mg/dL HDL Cholesterol 40(L) >40 mg/dL [facility] Comment:Desirable HDL: great er than 40 mg/dL Note: This HDL assay may give artificially low results in patients with liver disease. Blood Venous blood specimen / Unknown 01/31/2025 2:22 PM EDT 01/31/2025 4:01 PM EDT us Roula Alejandre DO LAB BLOOD ORDERABLES Final R esult Performing Organization Address City/[facility]/ZIP Co de Phone Number [facility] [address] [place] [phone] * (ABNORMAL) Basic Metabolic Panel (01/31/2025 2:22 PM EDT) Sodium 137 135 - 145 mmol/L [facility] Potassium 3.8 3.3 - 5.1 mmol/L [facility] Chloride 101 96 - 108 mmol/L [facility] Carbon Dioxide 26 22 - 29 mmol/L [facility] Anion Gap 14 12 - 20 [facility] Urea Nitrogen (BUN) 17(H) 9 - 16 mg/dL [facility] Creatinine, Serum 0.93 0.5 - 1.4 mg/dL [facility] Estimated Glomerular Filt Rate >60 [facility] Comment:Chronic Kidney Disea se: Estimated GFR < 60 mL/min/1.43s5Nlctvs Kidney Disease: Estimated GFR < 15 mL/min/1.73m2 Glucose 214(H) 60 - 115 mg/dL [facility] Calcium 9.9 8.4 - 10.2 mg/dL [facility] Blood Venous blood specimen / Unknown 01/31/2025 2:22 PM EDT 01/31/2025 4:01 PM EDT us Roula Alejandre DO LAB BLOOD ORDERABLES Final R esult Performing Organization Address City/[facility]/ZIP Co de Phone Number [facility] [address] [place] [phone] from Last 3 Months Insurance [facility] STANDARD Care Teams Certified [employer] Engineer Relationship Specialty Start Date End Date Francisco Khoury MD [address] [place] [address] PCP - General Internal Medicine 03/07/25
[2025-04-04 13:45] VITALS: BP 110/62; PULSE 60; BMI 31.3
--- NOTE | 2025-04-04 13:45 | A.OFFVIS_ITS ---
Vital Signs 04/04/25 13:45 Height 5 ft 6 in Weight 194 lb 0.108 oz BMI 31.3 BP 110/62 Blood Pressure Location Lt brachial Position Sitting Pulse 60 Pulse Source Pulse Oximeter Intake Visit Reasons: 6 wk f/up echo/ holter Commercial Drone Software Developer Required: Yes Commercial Drone Software Developer Language: Ship Pilot Name: [email or web address] Accompanied by: Daughter Allergies No Known Allergies Allergy (Verified 11/20/24 10:23) Medication List - Last Reconciled 04/04/25 by Nathanael Gill MD apixaban (Eliquis) 5 mg PO BID ascorbic acid (vitamin C) 250 mg PO DAILY atorvastatin 40 mg PO BEDTIME cetirizine 10 mg PO DAILY PRN cholecalciferol (vitamin D3) 50 mcg PO DAILY empagliflozin (Jardiance) 10 mg PO DAILY ferrous sulfate 325 mg PO BID folic acid 1 mg PO DAILY hydrochlorothiazide 25 mg PO DAILY metformin 500 mg PO DAILY metoprolol succinate ER 25 mg (1/2 x 50 mg) PO DAILY omeprazole 20 mg PO DAILY simethicone (Gas Relief (simethicone)) 125 mg PO BID-QID PRN HPI Comments Details: Peter returns for follow-up regarding atrial fibrillation. History of atrial fibrillation of unknown chronicity. He has moved from [place] few months back. He cannot see. I am not clear if it is just cataract or if there are other visual issues. Apparently, he needs eye surgery coming up in the next few months. Again not clear if it is just cataract surgery under local anesthesia or something more involved. Many comorbidities including diabetes, dyslipidemia. There is also mention of CAD/congestive heart failure in the history but there is no other information available to see the extent of this. He however denies any clear-cut angina or shortness of breath but it does not seem that he does much anyway. He is on Eliquis. No bleeding concerns. There is excessive alcohol use history in the past but not recently. Family is here for the appointment and they want him to be cleared for eye surgery but we do not know the details of what is going to get done. [facility] Medical History (Updated 04/04/25 @ 14:17 by Nathanael Gill MD) Ascending aorta dilatation Anemia History of alcohol use disorder Hyperlipidemia Type 2 diabetes mellitus Bilateral cataracts Coronary artery disease Atrial fibrillation CHF (congestive heart failure) Family History Brother Cancer Mother Diabetes Father Cancer Social History Alcohol intake: former Patient Tobacco Use Status: Never used Tobacco Review of Systems Const Denies chills, Denies fatigue, Denies fever(s), Denies frequent falls, Denies weakness, Denies weight gain and Denies weight loss ENT Denies dizziness Card Denies chest pain, Denies leg edema, Denies lightheadedness, Denies palpitations, Denies dyspnea and Denies dyspnea on exertion Resp Denies cough, Denies dyspnea and Denies dyspnea on exertion GI Denies hematochezia Musc Denies abnormal gait, Denies muscle weakness, Denies numbness, Denies radiating pain into limb and Denies tingling Neuro Denies abnormal gait, Denies dizziness, Denies frequent falls, Denies numbness, Denies tingling and Denies weakness Endo Denies fatigue and Denies palpitations Physical Exam Vital Signs: Last Vital Signs Pulse 60 04/04/25 13:45 BP 110/62 04/04/25 13:45 BMI result Body Mass Index 31.3 Const General: comfortable and no acute distress Orientation/consciousness: patient oriented x3 HEENT Other: Unremarkable Head: Yes normal to inspection Neck Neck: Yes normal visual inspection Chest Chest palpation & inspection: normal inspection of the chest Resp Auscultation: clear to auscultation bilaterally Cardio Palpation: normal PMI Heart sounds: S1 normal heart sound present, S2 normal heart sound present, no gallops, Murmur heart sound present diastolic II/ and at the right sternal border and systolic II/ and at the right sternal border and no rubs GI Palpation (GI): Soft to palpation Back/Spine/Pelvis Other: unremarkable Skin General skin exam: no rashes or lesions noted Neuro General: patient oriented x3 Extrem General: Yes normal to inspection Psych Mental Status: mental status grossly normal Assessment & Plan Assessment & Plan (1) Persistent atrial fibrillation: Code(s): I48.19 - Other persistent atrial fibrillation Category: Medical (2) Cardiomyopathy: Code(s): I42.9 - Cardiomyopathy, unspecified Category: Medical (3) Non-rheumatic aortic stenosis: Code(s): I35.0 - Nonrheumatic aortic (valve) stenosis Category: Medical (4) Rheumatic mitral stenosis: Code(s): I05.0 - Rheumatic mitral stenosis Category: Medical (5) Pulmonary hypertension: Code(s): I27.20 - Pulmonary hypertension, unspecified Category: Medical (6) Ascending aorta dilatation: Code(s): I77.810 - Thoracic aortic ectasia Category: Medical Plan In the echocardiogram, LVEF is 41%. Mid anteroseptal/inferoseptal hypokinesis. Moderate aortic stenosis. Suspected rheumatic mitral valve with severe calcification and severe stenosis. Smygwfxq-rk-bnqyqi pulmonary hypertension. RVSP 60 mm Hg. Ascending aortic size 4.2 cm. Overall, atrial fibrillation of unknown duration; stated CAD/CHF in history, unknown coronary anatomy. Currently, he is denying any active symptoms. We discussed about just managing conservatively but considering the extent of echocardiographic findings, a diagnostic catheterization would also be very reasonable. This is in light of the fact that they would like him to go for eye surgery for blindness. Again not entirely clear what is the extent of surgery involved for his eyes. I had a long conversation with the family and they would like everything done for him and hence catheterization is being arranged. We will see him back once this is completed. Discussion Notes During the discussion, I explained the importance of assessing the heart's condition before proceeding with eye surgery, especially if general anesthesia is required. I emphasized the need for an angiogram to evaluate the heart's function and coronary arteries. We also discussed the necessity of coordinating with the nitric acid plant operator to ensure the surgical plan is safe given the patient's cardiac status. Patient was informed and verbally consented to the use of an ambient scribe for clinic note documentation during this visit. Orders: Orders Cardiac Cath LT Diagnostic Today I25.10 - Atherosclerotic heart disease of [place] coronary artery without angina pectoris, I34.2 - Nonrheumatic mitral (valve) stenosis Cardiac Cath RT Diagnostic Today I27.20 - Pulmonary hypertension, unspecified, I34.2 - Nonrheumatic mitral (valve) stenosis Basic Metabolic Panel Today I34.2 - Nonrheumatic mitral (valve) stenosis Complete Blood Count no Diff Today I34.2 - Nonrheumatic mitral (valve) stenosis Prothrombin Time INR Today I25.10 - Atherosclerotic heart disease of [place] coronary artery without angina pectoris, I34.2 - Nonrheumatic mitral (valve) stenosis Coding Level of Care Code Est Pt Level 5 (40273) Complex EM visit Add On G2211 Diagnoses Persistent atrial fibrillation I48.19 Cardiomyopathy I42.9 Non-rheumatic aortic stenosis I35.0 Rheumatic mitral stenosis I05.0 Pulmonary hypertension I27.20 Ascending aorta dilatation I77.810
== END 2025-04-04 14:20 | disposition home or self-care (01) ==
LOC: HO.HCS 12:47
PROVIDERS: PCP Internal Medicine; Visit Provider Internal Medicine
DX: I48.19 Other persistent atrial fibrillation (principal); I42.9 Cardiomyopathy, unspecified; I35.0 Nonrheumatic aortic (valve) stenosis; I05.0 Rheumatic mitral stenosis; I27.20 Pulmonary hypertension, unspecified; I77.810 Thoracic aortic ectasia
CPT/HCPCS: 99215

== ENCOUNTER → 2025-05-02 23:59 | Outpatient (BNV) | payer MEDICAID, SELFPAY | PROVIDERS: PCP Internal Medicine; Visit Provider Internal Medicine Cardiovascular Disease | DX: I34.2 Nonrheumatic mitral (valve) stenosis (principal); I35.0 Nonrheumatic aortic (valve) stenosis; Z01.810 Encounter for preprocedural cardiovascular examination | CPT/HCPCS: 93460; 99152 ==

== ENCOUNTER 2025-05-13 09:47 | Outpatient (AMB) | payer MEDICAID, SELFPAY ==
--- NOTE | 2025-05-13 09:49 | A.OFFVIS_ITS ---
Vital Signs 05/13/25 09:50 Height 5 ft 6 in Weight 196 lb 3.382 oz BMI 31.7 BP 120/60 Blood Pressure Location Lt brachial Position Sitting Pulse 61 Pulse Source Pulse Oximeter Intake Visit Reasons: 2 wk follow up s/p cardiac cath Gambreler Helper Required: Yes Gambreler Helper Name: C Accompanied by: Nephew or Niece Allergies No Known Allergies Allergy (Verified 11/20/24 10:23) Medication List - Last Reconciled 05/13/25 by Nathanael Gill MD apixaban (Eliquis) 5 mg PO BID ascorbic acid (vitamin C) 250 mg PO DAILY atorvastatin 40 mg PO BEDTIME cetirizine 10 mg PO DAILY PRN cholecalciferol (vitamin D3) 50 mcg PO DAILY empagliflozin (Jardiance) 10 mg PO DAILY ferrous sulfate 325 mg PO BID folic acid 1 mg PO DAILY hydrochlorothiazide 25 mg PO DAILY metformin 500 mg PO DAILY metoprolol succinate ER 25 mg (1/2 x 50 mg) PO DAILY omeprazole 20 mg PO DAILY simethicone (Gas Relief (simethicone)) 125 mg PO BID-QID PRN HPI Comments Details: ePter returns for follow-up after recent cardiac catheterization. He has moved here from [place] few months back. History of diabetes and dyslipidemia. He underwent a recent echocardiogram and that actually showed severe mitral stenosis with pulmonary hypertension. There was moderate aortic stenosis. That led to cardiac catheterization confirming the diagnosis of mitral stenosis but there was no significant coronary disease. With regard to his vision, apparently he needs surgery under general anesthesia for complex cataract. However, not performed yet due to cardiac issues. Within limits of his activity, no overt cardiac symptoms but it does not look like he is so active. He does have longstanding atrial fibrillation on anticoagulation. [facility] Medical History (Updated 05/13/25 @ 11:20 by Nathanael Gill MD) Ascending aorta dilatation Anemia History of alcohol use disorder Hyperlipidemia Type 2 diabetes mellitus Bilateral cataracts Coronary artery disease Atrial fibrillation CHF (congestive heart failure) Family History Brother Cancer Mother Diabetes Father Cancer Social History Alcohol intake: former Patient Tobacco Use Status: Never used Tobacco Review of Systems Const Denies weakness ENT Denies dizziness Card Denies chest pain, Denies chest pain with activity, Denies syncope, Denies rapid heart rate, Denies pedal edema, Denies edema, Denies leg edema, Denies lightheadedness, Denies palpitations, Denies dyspnea, Denies dyspnea on exertion and Denies orthopnea Resp Denies cough, Denies dyspnea and Denies dyspnea on exertion GI Denies hematochezia and Denies change in stool character Musc Denies abnormal gait, Denies muscle cramps, Denies muscle weakness, Denies numbness, Denies radiating pain into limb and Denies tingling Neuro Denies abnormal gait, Denies dizziness, Denies syncope, Denies numbness, Denies tingling and Denies weakness Endo Denies palpitations Physical Exam Vital Signs: Last Vital Signs Pulse 61 05/13/25 09:50 BP 120/60 05/13/25 09:50 BMI result Body Mass Index 31.7 Const General: comfortable and no acute distress Orientation/consciousness: patient oriented x3 HEENT Other: Unremarkable Head: Yes normal to inspection Neck Neck: Yes normal visual inspection Chest Chest palpation & inspection: normal inspection of the chest Resp Auscultation: clear to auscultation bilaterally Cardio Palpation: normal PMI Heart sounds: S1 normal heart sound present, S2 normal heart sound present, no gallops, Murmur heart sound present diastolic II/ and at the right sternal border and systolic II/ and at the right sternal border and no rubs GI Palpation (GI): Soft to palpation Back/Spine/Pelvis Other: unremarkable Skin General skin exam: no rashes or lesions noted Neuro General: patient oriented x3 Extrem General: Yes normal to inspection Psych Mental Status: mental status grossly normal Assessment & Plan Assessment & Plan (1) Persistent atrial fibrillation: Code(s): I48.19 - Other persistent atrial fibrillation Category: Medical (2) Cardiomyopathy: Code(s): I42.9 - Cardiomyopathy, unspecified Category: Medical (3) Non-rheumatic aortic stenosis: Code(s): I35.0 - Nonrheumatic aortic (valve) stenosis Category: Medical (4) Rheumatic mitral stenosis: Code(s): I05.0 - Rheumatic mitral stenosis Category: Medical (5) Pulmonary hypertension: Code(s): I27.20 - Pulmonary hypertension, unspecified Category: Medical (6) Ascending aorta dilatation: Code(s): I77.810 - Thoracic aortic ectasia Category: Medical (7) Preoperative cardiovascular examination: Code(s): Z01.810 - Encounter for preprocedural cardiovascular examination Category: Medical Plan Cardiac studies summarized as below. EKG with atrial fibrillation at a rate of 65/Min. In the echocardiogram, LVEF is 41%. Mid anteroseptal/inferoseptal hypokinesis. Moderate aortic stenosis. Suspected rheumatic mitral valve with severe calcification and severe stenosis. Dybdmvlf-gz-syqdyb pulmonary hypertension. RVSP 60 mm Hg. Ascending aortic size 4.2 cm. In the cardiac catheterization, minimal luminal irregularities but nothing hemodynamically significant. Severe rheumatic mitral stenosis with severe pulmonary hypertension. Overall, severe rheumatic mitral stenosis, moderate aortic stenosis, pulmonary hypertension, chronic atrial fibrillation, blindness from complex cataract requiring surgery under general anesthesia. Clinically, he has got no overt symptoms but considering the fact that he has got pulmonary hypertension as well as atrial fibrillation it would be reasonable to evaluate him for any percutaneous mitral valve interventions if feasible or not. If not, then referred to Cardiac surgery for evaluation. Would hold off on eye surgery under general anesthesia at this time till cardiac evaluation is completed. Discussed with patient's family using recruitment director. Discussion Notes I discussed with the patient the findings from the recent procedure, emphasizing that while there are no coronary blockages, the aortic and mitral valves are not functioning properly. I explained the necessity of addressing these valve issues before any ophthalmological interventions can be considered, as the eye doctor requires the cardiac condition to be stable first. I outlined the referral process to valve specialists and the potential for either minimally invasive or surgical interventions, depending on the evaluation outcomes. Patient was informed and verbally consented to the use of an ambient scribe for clinic note documentation during this visit. Orders: Referrals Cardiology Referral I05.0 - Rheumatic mitral stenosis Patient Instructions: - Attend the appointment with the valve specialists at [facility] as scheduled. - Follow up with the pulp grinder and blender after cardiac issues are addressed. - Monitor for any new symptoms such as chest pain or shortness of breath and report them immediately. Coding Level of Care Code Est Pt Level 4 (00463) Complex EM visit Add On G2211 Diagnoses Persistent atrial fibrillation I48.19 Cardiomyopathy I42.9 Non-rheumatic aortic stenosis I35.0 Rheumatic mitral stenosis I05.0 Pulmonary hypertension I27.20 Ascending aorta dilatation I77.810 Preoperative cardiovascular examination Z01.810
[2025-05-13 09:50] VITALS: BP 120/60; PULSE 61; BMI 31.7
--- OUTSIDE RECORDS SUMMARY | 2025-05-13 10:19 | XMS_ITS | Clinical Summary ---
Author Organization [employer] Address [address] [facility] [address] [place] [address] Care Team Providers Care Ux Engineer Name Role Phone Francisco Khoury MD Primary Care Provide r Allergies No known active allergies Medications FREESTYLE LITE test strip Use to test blood sugar 2 times daily 100 each 02/01/20 25 Active Lancets misc Use to test blood [...] day. 30 tablet 3 02/01/20 25 Active hydroCHLOROthi azide (HYDRODiuril) 25 MG tablet Take 1 tablet (25 mg) by mouth Once per day. 30 tablet 3 02/01/20 25 Active apixaban (Eliquis) 5 MG tablet Take 1 tablet (5 mg) by mouth 2 times daily. 60 tablet 3 02/01/20 25 Active ferrous sulfate (Fe Tabs) 325 (65 Fe) MG EC tablet Take 1 tablet (325 mg) by mouth with breakfast. Do not crush, chew, or split. 30 tablet 3 02/01/20 25 026 Active folic acid (Folvite) 1 MG tablet Take 1 tablet (1 mg) by mouth Once per day. 30 tablet 3 02/01/20 25 Active metoprolol succinate XL (Toprol XL) 50 MG 24 hr tablet Take 1 tablet (50 mg) by mouth Once per day. Do not crush or chew. 30 tablet 3 02/01/20 026 Active cholecalcifero l (Vitamin D-3) 50 MCG (1999 UT) capsule Take 1 capsule (50 mcg) by mouth Once per day. 90 capsule 02/02/20 Active fluticasone (Flonase) 50 MCG/ACT nasal spray Administer 2 sprays into each nostril Once per day. Shake gently. Before first use, prime pump. After use, clean tip and replace cap. 16 g 02/22/20 026 Active cetirizine (ZyrTEC) 10 MG tablet Take 1 tablet (10 mg) by mouth Once per day. 90 tablet 02/22/20 026 Active Gas Relief Extra Strength 125 MG chewable tablet CHEW 1 TABLET BY MOUTH EVERY 6 HOURS NEEDED FOR GAS 30 tablet 1 03/05/20 25 Active clotrimazole (Lotrimin) 1 % creamIndicatio ns:Tinea pedis of both feet APPLY TO THE AFFECTED AREA(S) TWICE DAILY FOR 28 DAYS 30 g 04/02/20 25 Active metFORMIN XR (Glucophage-XR ) 500 MG 24 hr tabletIndicati ons:Type 2 diabetes mellitus without complication, without long-term current use of insulin ([facility]) Take 2 tablets (1,000 mg) by mouth with evening meal. Do not crush, chew, or split. 30 tablet 3 04/04/20 25 Active omeprazole (PriLOSEC) [address] capsule TAKE 1 CAPSULE BY MOUTH DAILY BEFORE BREAKFAST. DO NOT BREAK, CRUSH, DISSOLVE OR CHEW 90 capsule 04/25/20 25 Active atorvastatin (Lipitor) 40 MG tablet TAKE 1 TABLET BY MOUTH DAILY 90 tablet 04/25/20 25 Active Ascorbic Acid (vitamin C) 250 MG tablet TAKE 1 TABLET BY MOUTH DAILY 90 tablet 1 04/25/20 25 Active atorvastatin (Lipitor) 40 MG tablet Take 1 tablet (40 mg) by mouth Once per day. 30 tablet 3 02/01/20 25 025 Discontinued omeprazole OTC (PriLOSEC OTC) 20 MG EC tablet Take 1 tablet (20 mg) by mouth before breakfast. Do not crush, chew, or split. 30 tablet 3 02/01/20 25 025 Discontinued Ascorbic Acid (vitamin C) 250 MG tablet Take 1 tablet (250 mg) by mouth Once per day. 30 tablet 3 02/01/20 025 Discontinued Active Problems Problem Noted Date [...] On beta blockers and anticoagulation. Seen at [facility] 02/19/2025 and they recommended to continue [...] a New Patient visit, recently moved from [place] 10/2024 as he was alone in [place] and needed assistance. Has a Hx of Afib. On beta blockers and anticoagulation. Recently seen at [facility] 02/19/2025 and they recommended to continue current [...] measuring 4.20 cm. Under the care of [facility] Card[facility], patient has a follow up visit [...] measuring 4.20 cm. Under the care of [facility] Card[facility], patient has a follow up visit [...] 10:31 AM EDT): Under the care of [facility], since last 02/05/2025 they [...] or Colonoscopy pending GI 05/23/25 at 2:30pm [facility]. Assessment & Plan (03/07/2025 10:39 AM EDT): Lab Results Component Value Date WBC 8.7 01/31/2025 HGB 11.1 (L) 01/31/2025 HCT 32.8 (L) 01/31/2025 MCV 85.0 01/31/2025 PLT 191 01/31/2025 Normal Iron studies and B12, Folate US Abdomen appointment 03/21/25 at 11 AM ([facility]) No records of EGD or Colonoscopy Plan: [...] Encounters Date Type Department Care Team Description 04/24/2025 Refill [facility] [address] [place] [phone] Roula Alejandre DO 04/04/2025 11:00 AM EDT Office Visit [address] [address] Francisco Khoury MD Type 2 diabetes mellitus without complication, without long-term current use of insulin (CMS/HCC) (Primary Dx); Essential hypertension; Chronic systolic congestive heart failure (CMS/HCC); Atrial fibrillation, chronic (CMS/HCC); Anemia, unspecified type; Calculus of gallbladder without cholecystitis without obstruction; Obesity (BMI 30-39.9); Dietary counseling; Exercise counseling 04/04/2025 Orders Only GENERIC EXTERNAL DATA DEPARTMENT Provider, Generic External Data 04/04/2025 Travel 04/03/2025 Telephone [facility] [address] [place] [phone] Francisco Khoury MD CHART PREP 03/30/[address] [phone] Francisco Khoury MD Tinea pedis of both feet 03/07/2025 10:30 AM EDT Office Visit [address] [address] Francisco Khoury MD Atrial fibrillation, chronic ([facility]/HCC) (Primary Dx); Type 2 diabetes mellitus without complication, without long-term current use of insulin ([facility]); Cortical age-related cataract of both eyes; Other hyperlipidemia; Essential hypertension; Chronic systolic congestive heart failure ([facility]); Anemia, unspecified type; Preventative health care; Low vitamin D level; Tinea pedis of both feet 03/07/2025 Telephone [facility] [address] [place] [address] Wanda Yao, Y[facility] Referral 03/07/2025 Travel 03/06/2025 Telephone [facility] [address] [place], [place] [phone] Symone Reyna MA chart prep 03/01/2025 Refill [facility] [address] [place] [address] Roula Alejandre DO 02/28/2025 Patient Outreach [facility] [address] [place] [address] Francisco Khoury MD Pre-visit Planning (SDOH will need to be completed in office. ) 02/22/2025 Telephone [facility] [address] [place] [address] Roula Alejandre DO RESULTS 02/21/2025 Refill [facility] [address] [place] [phone] Roula Alejandre DO from Last 3 Months Family History Medical [...] Care Team (Late st Contact Info) Description 07/04/2025 10:15 AM EDT Office Visit [facility] [address] [place], [place] [phone] Francisco Khoury MD [address] [place], [place] [phone] Health Maintenance Due Date Last Done Comments [...] Procedure Name Priority Date/Time Associated Diagnosis Comments BASIC METABOLIC PANEL Routine 04/04/2025 2:51 PM EDT CBC Routine 04/04/2025 2:51 PM EDT PROTHROMBIN TIME-INR Routine 04/04/2025 2:51 PM EDT POCT GLUCOSE Routine 04/04/2025 11:08 AM EDT Type 2 diabetes mellitus without complication, without long-term current use of insulin (CMS/HCC) US ABDOMEN COMPLETE Routine 03/21/2025 3 :17 [...] PM EDT Acute loss of vision, bilateral HEPATITIS C AB W/REFL TO HCV RNA, QN, PCR Routine 01/31/2025 2:22 PM EDT Atrial fibrillation, chronic (CMS/HCC) Essential hypertension ALBUMIN, RANDOM URINE W/CREATININE Routine 01/31/2025 2:22 PM EDT Atrial fibrillation, chronic (CMS/HCC) Essential hypertension LIPID PANEL, STANDARD Routine 01/31/2025 2:22 PM EDT Atrial fibrillation, chronic (CMS/HCC) Essential hypertension from Last 3 Months or Most Recently Relevant to Health Maintenance Results * (ABNORMAL) Prothrombin Time-INR (04/04/2025 2:51 PM EDT) Pathologist [facility] Prothrombin Time 15.2(H) 10.9 - 12.4 SEC [facility] INTERNATIONAL NORM RATIO 1.3(H) 0.9 - 1.1 [facility] Comment:INTERNATIONAL NORMAL IZED RATIO (INR) REFERENCE RANGES Reference RangeFor patients not on anticoagulant therapy: 0.9 - 1.1INR ranges for oral anticoagulanttherapy:For prevention and treatment of venous thrombosis and pulmonary embolism: 2.0 - 3.0For acute myocardial infarction with aspirin therapy: 2.0 - 3.0For acute myocardial infarction without aspirin therapy: 3.0 - 4.0For patients with mechanical prosthetic heart valves: 2.5 - 3.5 04/04/2025 2:51 PM EDT 04/04/2025 2:51 PM EDT us Generic External Data Provider LAB BLOOD ORDERAB LES Final Result [facility] [address] [place] [address] [phone] * (ABNORMAL) CBC (04/04/2025 2:51 PM EDT) [facility] White Blood Count 7.0 4.8 - 10.8 X10*3/uL [facility] Red Blood Count 5.21 4.60 - 5.80 X10*6/uL [facility] Hemoglobin 13.9(L) 14.0 - 18.0 g/dl [facility] Hematocrit 42.0 42.0 - 52.0 % [facility] Mean Corpuscular Volume 80.6 80.0 - 98.0 fL [facility] Mean Corpuscular Hemoglobin 26.7(L) 27.0 - 33.0 pg [facility] Mean Corpuscular HGB Conc 33.1 31.0 - 36.0 g/dl [facility] Red Cell Distribution Width 14.7 11.0 - 16.0 % [facility] Platelet Count 184 160 - 400 X10*3/uL [facility] Mean Platelet Volume 12.6(H) 9.4 - 12.4 fL [facility] NRBC Pct Auto 0.0 0.0 - 0.2 /100WBC [facility] NRBC Abs Auto 0.000 0.0 - 0.012 X10*3/uL [facility] 04/04/2025 2:51 PM EDT 04/04/2025 2:51 PM EDT us Generic External Data Provider LAB BLOOD ORDERAB LES Final Result Performing Organization Address [facility]/ZIP Co de Phone Number [facility] [address] [place] [phone] * (ABNORMAL) Basic Metabolic Panel (04/04/2025 2:51 PM EDT) Sodium 139 135 - 145 mmol/L [facility] Potassium 4.0 3.3 - 5.1 mmol/L [facility] Chloride 102 96 - 108 mmol/L [facility] Carbon Dioxide 27 22 - 29 mmol/L [facility] Anion Gap 14 12 - 20 [facility] Urea Nitrogen (BUN) 23(H) 9 - 16 mg/dL [facility] Creatinine, Serum 1.06 0.5 - 1.4 mg/dL [facility] Estimated Glomerular Filt Rate >60 [facility] Comment:Chronic Kidney Disea se: Estimated GFR < 60 mL/min/1.96w1Adgpva Kidney Disease: Estimated GFR < 15 mL/min/1.73m2 Glucose 196(H) 60 - 115 mg/dL [facility] Calcium 9.8 8.4 - 10.2 mg/dL [facility] 04/04/2025 2:51 PM EDT 04/04/2025 2:51 PM EDT us Generic External Data Provider LAB BLOOD ORDERAB LES Final Result [facility] [address] [place] [phone] * (ABNORMAL) POCT Glucose (04/04/2025 11:08 AM EDT) Only the most recent of2 resultswithin the time period is included. Glucose [...] PM EDT Narrative 03/21/2025 3:18 PM EDT [address] [address] Ultrasound Report Signed Patient: Peter Armendariz MR#: [id number] [birth year] Acct:[id number] Age/Sex: 64 / M ADM Date: 03/21/25 Loc: HO.US Attending Dr: Roula Alejandre DO Ordering Physician: Roula Alejandre DO Date of Service: 03/21/25 Procedure(s): US abdomen complete Accession Number(s): [id number] cc: Francisco Jeronimo MD; Roula Alejandre DO CLINICAL HISTORY: intermittent abdominal bloating US abdomen complete. COMPARISON: None provided. Technique: Real time sonographic imaging, including color-flow imaging, was performed by the zinc etcher. Multiple jewelry sales representative static images were saved for review. FINDINGS: [...] Gaytan MD in OV> 03/21/25 1518 DD/ 151 TD/TT: 03/21/25 1517 International Bank Manager: Procedure Note Donotuseinterpreter, Image - 03/21/2025 [place] [address] Ultrasound Report Signed Patient: Peter Armendariz [facility]#: [id number] 1948 : 9Acct:[id number] Age/Sex: 64 / MADM Date: 03/21/25 Loc: HO.US Attending Dr: Roula Alejandre DO Ordering Physician: Roula Alejandre DO Date of Service: 03/21/25 Procedure(s): US abdomen complete Accession Number(s): [id number] cc: Francisco Jeronimo MD; Roula Alejandre DO CLINICAL HISTORY: intermittent abdominal bloating US abdomen complete. COMPARISON: None provided. Technique: Real time sonographic imaging, including color-flow imaging, was performed by the zinc etcher. Multiple jewelry sales representative static images were saved for review. FINDINGS: [...] in OV> 03/21/25 1518 DD/ 1517 TD/TT: 03/21/251516 International Bank Manager: us Roula Alejandre DO IMG US PROCEDURES Final Resu lt * PSA, Screen (03/07/2025 11:08 AM EDT) PSA, Total 0.28 <0.05 - 4.0 ng/mL [facility] Comment:PSA methodology: Abb woodrow Alifranklynty i ChemiluminescentMicroparticle Immunoassay (CMIA) Blood Venous blood specimen / Unknown 03/07/2025 11:08 AM EDT 03/07/2025 1:31 PM EDT us Francisco Choi MD LAB BLOOD ORDERABLES Final Result [facility] [address] [place] [phone] * (ABNORMAL) POCT HGB A1C (03/07/2025 10:37 AM EDT) Hemoglobin A1C 7.9(A) 4.0 - 6.0 % QC Media Lot # [id number] Lot# Expiration Date Blood 03/07/2025 10:3 7 AM EDT Francisco Choi MD POINT OF CARE TEST EN TER/EDIT ORDERABLES Final Result * Mr Brain w/ and w/o Contrast (02/12/2025 4:17 PM EDT) Anatomical Region Laterality Modality Brain Magnetic Resonan ce 02/12/2025 4:17 PM EDT Narrative 02/13/2025 8:22 AM EDT [address] [address] Magnetic Resonance Report Signed Patient: Peter Armendariz MR#: [id number] [birth year] Acct:[id number] Age/Sex: 64 / M ADM Date: 02/12/25 Loc: HO.MRI Attending Dr: Roula Alejandre DO Ordering Physician: Roula Alejandre DO Date of Service: 02/12/25 Procedure(s): MR head/brain wo/w con Accession Number(s): [id number] cc: Francisco Jeronimo MD; Roula Alejander DO EXAMINATION: MR BRAIN WITHOUT AND WITH [...] 02/13/25 0819 DD/ 1617 TD/TT: 02/12/25 1638 International Bank Manager: Procedure Note Donotuseinterpreter, Image - 02/18/[address] [address] Magnetic Resonance Report Signed Patient: Peter Armendariz [facility]#: [id number] [birth year] : 9Acct:[id number] Age/Sex: 64 / MADM Date: 02/12/25 Loc: HO.MRI Attending Dr: Roula Alejandre DO Ordering Physician: Roula Alejandre DO Date of Service: 02/12/25 Procedure(s): MR head/brain wo/w con Accession Number(s): [id number] cc: Francisco Jeronimo MD; Roula Alejandre DO [...] 02/13/25 0819 DD/ 1617 TD/TT: 02/12/25 1638 International Bank Manager: us Roula Alejandre DO IMG MRI PROCEDURES Edited Re sult - Final * Albumin, Random Urine W/Creatinine (01/31/2025 2:22 PM EDT) Creatinine, Urine 58.38 mg/dL [facility] Microalbumin Urine <5.0 mg/L [facility] Microalbum Creatinine Ratio Ur TNP <30 ug/mg cr [facility] Comment:Unable to calculate albumin/creatinine ratio due to lowmicroalbumin or creatinine result. Urine (Urine, Random) 01/31/2025 2:22 PM EDT 01/31/2025 4:03 PM EDT us Roula Alejandre DO LAB URINE ORDERABLES Final R esult [facility] [address] [place] [phone] * Hepatitis C Antibody with Reflex to HCV, RNA, Quantitative, Real-Time PCR (01/31/2025 2:22 PM EDT) Hepatitis C Antibody Nonreactive Nonreactive [facility] Comment:Antibodies to HCV no t detected; does not exclude early acuteHCV infection. Blood Venous blood specimen / Unknown 01/31/2025 2:22 PM EDT 01/31/2025 4:01 PM EDT Roula Alejandre LAB BLOOD ORDERABLES Final R esult Performing Organization Address [facility] Co de Phone Number [facility] [address] [place] [phone] * (ABNORMAL) Lipid Panel, Standard (01/31/2025 2:22 PM EDT) Triglycerides 167(H) <150 mg/dL [facility] Comment:Desirable Triglyceri de: less than 150 mg/dLBorderline High Triglyceride 150-199 mg/dLHigh Triglyceride: 200-499 mg/dLVery High Triglyceride: greater than or equal to 5OO mg/dL Cholesterol 154 <200 mg/dL [facility] Comment:Desirable Cholestero l: less than 200 mg/dLBorderline High Cholesterol: 200-239 mg/dLHigh Cholesterol: greater than 239 mg/dL LDL Cholesterol Calculated 81 <100 mg/dL [facility] Comment:Desirable LDL: less than 100 mg/dLNear Optimal/Above Optimal LDL: 110- 129 mg/dLBorderline High LDL: 130-159 mg/dLHigh LDL: 160-189 mg/dLVery High LDL: greater than or equal to 190 mg/dL HDL Cholesterol 40(L) >40 mg/dL [facility] Comment:Desirable HDL: great er than 40 mg/dL Note: This HDL assay may give artificially low results in patients with liver disease. Blood Venous blood specimen / Unknown 01/31/2025 2:22 PM EDT 01/31/2025 4:01 PM EDT Roula Alejandre DO LAB BLOOD ORDERABLES Final R esult Performing Organization Address [facility]/ZIP Co de Phone Number [facility] [address] [place] [phone] from Last 3 Months or Most Recently Relevant to Health Maintenance Insurance [facility] STANDARD Care Teams Ux Engineer Relationship Specialty Start Date End Date Francisco Khoury MD [address] [place] [address] PCP - General Internal Medicine 03/07/25
== END 2025-05-13 10:14 | disposition home or self-care (01) ==
LOC: HO.HCS 09:48
PROVIDERS: PCP Internal Medicine; Visit Provider Internal Medicine
DX: I48.19 Other persistent atrial fibrillation (principal); I42.9 Cardiomyopathy, unspecified; I35.0 Nonrheumatic aortic (valve) stenosis; I05.0 Rheumatic mitral stenosis; I27.20 Pulmonary hypertension, unspecified; I77.810 Thoracic aortic ectasia; Z01.810 Encounter for preprocedural cardiovascular examination
CPT/HCPCS: 99214

== ENCOUNTER → 2025-05-13 09:47 | Outpatient (BNVA) | payer MEDICAID, SELFPAY | PROVIDERS: PCP Internal Medicine; Visit Provider Internal Medicine | DX: Z01.810 Encounter for preprocedural cardiovascular examination (principal); I77.810 Thoracic aortic ectasia; I27.20 Pulmonary hypertension, unspecified; I05.0 Rheumatic mitral stenosis; I35.0 Nonrheumatic aortic (valve) stenosis; I42.9 Cardiomyopathy, unspecified; I48.19 Other persistent atrial fibrillation | CPT/HCPCS: 99212 ==

== ENCOUNTER 2025-05-23 14:04 | Outpatient (AMB) | payer MEDICAID, SELFPAY ==
--- NOTE | 2025-05-23 14:09 | MHC.OFFVIS ---
Vital Signs 05/23/25 14:10 Height 5 ft 6 in Weight 196 lb BMI 31.6 BP 132/71 Blood Pressure Location Lt brachial Position Sitting Pulse 54 Pulse Oximetry (%) 96 Oxygen Delivery Method Room Air Intake Visit Reasons: Anemia Intake Note: Patient new consult for Anemia. Patient cc: constipation due Iron medication and GERD is much better because med. Denies any other GI issues. Serology Teacher Required: Yes Serology Teacher Name: [facility] Interpeter Accompanied by: Family/Other Allergies No Known Allergies Allergy (Verified 05/23/25 14:06) HPI HPI Anemia: Details: Patient is a 64-year-old male with PMH of diabetes, AFib, hypertension, CHF, CAD and history of alcohol use disorder. Referred by PCP for further evaluation of anemia Patient is accompanied by his brother and niece. Shares he relocated from [place] in November of this year. He reports that he was started on iron supplementation in June of the previous year. Before beginning iron therapy, bowel habits were regular; however, they are now impacted, requiring increased straining during defecation. He states his weight has been stable between 180?190 lbs both in [place] and upon arrival to the earlier this year. He denies dysphagia, heartburn, or regurgitation, opting to take omeprazole only as needed. There have been no changes in appetite, and he denies systemic symptoms like fever or fatigue at this time. Further, he denies prior colonoscopy or stool-based colorectal cancer screening. Relevant comorbidities include atrial fibrillation managed with anticoagulation, hypertension, hyperlipidemia, and diabetes mellitus. Clearance for the colonoscopy is contingent upon cardiology?s evaluation of his cardiac function and procedural tolerance. Of note, he has a family history of various cancers, including prostate cancer that metastases to colon cancer in his brother and bone cancer in his father. Patient denies: n/v, appetite changes, pyrosis, regurgitation,dysphasia, unintentional wt loss, ab pain or melena/hematochezia. Social hx: -denies ETOH use -denies recreational drug use -non-smoker - family hx as below -denies personal hx of CA -no prior surgery/procedural hx requring Anesthesia/sedation. [facility] Medical History (Updated 05/23/25 @ 15:45 by Kelsea Guerra CNP) Colon cancer screening MARIO (iron deficiency anemia) Constipation Elevated alkaline phosphatase level Legally blind Ascending aorta dilatation Anemia History of alcohol use disorder Hyperlipidemia Type 2 diabetes mellitus Bilateral cataracts Coronary artery disease Atrial fibrillation CHF (congestive heart failure) Family History (Updated 05/23/25 @ 14:38 by Kelsea Guerra CNP) Brother Cancer Mother Diabetes Father Cancer Social History Alcohol intake: former Patient Tobacco Use Status: Never used Tobacco Review of Systems Const Reports as per HPI ENT Reports as per HPI Card Reports as per HPI Resp Reports as per HPI GI Reports as per HPI Reports as per HPI Physical Exam Vital Signs: Oxygen Delivery Method Room Air 05/23/25 14:10 BMI result Body Mass Index 31.6 Const General: healthy appearing, no acute distress and well developed Nutritional Appearance: average body habitus Orientation/consciousness: patient oriented x3 HEENT Head: Yes normal to inspection, Yes normocephalic and Yes atraumatic Face and sinus: Yes normal facial exam Neck Neck: Yes normal visual inspection Resp Effort & Inspection: normal respiratory effort, able to speak in complete sentences, no tracheal deviation and symmetric chest movement Auscultation: clear to auscultation bilaterally Cardio Jugular venous distension: no JVD Rate: regular rate Rhythm: regular rhythm Heart sounds: S1 normal heart sound present, S2 normal heart sound present, no gallops and no murmurs GI Inspection: Yes normal to inspection, No distended and Yes obesity Palpation (GI): Soft to palpation, not firm, nontender and No hepatosplenomegaly present Auscultation: normal bowel sounds Neuro General: patient oriented x3 Gait exam (Neuro): Normal gait present Psych Appearance: grossly normal Mental Status: mental status grossly normal Speech and movement: Normal speech and movement present Affect: normal affect Attitude: cooperative Thought process: Normal thought process present Thought content: Normal thought content present Insight: Good insight present (Psych) Judgement: Good judgement present (Psych) Assessment & Plan Assessment & Plan (1) MARIO (iron deficiency anemia): Code(s): D50.9 - Iron deficiency anemia, unspecified Category: Medical Qualifiers: Iron deficiency anemia type: unspecified iron deficiency Qualified Code(s): D50.9 - Iron deficiency anemia, unspecified Plan: Anemia identified via recent labs, with iron deficiency attributed to GI loss until proven otherwise Additional Testing: -Colonoscopy and upper endoscopy scheduled to rule out colorectal malignancy and other causes of GI bleeding -Fasting labs to assess liver function, with 8-hour fasting before sample collection Medication Management: -Initiate stool softener (docusate) 100 mg, 1 tablet at bedtime -Maintain fiber-rich diet (fruits, vegetables, beans, nuts) and hydration with water Lifestyle Recommendations:Continue fiber intake and hydration Follow-Up:Await cardiology clearance for procedural safety (2) Constipation: Code(s): K59.00 - Constipation, unspecified Category: Medical Qualifiers: Constipation type: drug induced constipation Qualified Code(s): K59.03 - Drug induced constipation Plan: Constipation attributed to recent initiation of oral iron supplementation Additional Testing: None at this time Medication Management:Docusate as above Lifestyle Recommendations: Increase dietary fiber and fluid intake Follow-Up: Monitor improvement after initiation of stool softener (3) Elevated alkaline phosphatase level: Code(s): R74.8 - Abnormal levels of other serum enzymes Category: Medical Plan: Elevated alkaline phos noted at time of non-fasting labs November and January of this year Fasting labs as below (4) Legally blind: Code(s): H54.8 - Legal blindness, as defined in [place] Category: Medical Plan: Patient is legally blind, awaiting further evaluation for vision and cardiac surgery Additional Testing: -Ophthalmology follow-up as scheduled -Cardiac surgical evaluation for vision-related intervention Medication Management: None specific at this time Lifestyle Recommendations:Ensure support for medication administration and bowel prep instructions due to vision impairment Follow-Up: With ophthalmology and cardiology as scheduled (5) Colon cancer screening: Code(s): Z12.11 - Encounter for screening for malignant neoplasm of colon Category: Medical Plan: Due for index screening colonoscopy. Known MARIO without other alarm features. Medications: -prescriptions for laxative tablets and MiraLax sent to pharmacy; instructions for Gatorade purchase and clear liquid diet given. - understands diabetes medications and Apixaban will need to be held days prior to procedure. Nurse to review med holds per protocol. Patient educated on scheduling process, procedure preparation, including avoiding certain foods and ensuring clear liquid intake Advised on necessity for ride post-procedure due to sedation. Plan Follow-up after endoscopy or sooner as needed Time: I spent a total of 45 minutes on the date of encounter which includes: Preparing to see the patient (reviewed previous documentation, test results and medical history) Performing a medically appropriate exam and/or evaluation Ordering medications, tests, and procedures Documenting clinical information in the health record Orders: Orders Comprehensive [place]. Panel Fast Today R74.8 - Abnormal levels of other serum enzymes Alkaline Phosphatase Isoenzyme Today R74.8 - Abnormal levels of other serum enzymes Medications: New docusate sodium Take one tablet at bedtime 100 mg PO BEDTIME 90 caps 1RF constipation bisacodyl (Dulcolax (bisacodyl)) Take four tablets pre colonoscopy instructions 20 mg (4 x 5 mg) PO ONCE 4 tabs 0RF 1 day polyethylene glycol 3350 (Miralax) per colonoscopy prep instructions 238 grams PO ONCE 238 grams 0RF Coding Level of Care Code New Pt New Pt Level 4 (20883) Patient Type New Diagnoses Iron deficiency anemia, unspecified iron deficiency anemia type D50.9 Iron deficiency anemia type: unspecified iron deficiency Drug-induced constipation K59.03 Constipation type: drug induced constipation Elevated alkaline phosphatase level R74.8 Legally blind H54.8 Colon cancer screening Z12.11
[2025-05-23 14:10] VITALS: BP 132/71; PULSE 54; O2SAT 96; BMI 31.6
--- OUTSIDE RECORDS SUMMARY | 2025-05-23 14:12 | XMS_ITS | Clinical Summary ---
Author Organization [employer] Address [address] [place] [address] Care Team Providers Care Sweeper Cleaner Industrial Name Role Phone Francisco Khoury MD Primary [...] per week. 1 kit 02/01/20 25 Active hydroCHLOROthi azide (HYDRODiuril) 25 MG tablet Take 1 tablet (25 mg) by mouth Once per day. 30 tablet 3 02/01/20 25 Active ferrous sulfate (Fe Tabs) 325 (65 Fe) MG EC tablet Take 1 tablet (325 mg) by mouth with breakfast. Do not crush, chew, or split. 30 tablet 3 02/01/20 25 Active folic acid (Folvite) 1 MG tablet Take 1 tablet (1 mg) by mouth Once per day. 30 tablet 3 02/01/20 25 Active metoprolol succinate XL (Toprol XL) 50 MG 24 hr tablet Take 1 tablet (50 mg) by mouth Once per day. Do not crush or chew. 30 tablet 3 02/01/20 25 Active cholecalcifero l (Vitamin D-3) 50 MCG (2000 UT) capsule Take 1 capsule (50 mcg) by mouth Once per day. 90 capsule 3 05/11/22 24 Active fluticasone (Flonase) 50 MCG/ACT nasal spray [...] 6 HOURS NEEDED FOR GAS 30 tablet 03/05/20 25 Active clotrimazole (Lotrimin) 1 % creamIndicatio ns:Tinea pedis of both feet APPLY TO THE AFFECTED AREA(S) TWICE DAILY FOR 28 DAYS 30 g 04/02/20 25 Active metFORMIN XR (Glucophage-XR ) 500 MG 24 hr tabletIndicati ons:Type 2 diabetes mellitus without complication, without long-term current use of insulin ([facility]) Take 2 tablets (1,000 mg) by mouth [...] DAILY 90 tablet 1 04/25/20 25 Active Ascorbic Acid (vitamin C) 250 MG tablet TAKE 1 TABLET BY MOUTH DAILY 90 tablet 1 04/25/20 25 Active Eliquis 5 MG tablet TAKE 1 TABLET BY MOUTH TWICE DAILY 60 tablet 3 05/23/20 25 Active Jardiance 10 MG TAKE 1 TABLET BY MOUTH DAILY 30 tablet 05/23/20 25 Active empagliflozin (Jardiance) 10 MG Take 1 tablet (10 mg) by mouth Once per day. 30 tablet 3 02/01/20 25 025 Discontinued atorvastatin (Lipitor) 40 MG tablet Take 1 tablet (40 mg) by mouth Once per day. 30 tablet 3 02/01/20 25 025 Discontinued apixaban (Eliquis) 5 MG tablet Take 1 tablet (5 mg) by mouth 2 times daily. 60 tablet 3 02/01/20 25 025 Discontinued omeprazole OTC (PriLOSEC OTC) 20 MG EC tablet Take 1 tablet (20 mg) by mouth before breakfast. Do not crush, chew, or split. 30 tablet 3 02/01/20 25 025 Discontinued Ascorbic Acid (vitamin C) 250 MG tablet Take 1 tablet (250 mg) by mouth Once per day. 30 tablet 3 02/01/20 25 025 Discontinued Active Problems Problem [...] On beta blockers and anticoagulation. Seen at [facility] 02/19/2025 and they recommended to continue [...] a New Patient visit, recently moved from [place] 10/2024 as he was alone in [place] and needed assistance. Has a Hx of Afib. On beta blockers and anticoagulation. Recently seen at [facility] 02/19/2025 and they recommended to continue [...] measuring 4.20 cm. Under the care of [facility], patient has a follow up visit [...] measuring 4.20 cm. Under the care of [facility], patient has a follow up visit [...] 10:31 AM EDT): Under the care of [facility], since last 02/05/2025 they [...] or Colonoscopy pending GI 05/23/25 at 2:30pm [facility]. Assessment & Plan (03/07/2025 10:39 AM EDT): Lab Results Component Value Date WBC 8.7 01/31/2025 HGB 11.1 (L) 01/31/2025 HCT 32.8 (L) 01/31/2025 MCV 85.0 01/31/2025 PLT 191 01/31/2025 Normal Iron studies and B12, Folate US Abdomen appointment 03/21/25 at 11 AM ([facility]) No records of EGD or Colonoscopy [...] Encounters Date Type Department Care Team Description 05/23/2025 Refill [facility] [address] [place] [address] [phone] Roula Alejandre DO 04/24/2025 Refill [facility] [address] [place] [address] [phone] Roula Alejandre DO 04/04/2025 11:00 AM EDT Office Visit [facility] [address] [place] [address] [phone] Francisco Khoury MD Type 2 diabetes mellitus [...] Telephone [facility] [address] [place] [address] [phone] Francisco Khoury MD CHART PREP 03/30/2025 Refill [facility] [address] [place] [address] [phone] Francisco Khoury MD Tinea pedis of both feet 03/07/2025 10:30 AM EDT Office Visit [facility] [address] [place] [address] [phone] Francisco Khoury MD Atrial fibrillation, chronic (CMS/HCC) (Primary Dx); Type 2 diabetes mellitus without complication, without long-term current use of insulin (CMS/HCC); Cortical age-related cataract of both eyes; Other hyperlipidemia; Essential hypertension; Chronic systolic congestive heart failure (CMS/HCC); Anemia, unspecified type; Preventative health care; Low vitamin D level; Tinea pedis of both feet 03/07/2025 Telephone [facility] [address] [place] [address] [phone] Wanda Yao RN VNA Referral 03/07/2025 Travel 03/06/2025 Telephone [facility] [address] [place] [address] [phone] Symone Reyna MA chart prep 03/01/2025 Refill [facility] [address] [place] [address] [phone] Roula Alejandre DO 02/28/2025 Patient Outreach [facility] [address] [place] [address] Francisco Khoury MD Pre-visit Planning (SDOH will need to be completed in office. ) 02/22/2025 Telephone [facility] [address] [place] [address] [phone] Roula Alejandre DO RESULTS 02/21/2025 Refill [facility] [address] [place] [address] [phone] Roula Alejandre DO from Last 3 Months [...] [facility] [address] [place] [address] Francisco Khoury MD [address] [place] [address] Health Maintenance Due Date Last Done Comments [...] without long-term current use of insulin (CMS/HCC) HEPATITIS C AB W/REFL TO HCV RNA, [...] Prothrombin Time-INR (04/04/2025 2:51 PM EDT) Pathologist [facility] Prothrombin Time 15.2(H) 10.9 - 12.4 SEC [facility] INTERNATIONAL NORM RATIO 1.3(H) 0.9 - 1.1 [facility] Comment:INTERNATIONAL NORMAL IZED RATIO (INR) [...] Provider LAB BLOOD ORDERAB LES Final Result [facility] [address] [place] [phone] * (ABNORMAL) CBC (04/04/2025 2:51 PM EDT) Pathologist [facility] White Blood Count 7.0 4.8 - 10.8 X10*3/uL [facility] Red Blood Count 5.21 4.60 - 5.80 X10*6/uL [facility] Hemoglobin 13.9(L) 14.0 - 18.0 g/dl [facility] Hematocrit 42.0 42.0 - 52.0 % [facility] Mean Corpuscular Volume 80.6 80.0 - 98.0 fL [facility] Mean Corpuscular Hemoglobin 26.7(L) 27.0 - 33.0 pg [facility] Mean Corpuscular HGB Conc 33.1 31.0 - 36.0 g/dl [facility] Red Cell Distribution Width 14.7 11.0 - 16.0 % [facility] Platelet Count 184 160 - 400 X10*3/uL [facility] Mean Platelet Volume 12.6(H) 9.4 - 12.4 fL [facility] NRBC Pct Auto 0.0 0.0 - 0.2 /100WBC [facility] NRBC Abs Auto 0.000 0.0 - 0.012 X10*3/uL [facility] 04/04/2025 2:5 1 PM EDT 04/04/2025 2:51 PM EDT us Generic External Data Provider LAB BLOOD ORDERAB LES Final Result [facility] [address] [place] [phone] * (ABNORMAL) Basic Metabolic Panel (04/04/2025 2:51 PM EDT) Sodium 139 135 - 145 mmol/L [facility] Potassium 4.0 3.3 - 5.1 mmol/L [facility] Chloride 102 96 - 108 mmol/L [facility] Carbon Dioxide 27 22 - 29 mmol/L [facility] Anion Gap 14 12 - 20 [facility] Urea Nitrogen (BUN) 23(H) 9 - 16 mg/dL [facility] Creatinine, Serum 1.06 0.5 - 1.4 mg/dL [facility] Estimated Glomerular Filt Rate >60 [facility] Comment:Chronic Kidney Disea se: Estimated GFR < 60 mL/min/1.05z5Klwlwa Kidney Disease: Estimated GFR < 15 mL/min/1.73m2 Glucose 196(H) 60 - 115 mg/dL [facility] Calcium 9.8 8.4 - 10.2 mg/dL [facility] 04/04/2025 2:51 PM EDT 04/04/2025 2:51 PM EDT us Generic External Data Provider LAB BLOOD ORDERAB LES Final Result [facility] [address] [place] [address] [phone] * (ABNORMAL) POCT Glucose (04/04/2025 11:08 [...] PM EDT Narrative 03/21/2025 3:18 PM EDT [address] [id number] Ultrasound Report Signed Patient: Peter Armendariz MR#: [id number] [birth year] Acct:[id number] Age/Sex: 64 / M ADM Date: 03/21/25 Loc: HO.US Attending Dr: Roula Alejandre DO Ordering Physician: Roula Alejandre DO Date of Service: 03/21/25 Procedure(s): US abdomen complete Accession Number(s): [id number] cc: Francisco Jeronimo MD; Roula Alejandre DO CLINICAL HISTORY: intermittent abdominal bloating US abdomen complete. COMPARISON: None provided. Technique: Real time sonographic imaging, including color-flow imaging, was performed by the labor trainer. Multiple personal banking representative static images were saved for review. [...] in OV> 03/21/25 1518 DD/ 151 TD/TT: 03/21/251516 Research Food Technologist: Procedure Note Donotuseinterpreter, Image - 03/21/2025 [place] [address] Ultrasound Report Signed Patient: Peter Armendariz [facility]#: [id number] 1948 : 9Acct:[id number] Age/Sex: 64 / MADM Date: 03/21/25 Loc: HO.US Attending Dr: Roula Alejandre DO Ordering Physician: Roula Alejandre DO Date of Service: 03/21/25 Procedure(s): US abdomen complete Accession Number(s): [id number] cc: Francisco Jeronimo MD; Roula Alejandre DO CLINICAL HISTORY: intermittent abdominal bloating US abdomen complete. COMPARISON: None provided. Technique: Real time sonographic imaging, including color-flow imaging, was performed by the labor trainer. Multiple personal banking representative static images were saved for review. [...] 03/21/25 1518 DD/ 1517 TD/TT: 03/21/25 1517 Research Food Technologist: us Roula Alejandre DO IMG US PROCEDURES Final Resu lt * PSA, Screen (03/07/2025 11:08 AM EDT) PSA, Total 0.28 <0.05 - 4.0 ng/mL [facility] Comment:PSA methodology: González troy [place] i ChemiluminescentMicroparticle Immunoassay (CMIA) Blood Venous blood specimen / Unknown 03/07/2025 11:08 AM EDT 03/07/2025 1:31 PM EDT Francisco Choi MD LAB BLOOD ORDERABLES Final Result Performing Organization Address City/[facility]/ZIP Co de Phone Number [facility] [address] [place] [phone] * (ABNORMAL) POCT HGB A1C (03/07/2025 10:37 AM EDT) Pathologist [facility] Hemoglobin A1C 7.9(A) 4.0 - 6.0 % QC Media Lot # [id number] Lot# Expiration Date Blood 03/07/2025 10:3 7 AM EDT Francisco Choi MD POINT OF CARE TEST EN TER/EDIT ORDERABLES Final Result * Albumin, Random Urine W/Creatinine (01/31/2025 2:22 PM EDT) Pathologist [facility] Creatinine, Urine 58.38 mg/dL [facility] Microalbumin Urine <5.0 mg/L [facility] Microalbum Creatinine Ratio Ur TNP <30 ug/mg cr [facility] Comment:Unable to calculate albumin/creatinine ratio due to lowmicroalbumin or creatinine result. Urine (Urine, Random) 01/31/2025 2:22 PM EDT 01/31/2025 4:03 PM EDT Roula Alejandre DO LAB URINE ORDERABLES Final R esult Performing Organization Address City/[facility]/ZIP Co de Phone Number [facility] [address] [place] [phone] * Hepatitis C Antibody with Reflex to HCV, RNA, Quantitative, Real-Time PCR (01/31/2025 2:22 PM EDT) Hepatitis C Antibody Nonreactive Nonreactive [facility] Comment:Antibodies to HCV no t detected; does not exclude early acuteHCV infection. Blood Venous blood specimen / Unknown 01/31/2025 2:22 PM EDT 01/31/2025 4:01 PM EDT Roula Hill DO LAB BLOOD ORDERABLES Final R esult Performing Organization Address [facility] Co de Phone Number [facility] [address] [place] [phone] * (ABNORMAL) Lipid Panel, Standard (01/31/2025 2:22 PM EDT) Triglycerides 167(H) <150 mg/dL [facility] Comment:Desirable Triglyceri de: less than 150 mg/dLBorderline High Triglyceride 150-199 mg/dLHigh Triglyceride: 200-499 mg/dLVery High Triglyceride: greater than or equal to 5OO mg/dL Cholesterol 154 <200 mg/dL [facility] Comment:Desirable Cholestero l: less than 200 mg/dLBorderline High Cholesterol: 200-239 mg/dLHigh Cholesterol: greater than 239 mg/dL LDL Cholesterol Calculated 81 <100 mg/dL [facility] Comment:Desirable LDL: less than 100 mg/dLNear Optimal/Above Optimal LDL: 110- 129 mg/dLBorderline High LDL: 130-159 mg/dLHigh LDL: 160-189 mg/dLVery High LDL: greater than or equal to 190 mg/dL HDL Cholesterol 40(L) >40 mg/dL [facility] Comment:Desirable HDL: great er than 40 mg/dL Note: This HDL assay may give artificially low results in patients with liver disease. Blood Venous blood specimen / Unknown 01/31/2025 2:22 PM EDT 01/31/2025 4:01 PM EDT Roula Alejandre DO LAB BLOOD ORDERABLES Final R esult Performing Organization Address [facility]/ZIP Co de Phone Number [facility] [address] [place] [phone] from Last 3 Months or Most Recently Relevant to Health Maintenance Insurance [facility] STANDARD Care Teams Sweeper Cleaner Industrial Relationship Specialty Start Date End Date Francisco Khoury MD [address] [place] [address] PCP - General Internal Medicine 03/07/25
== END 2025-05-23 15:05 | disposition home or self-care (01) ==
LOC: HO.HGI 14:05
PROVIDERS: PCP Internal Medicine; Visit Provider Nurse Practitioner Family
DX: Z01.818 Encounter for other preprocedural examination (principal); Z12.11 Encounter for screening for malignant neoplasm of colon; D50.9 Iron deficiency anemia, unspecified; K59.03 Drug induced constipation; R74.8 Abnormal levels of other serum enzymes; H54.8 Legal blindness, as defined in USA
CPT/HCPCS: 99204

== ENCOUNTER → 2025-05-23 14:04 | Outpatient (BNVA) | payer MEDICAID, SELFPAY | PROVIDERS: PCP Internal Medicine; Visit Provider Nurse Practitioner Family | DX: Z01.818 Encounter for other preprocedural examination (principal); D50.9 Iron deficiency anemia, unspecified; K59.03 Drug induced constipation; R74.8 Abnormal levels of other serum enzymes; H54.8 Legal blindness, as defined in USA; F10.20 Alcohol dependence, uncomplicated | CPT/HCPCS: 99212 ==

== ENCOUNTER 2025-06-17 07:41 | Emergency (ER) | payer MEDICAID, SELFPAY ==
--- NOTE | 2025-06-17 | ECG_ITS ---
Test Reason : CP Blood Pressure : */* mmHG Vent. Rate : 54 BPM Atrial Rate : * BPM P-R Int : * ms QRS Dur : 84 ms QT Int : 450 ms P-R-T Axes : * 82 13 degrees QTcB Int : 426 ms Atrial fibrillation with slow ventricular response Low voltage QRS Cannot rule out Anteroseptal infarct (cited on or before 20-Nov-2024) Abnormal ECG When compared with ECG of 20-Nov-2024 10:12, No significant changes seen Referred By: Generic ED Physician Electronically Signed By: JEFFREY LOMELI
--- NOTE | ~2025-06-17 | XR_ITS ---
EXAMINATION: XR CHEST CLINICAL INFORMATION: cough COMPARISON: November 20, 2024 TECHNIQUE: 2 views of the chest were obtained. FINDINGS: Pulmonary reticular pattern. Prominence of the interstitial markings. Probable Kemar B lines in the right hemithorax. No pleural effusion. No pneumothorax. Cardiomediastinal silhouette size is prominent, unchanged. Multilevel thoracic and upper lumbar spondylosis. XR/XR chest 2V IMPRESSION: Mild interstitial lung edema should be considered. Cardiomegaly versus pericardial effusion. Electronically signed by: Ian Spear MD 06/17/2025 09:48 AM EDT
[2025-06-17 07:57] VITALS: BP 170/72; PULSE 61; RESP 18; TEMP 36.8; O2SAT 95; BMI 29.7
--- NOTE | 2025-06-17 07:57 | MHC.EDTECH ---
Patient brought into triage area,EKG taken per order and signed by provider,labs,covid,and flu obtained and sent to lab.
[2025-06-17 08:00] LABS: MANUAL DIFF FLAG NO
[2025-06-17 08:01] LABS: Hematocrit 42.7 % (42.0-52.0); Hemoglobin 14.2 g/dl (14.0-18.0); Imm Gran Abs Auto 0.01 X10*3/uL (0.00-0.03); Imm Gran Pct Auto 0.1 % (0.0-0.4); Lymphocytes Absolute Auto 2.8 X10*3/uL (1.2-4.9); Mean Corpuscular HGB Conc 33.3 g/dl (31.0-36.0); Mean Corpuscular Hemoglobin 25.5 pg (27.0-33.0); Mean Corpuscular Volume 76.7 fL (80.0-98.0); NRBC Abs Auto 0.000 X10*3/uL (0.0-0.012); NRBC Pct Auto 0.0 /100WBC (0.0-0.2); Platelet Count 170 X10*3/uL (160-400); Red Blood Count 5.57 X10*6/uL (4.60-5.80); White Blood Count 7.8 X10*3/uL (4.8-10.8)
[2025-06-17 08:19] LABS: Alanine Aminotransferase 29 U/L (0-40); Albumin Level 4.2 g/dL (3.5-5.0); Alkaline Phosphatase 234 U/L (39-117); Anion Gap 15 (12-20); Aspartate Amino Transferase 26 U/L (5-37); Blood Urea Nitrogen 17 mg/dL (9-16); Calcium 9.8 mg/dL (8.4-10.2); Carbon Dioxide 25 mmol/L (22-29); Chloride 104 mmol/L (96-108); Creatinine Clr Calc Pharmacy 85.8; Estimated Glomerular Filt Rate > 60; Potassium 3.7 mmol/L (3.3-5.1); Sodium 140 mmol/L (135-145); Total Protein 9.3 g/dL (6.5-8.0)
[2025-06-17 08:20] LABS: COVID-19 Test Negative (Negative); IDNOW Serial# 55D5AD1C; IDNOW Serial# 58CA691E; Influenza B2 Negative (Negative)
--- NOTE | 2025-06-17 08:21 | ED_ITS ---
HPI - Chest Pain General Chief Complaint: Chest Pain Stated Complaint: CP, coughing not feeling good Time Seen by Provider: 06/17/25 08:21 Source: patient and hourly sign language interpreter Mode of arrival: ambulatory Limitations: language barrier History of Present Illness ED Provider: HPI narrative: 64-year-old male presenting with cough for the past 6 days he is also describing nonradiating midsternal chest pain worse when he is coughing, there has been no hemoptysis, no sore throat, no abdominal pain no dysuria had 1 episode of clear liquid vomitus according to patient's son, otherwise patient has had chills but no reported fevers. Related Data Home Medications ?Medication ?Instructions ?Recorded ?Confirmed ascorbic acid (vitamin C) 250 mg 250 mg PO DAILY 02/1905/13/25 tablet cholecalciferol (vitamin D3) 50 50 mcg PO DAILY 05/13/25 mcg (2,000 unit) capsule empagliflozin 10 mg tablet 10 mg PO DAILY 02/19/2508/27 (Jardiance) omeprazole 20 mg capsule,delayed 20 mg PO DAILY 05/13/25 release simethicone 125 mg capsule (Gas 125 mg PO BID-QID PRN 02/19/25 05/13/25 Relief (simethicone)) cetirizine 10 mg tablet 10 mg PO DAILY PRN 04/04/25 05/13/25 metformin 500 mg tablet 500 mg PO DAILY 04/04/2508/27 Previous Rx's ?Medication ?Instructions ?Recorded apixaban 5 mg tablet (Eliquis) 5 mg PO BID #60 tabs atorvastatin 40 mg tablet 40 mg PO BEDTIME #30 tabs ferrous sulfate 325 mg (65 mg 325 mg PO BID #60 tabs 0 11/20/24 iron) tablet folic acid 1 mg tablet 1 mg PO DAILY #30 tabs 11/20 hydrochlorothiazide 25 mg tablet 25 mg PO DAILY #30 ta bs 11/20/24 metoprolol succinate 50 mg 25 mg (1/2 x 50 mg) PO MACKENZIE Y #90 03/18/25 tablet,extended release 24 hr tabs bisacodyl 5 mg tablet,delayed 20 mg (4 x 5 mg) PO ONCE 1 day #4 05/23/25 release (Dulcolax (bisacodyl)) tabs docusate sodium 100 mg capsule 100 mg PO BEDTIME const ipation #90 05/23/25 caps polyethylene glycol 3350 17 238 g PO ONCE #238 grams 0 05/23/25 gram/dose oral powder (Miralax) furosemide 20 mg tablet (Lasix) 20 mg PO BID 7 days #1 4 tabs 06/17/25 Allergies Allergy/AdvReac Type Severity Reaction Status Date / Time No Known Allergies Allergy Verified 06/17/25 08:00 Review of Systems 2 Constitutional: Constitutional: Reports as per HPI [facility] Past Medical History Medical History (Updated 06/17/25 @ 12:57 by Maximino Rowley DO) Colon cancer screening MARIO (iron deficiency anemia) Constipation Elevated alkaline phosphatase level Legally blind Ascending aorta dilatation Anemia History of alcohol use disorder Hyperlipidemia Type 2 diabetes mellitus Bilateral cataracts Coronary artery disease Atrial fibrillation CHF (congestive heart failure) Family History Family History (Updated 05/23/25 @ 14:38 by Kelsea Guerra CNP) Brother Cancer Mother Diabetes Father Cancer Social History Social History Alcohol intake: former Patient Tobacco Use Status: Never used Tobacco Advance Directives: No Advance Directives Information Provided: Yes Physical Exam 2 Vital Signs: Vital Signs: Last Vital Signs Temp 98.2 F 06/17/25 07:57 Pulse 66 06/17/25 11:09 Resp 15 06/17/25 11:09 BP 155/73 H 06/17/25 11:13 Pulse Ox 96 06/17/25 11:09 O2 Del Method Room Air 06/17/25 11:09 BMI result Body Mass Index 29.7 Const: Other: * Gen: ?Overall well-appearing patient * HEENT: Patient is blind at baseline, oropharyngeal examination with uvula midline * Neck: Supple, no LAD * CV: Irregular regular S1-S2 * Resp: ?No wheezing rales rhonchi no stridor moving air well * Abd: ?Bowel sounds are present, no tenderness no rebound no rigidity * MSK: FROM, strength 5/5 all extremities * Skin: Warm, dry, intact, * Neuro: ?Alert and oriented x3, Medications Administered Discontinued Medications Generic Name Dose Route Start Last Admin Trade Name Freq PRN Reason Stop Dose Admin Furosemide 20 mg 06/17/25 10:46 06/17/25 11:13 Furosemide 20 Mg Tablet PO 06/17/25 10:47 20 mg ONCE ONE Administration Protocol Medical Decision Making Medical Decision Making [facility] Narrative: Patient is presenting with cough, chills, some precordial discomfort, we will workup for infectious etiology, ACS other considerations as below, he has history of AFib and takes Eliquis making PE much less likely he is in well control rate, otherwise benign abdominal exam and has had no urinary symptoms, if workup is negative anticipating discharge 10:45 AM 06/17/2025 (Dr. Maximino Rowley): We will make sure patient has no hypoxia during ambulation, chest x-ray is suggestive of some pulmonary edema, that can explain his cough, has had no ECG changes to suspect pericarditis and troponin not elevated to suspect myocarditis, anticipate discharging on oral diuretics 12:56 PM 06/17/2025 (Dr. Maximino Rowley): Ambulated well, no tachycardia hypoxia Differential Diagnosis Differential Diagnoses: The differential diagnosis associated with the presentation includes (CHF, COPD,, pneumonia, pneumothorax, ACS, PE, ENT infections) Admission/Observation Consideration of admission/observation: Escalation of care including admission/observation considered Lab Data [facility] Lab Attestation statement: I reviewed the patient's lab results. 06/17/25 07:54 06/17/25 07:54 Labs: Lab Results 06/17/25 Range/Units 07:54 WBC 7.8 (4.8-10.8) X10*3/uL RBC 5.57 (4.60-5.80) X10*6/uL Hgb 14.2 (14.0-18.0) g/dl Hct 42.7 (42.0-52.0) % MCV 76.7 L (80.0-98.0) fL MCH 25.5 L (27.0-33.0) pg MCHC 33.3 (31.0-36.0) g/dl RDW 18.3 H (11.0-16.0) % Plt Count 170 (160-400) X10*3/uL MPV 11.2 (9.4-12.4) fL Immature Gran % (Auto) 0.1 (0.0-0.4) % Neut % (Auto) 47.0 (45-73) % Lymph % (Auto) 35.6 (20-40) % Evangeline % (Auto) 11.6 H (2-11) % Eos % (Auto) 5.3 H (0-4) % Baso % (Auto) 0.4 (0-2) % Lymph # (Auto) 2.8 (1.2-4.9) X10*3/uL Evangeline # (Auto) 0.9 (0.1-1.2) X10*3/uL Eos # (Auto) 0.4 (0.0-0.4) X10*3/uL Baso # (Auto) 0.0 (0.0-0.2) X10*3/uL Abs Immat Gran (auto) 0.01 (0.00-0.03) X10*3/uL Absolute Neuts (auto) 3.7 (2.0-8.3) x10*3/uL Absolute Nucleated RBC 0.000 (0.0-0.012) X10*3/uL Nucleated RBC % (auto) 0.0 (0.0-0.2) /100WBC Sodium 140 (135-145) mmol/L Potassium 3.7 (3.3-5.1) mmol/L Chloride 104 (96-108) mmol/L Carbon Dioxide 25 (22-29) mmol/L Anion Gap 15 (12-20) BUN 17 H (9-16) mg/dL Creatinine 0.87 (0.5-1.4) mg/dL Estim Creat Clear Calc 85.8 Estimated GFR > 60 Random Glucose 142 H (60-115) mg/dL Calcium 9.8 (8.4-10.2) mg/dL Total Bilirubin 1.1 H (0.0-1.0) mg/dL AST 26 (5-37) U/L ALT 29 (0-40) U/L Alkaline Phosphatase 234 H (39-117) U/L Troponin I High Sens 3.8 (<3.5-35.0) ng/L NT-Pro-B Natriuret Pep 1129.4 H (<300) pg/mL Total Protein 9.3 H (6.5-8.0) g/dL Albumin 4.2 (3.5-5.0) g/dL COVID-19 (ANABELLE) Negative (Negative) COVID-19 Clin Com See Note Influenza Type A (CHAVEZ) Negative (Negative) Influenza Type B (CHAVEZ) Negative (Negative) Influenza A & B Note See Note Independent Interpretation I performed an independent interpretation of an: EKG (54 beats per minute slow AFib, low voltage QRS,) and Plain X-Ray (Increased vascular markings, cardiomegaly no obvious consolidations) Radiology Impression Discussion of test interpretation with radiology: I have reviewed the radiologist's reading. Prescription Management I considered prescription management with: Antibiotic Discharge Plan Discharge Clinical Impression: Cough, Pulmonary edema Patient Disposition: Home, Self-Care Instructions: Pulmonary Edema (ED) Additional Instructions: As far as patient's cough, based on chest x-ray and his heart failure marker, he may have these symptoms due to some fluid buildup in his lungs, his lungs sounded fairly clear to me on exam and when he walked his heart rate stays stable in his oxygen did not decrease so I think we can manage this on outpatient basis with the diuretics and then fallen up with his primary care provider, I would like to start him on furosemide 20 mg twice a day, 1st dose given in the ER, 1 more dose take by mid day, continue twice a day once in the morning once closer to mid day not to close before bedtime so he does not urinate throughout the night, and continue to monitor him, if he has worsening shortness of breath come back to the ER otherwise please call and make sure he is able to see his PCP. His blood pressure has been elevated, make sure to take all his regular medications for blood pressure and blood thinners as well. I sent information to your PCP I would like the patient to be re-evaluated with a one-week. Prescriptions: New furosemide [Lasix] 20 mg tablet 20 mg PO BID 7 Days Qty: 14 0RF No Action metoprolol succinate 50 mg tablet extended release 24 hr 25 mg PO DAILY Qty: 90 3RF Rx Instructions: Dose reduced to 25mg daily Eliquis 5 mg tablet 5 mg PO BID Qty: 60 2RF atorvastatin 40 mg tablet 40 mg PO BEDTIME Qty: 30 2RF hydrochlorothiazide 25 mg tablet 25 mg PO DAILY Qty: 30 2RF ferrous sulfate 325 mg (65 mg iron) tablet 325 mg PO BID Qty: 60 2RF folic acid 1 mg tablet 1 mg PO DAILY Qty: 30 2RF cholecalciferol (vitamin D3) 50 mcg (2,000 unit) capsule 50 mcg PO DAILY omeprazole 20 mg capsule,delayed release(DR/EC) 20 mg PO DAILY Jardiance 10 mg tablet 10 mg PO DAILY simethicone [Gas Relief (simethicone)] 125 mg capsule 125 mg PO BID-QID PRN ascorbic acid (vitamin C) 250 mg tablet 250 mg PO DAILY docusate sodium 100 mg capsule 100 mg PO BEDTIME Qty: 90 1RF Rx Instructions: Take one tablet at bedtime bisacodyl [Dulcolax (bisacodyl)] 5 mg tablet,delayed release (DR/EC) 20 mg PO ONCE 1 Days Qty: 4 0RF Rx Instructions: Take four tablets pre colonoscopy instructions polyethylene glycol 3350 [Miralax] 17 gram/dose powder 238 g PO ONCE Qty: 238 0RF Rx Instructions: per colonoscopy prep instructions metformin 500 mg tablet 500 mg PO DAILY cetirizine 10 mg tablet 10 mg PO DAILY PRN Referrals: Francisco Jeronimo MD [Primary Care Provider, Medical] - 1 week Referral Note: I would like the patient to be re-evaluated in the clinic, to make sure his pulmonary edema is not getting worse I started him on diuretics in the ER Clinical Impression: Cough; Pulmonary edema Print Language: Hong Konger
[2025-06-17 08:26] LABS: Troponin-I High Sensitivity 3.8 ng/L (<3.5-35.0)
--- OUTSIDE RECORDS SUMMARY | 2025-06-17 09:35 | XMS_ITS | Encounter Summary ---
Author Organization [employer] Address [address] [place] [address] Care Team Providers Care Medical Claims Processor Name Role Phone Francisco Khoury MD Primary Care Provide r Reason for Visit * Reason Comments Med Refill Encounter Details Date Type Department Care Team (Late st Contact Info) Description 06/13/2025 Refill [facility] [address] [place], [place] [phone] Roula Alejandre DO [address] [place], [place] [phone] Social History Tobacco Use Types Packs/Day Years Used Date Smoking Tobacco: Never Depression Answer Date Recorded Patient Health Questionnaire-9 [...] Description 07/04/2025 10:15 AM EDT Office Visit [facility] [address] [place] [address] Francisco Khoury MD [address] [place] [id number] documented as of this encounter Visit Diagnoses Not on filedocumented in this encounter Additional Health Concerns Assessment Noted Time PHQ-9 Depression Total Score: 0 03/07/20 10:25 AM EDT documented as of this encounter Care Teams Medical Claims Processor Relationship Specialty Start Date End Date Francisco Khoury MD [address] [place] [id number] PCP - General Internal Medicine 03/07/25 documented as of this encounter
--- OUTSIDE RECORDS SUMMARY | 2025-06-17 09:35 | XMS_ITS | Clinical Summary ---
Author Organization [employer] Address [address] [facility] [address] [place] [address] Care Team Providers Care Wrong Address Clerk Name Role Phone Francisco Khoury MD Primary Care Provide r Allergies No known active allergies Medications FREESTYLE LITE test strip Use to test blood sugar 2 times daily 100 each 02/01/20 25 026 Active Lancets misc Use to test blood sugar 2 times daily 100 each 02/01/20 25 Active Alcohol Swabs 70 % pads Use to test blood sugar 2 times daily 100 each 02/01/20 25 Active Blood Pressure kit 1 each 1 (one) time per week. 1 kit 02/01/20 25 Active ferrous sulfate (Fe Tabs) 325 (65 Fe) MG EC tablet Take 1 tablet (325 mg) by mouth with breakfast. Do not crush, chew, or split. 30 tablet 3 02/01/20 25 026 Active folic acid (Folvite) 1 MG tablet Take 1 tablet (1 mg) by mouth Once per day. 30 tablet 3 02/01/20 25 026 Active metoprolol succinate XL (Toprol XL) 50 MG 24 hr tablet Take 1 tablet (50 mg) by mouth Once per day. Do not crush or chew. 30 tablet 3 02/01/20 25 026 Active cholecalcifero l (Vitamin D-3) 50 MCG (2000 UT) capsule Take 1 capsule (50 mcg) by mouth Once per day. 90 capsule 3 02/02/20 25 026 Active fluticasone (Flonase) 50 MCG/ACT nasal spray Administer 2 sprays into each nostril Once per day. Shake gently. Before first use, prime pump. After use, clean tip and replace cap. 16 g 02/22/20 Active cetirizine (ZyrTEC) 10 MG tablet Take 1 tablet (10 mg) by mouth Once per day. 90 tablet 3 02/22/20 Active Gas Relief Extra Strength 125 [...] MOUTH DAILY 30 tablet 05/23/20 25 Active hydroCHLOROthi azide (HYDRODiuril) 25 MG tablet TAKE 1 TABLET BY MOUTH DAILY 90 tablet 06/13/20 25 Active empagliflozin (Jardiance) 10 MG Take 1 tablet (10 mg) by mouth Once per day. 30 tablet 3 02/01/20 25 025 Discontinued hydroCHLOROthi azide (HYDRODiuril) 25 MG tablet Take 1 tablet (25 mg) by mouth Once per day. 30 tablet 3 02/01/20 25 025 Discontinued apixaban (Eliquis) 5 MG tablet Take 1 tablet (5 mg) by mouth 2 times daily. 60 tablet 3 05/01 025 Discontinued Active Problems Problem Noted Date [...] On beta blockers and anticoagulation. Seen at [facility] 02/19/2025 and they recommended to continue [...] a New Patient visit, recently moved from [place] 10/2024 as he was alone in [place] and needed assistance. Has a Hx of Afib. On beta blockers and anticoagulation. Recently seen at [facility] 02/19/2025 and they recommended to continue [...] measuring 4.20 cm. Under the care of [facility], patient has a follow up visit [...] measuring 4.20 cm. Under the care of [facility], patient has a follow up visit [...] 10:31 AM EDT): Under the care of [facility], since last 02/05/2025 they [...] or Colonoscopy pending GI 05/23/25 at 2:30pm [facility]. Assessment & Plan (03/07/2025 10:39 AM EDT): Lab Results Component Value Date WBC 8.7 01/31/2025 HGB 11.1 (L) 01/31/2025 HCT 32.8 (L) 01/31/2025 MCV 85.0 01/31/2025 PLT 191 01/31/2025 Normal Iron studies and B12, Folate US Abdomen appointment 03/21/25 at 11 AM ([facility]) No records of EGD or Colonoscopy Plan: [...] Encounters Date Type Department Care Team Description 06/13/2025 Refill [facility] [address] [place] [address] [phone] Roula Alejandre DO 05/23/2025 Refill [facility] [address] [place] [address] [phone] Roula Alejandre DO 04/24/2025 Refill [facility] [address] [place] [address] [phone] Roula Alejandre DO 04/04/2025 11:00 AM EDT Office Visit [facility] [address] [place] [address] [phone] Francisco Khoury MD Type 2 diabetes mellitus without complication, without long-term current use of insulin (CMS/[facility]) (Primary Dx); Essential hypertension; Chronic systolic congestive heart failure (CMS/HCC); Atrial fibrillation, chronic (CMS/HCC); Anemia, unspecified type; Calculus of gallbladder without cholecystitis without obstruction; Obesity (BMI 30-39.9); Dietary counseling; Exercise counseling 04/04/2025 Orders Only GENERIC EXTERNAL DATA DEPARTMENT Provider, Generic External Data 04/04/2025 Travel 04/03/2025 Telephone [facility] [address] [place] [address] [phone] Francisco Khoury MD CHART PREP 03/30/2025 Refill [facility] [address] [place] [address] [phone] Francisco Khoury MD Tinea pedis of both feet from Last 3 Months Family History Medical [...] Description 07/04/2025 10:15 AM EDT Office Visit [facility] [address] [place] [phone] Francisco Khoury MD [address] [place] [address] Health Maintenance Due Date Last Done Comments [...] COVID-19 Vaccine (1 - 2023-2 5 season) 2025 Influenza Vaccine (#1) 2025 Diabetes: Hemoglobin A1C [...] Procedure Name Priority Date/Time Associated Diagnosis Comments HIGH SENSITIVITY TROPONIN I Routine 06/17/2025 7:54 AM EDT COVID-19 ID NOW (Pili Pop) Routine 06/17/2025 7:54 AM EDT COMPREHENSIVE METABOLIC PANEL Routine 06/17/2025 7:54 AM EDT CBC WITH AUTO DIFFERENTIAL Routine 06/17/2025 7:54 AM EDT INFLUENZA A B2 ID NOW (Pili Pop) Routine 06/17/2025 7:54 AM EDT BASIC METABOLIC PANEL Routine 04/04/2025 2:51 PM EDT CBC Routine 04/04/2025 2:51 PM EDT PROTHROMBIN TIME-INR Routine 04/04/2025 2:51 PM EDT POCT GLUCOSE Routine 04/04/2025 11:08 AM EDT Type 2 diabetes mellitus without complication, without long-term current use of insulin ([facility]) US ABDOMEN COMPLETE Routine 03/21/2025 3 :17 PM EDT Abdominal bloating POCT GLYCATED HEMOGLOBIN, TOTAL Routine 03/07/2025 10:37 [...] Recently Relevant to Health Maintenance Results * Influenza A B2 ID NOW ([employer]) (06/17/2025 7:54 AM EDT) IDLARRYW SERIAL# [id number] [facility] Influenza A Negative Negative [facility] Influenza B2 Negative Negative [facility] Influenza A B2 Note See Note [facility] Comment:The Rob ID NOW In fluenza A B2 test is used for thequalitative detection of influenza A and B from patientswith signs and symptoms of respiratory infection.Negative results do not preclude influenza virus infectionand should not be used as the sole basis for diagnosis,treatment or other patient management decisions.There is a risk of false negative results due to thepresence of variants in the viral targets of the assay, lowlevels of virus in the specimen and co- infection withRespiratory Syncytial Virus. 06/17/2025 7:54 AM EDT 06/17/2025 7:58 AM EDT us Generic External Data Provider LAB MICROBIOLOGY - GENERAL ORDERABLES Final Result [facility] [address] [place] [phone] * COVID-19 ID NOW (ROB) (06/17/2025 7:54 AM EDT) Pathologist [facility] IDNOW SERIAL# [id number] [facility] COVID-19 TEST Negative Negative [facility] COVID-19 NOTE See Note [facility] Comment: Results are for the identification of SARS-CoV2 RNA. TheSARS-CoV2 RNA is generally detectable in respiratory samplesduring the acute phase of infection. Positive results areindicative of the presence of SARS-CoV-2 RNA; clinicalcorrelation with patient history and other diagnosticinformation is necessary to determine patient infectionstatus. Positive results do not rule out bacterial infectionor co- infection with other viruses.Testing facilities within the [facility] and itsterritories are required to report all positive results tothe appropriate public health authorities.Negative results should be treated as presumptive and, ifinconsistent with clinical signs and symptoms or necessaryfor patient management, should be tested with differentauthorized or cleared molecular tests. Negative results donot preclude SARS-CoV2 RNA infection and should not be usedas the sole basis for patient management decisions. Negativeresults should be considered in the context of a patient'srecent exposures, history and the presence of clinical signsand symptoms consistent with COVID-19.This test has been authorized by the FDA under an EmergencyUse Authorization (EUA) for use by authorized laboratories.Testing performed on the [employer] ID NOW utilizing NAAT. 06/17/2025 7:54 AM EDT 06/17/2025 7:58 AM EDT us Generic External Data Provider LAB MOLECULAR HORACE GNOSTICS ORDERABLES Final Result [facility] [address] [place] [address] [phone] * High Sensitivity Troponin I (06/17/2025 7:54 AM EDT) [facility] TROPONIN I HIGH SENSITIVITY 3.8 <3.5 - 35.0 ng/L [facility] Comment:The Rob high sens itivity Troponin-I results should beused in conjunction with other diagnostic information suchas ECG, clinical observations and information, and patientsymptoms to aid in the diagnosis of PA. 06/17/2025 7:54 AM EDT 06/17/2025 7:58 AM EDT us Generic External Data Provider LAB BLOOD ORDERAB LES Final Result [facility] [address] [place] [phone] * (ABNORMAL) CBC auto differential (06/17/2025 7:54 AM EDT) White Blood Count 7.8 4.8 - 10.8 X10*3/uL [facility] Red Blood Count 5.57 4.60 - 5.80 X10*6/uL [facility] Hemoglobin 14.2 14.0 - 18.0 g/dl [facility] Hematocrit 42.7 42.0 - 52.0 % [facility] Mean Corpuscular Volume 76.7(L) 80.0 - 98.0 fL [facility] Mean Corpuscular Hemoglobin 25.5(L) 27.0 - 33.0 pg [facility] Mean Corpuscular HGB Conc 33.3 31.0 - 36.0 g/dl [facility] Red Cell Distribution Width 18.3(H) 11.0 - 16.0 % [facility] Platelet Count 170 160 - 400 X10*3/uL [facility] Mean Platelet Volume 11.2 9.4 - 12.4 fL [facility] Neutrophils Percent Auto 47.0 45 - 73 % [facility] Imm Gran Pct Auto 0.1 0.0 - 0.4 % [facility] Lymphocytes Percent Auto 35.6 20 - 40 % [facility] Monocytes Percent Auto 11.6(H) 2 - 11 % [facility] Eosinophils Percent Auto 5.3(H) 0 - 4 % [facility] Basophils Percent Auto 0.4 0 - 2 % [facility] NRBC Pct Auto 0.0 0.0 - 0.2 /100WBC [facility] Neutrophils Absolute Auto 3.7 2.0 - 8.3 x10*3/uL [facility] Imm Gran Abs Auto 0.01 0.00 - 0.03 X10*3/uL [facility] Lymphocytes Absolute Auto 2.8 1.2 - 4.9 X10*3/uL [facility] Monocytes Absolute Auto 0.9 0.1 - 1.2 X10*3/uL [facility] Eosinophils Absolute Auto 0.4 0.0 - 0.4 X10*3/uL [facility] Basophils Absolute Auto 0.0 0.0 - 0.2 X10*3/uL [facility] NRBC Abs Auto 0.000 0.0 - 0.012 X10*3/uL [facility] 06/17/2025 7:54 AM EDT 06/17/2025 7:58 AM EDT us Generic External Data Provider LAB BLOOD ORDERAB LES Final Result [facility] [address] [place] [phone] * (ABNORMAL) Comprehensive Metabolic Panel (06/17/2025 7:54 AM EDT) Sodium 140 135 - 145 mmol/L [facility] Potassium 3.7 3.3 - 5.1 mmol/L [facility] Chloride 104 96 - 108 mmol/L [facility] Carbon Dioxide 25 22 - 29 mmol/L [facility] Anion Gap 15 12 - 20 [facility] Urea Nitrogen (BUN) 17(H) 9 - 16 mg/dL [facility] Creatinine, Serum 0.87 0.5 - 1.4 mg/dL [facility] Creatinine Clr Calc Pharmacy 85.8 [facility] Comment:eGFR (calculated fro m the MDRD study equation) and eCrCl(calculated from the Cockcroft-Gault equation) are based ondifferent parameters and may not yield comparable results.If eCrCl result is absurd, please check patient'sheight/weight. Estimated Glomerular Filt Rate >60 [facility] Comment:Chronic Kidney Disea se: Estimated GFR < 60 mL/min/1.52g8Mebhmy Kidney Disease: Estimated GFR < 15 mL/min/1.73m2 Glucose 142(H) 60 - 115 mg/dL [facility] Calcium 9.8 8.4 - 10.2 mg/dL [facility] Bilirubin, Total 1.1(H) 0.0 - 1.0 mg/dL [facility] Aspartate Amino Transferase 26 5 - 37 U/L [facility] Alanine Aminotransferase 29 0 - 40 U/L [facility] Total Protein 9.3(H) 6.5 - 8.0 g/dL [facility] Albumin Level 4.2 3.5 - 5.0 g/dL [facility] Alkaline Phosphatase 234(H) 39 - 117 U/L [facility] 06/17/2025 7:54 AM EDT 06/17/2025 7:58 AM EDT us Generic External Data Provider LAB BLOOD ORDERAB LES Final Result [facility] [address] [place] [address] [phone] * (ABNORMAL) Prothrombin Time-INR (04/04/2025 2:51 PM EDT) Prothrombin Time 15.2(H) 10.9 - 12.4 SEC [facility] INTERNATIONAL NORM RATIO 1.3(H) 0.9 - 1.1 [facility] Comment:INTERNATIONAL NORMAL IZED RATIO (INR) [...] ORDERAB LES Final Result Performing Organization Address [facility]/ZIP Co de Phone Number [facility] [address] [place] [address] [phone] * (ABNORMAL) CBC (04/04/2025 2:51 PM EDT) White Blood Count 7.0 4.8 - 10.8 X10*3/uL [facility] Red Blood Count 5.21 4.60 - 5.80 X10*6/uL [facility] Hemoglobin 13.9(L) 14.0 - 18.0 g/dl [facility] Hematocrit 42.0 42.0 - 52.0 % [facility] Mean Corpuscular Volume 80.6 80.0 - 98.0 fL [facility] Mean Corpuscular Hemoglobin 26.7(L) 27.0 - 33.0 pg [facility] Mean Corpuscular HGB Conc 33.1 31.0 - 36.0 g/dl [facility] Red Cell Distribution Width 14.7 11.0 - 16.0 % [facility] Platelet Count 184 160 - 400 X10*3/uL [facility] Mean Platelet Volume 12.6(H) 9.4 - 12.4 fL [facility] NRBC Pct Auto 0.0 0.0 - 0.2 /100WBC [facility] NRBC Abs Auto 0.000 0.0 - 0.012 X10*3/uL [facility] 04/04/2025 2:51 PM EDT 04/04/2025 2:51 PM EDT us Generic External Data Provider LAB BLOOD ORDERAB LES Final Result Performing Organization Address [facility]/ZIP Co de Phone Number [facility] [address] [place] [address] [phone] * (ABNORMAL) Basic Metabolic Panel (04/04/2025 2:51 PM EDT) Sodium 139 135 - 145 mmol/L [facility] Potassium 4.0 3.3 - 5.1 mmol/L [facility] Chloride 102 96 - 108 mmol/L [facility] Carbon Dioxide 27 22 - 29 mmol/L [facility] Anion Gap 14 12 - 20 [facility] Urea Nitrogen (BUN) 23(H) 9 - 16 mg/dL [facility] Creatinine, Serum 1.06 0.5 - 1.4 mg/dL [facility] Estimated Glomerular Filt Rate >60 [facility] Comment:Chronic Kidney Disea se: Estimated GFR < 60 mL/min/1.21f7Hbmqxd Kidney Disease: Estimated GFR < 15 mL/min/1.73m2 Glucose 196(H) 60 - 115 mg/dL [facility] Calcium 9.8 8.4 - 10.2 mg/dL [facility] 04/04/2025 2:51 PM EDT 04/04/2025 2:51 PM EDT us Generic External Data Provider LAB BLOOD ORDERAB LES Final Result [facility] [address] [place] [address] [phone] * (ABNORMAL) POCT Glucose (04/04/2025 11:08 AM EDT) Glucose Blood, POC 233(A) 60 - 200 mg/dL QC Media Lot # [id number] Lot# Expiration Date 448 Blood Capillary blood specimen / Unknown 04/04/2025 11:08 AM EDT us Francisco Choi MD POINT OF CARE TEST EN TER/EDIT ORDERABLES Final Result * US Abdomen Complete (03/21/2025 3:17 PM EDT) Anatomical Region Laterality Modality Abdomen Ultrasound 03/21/2025 3:17 PM EDT Narrative 03/21/2025 3:18 PM EDT [place] [id number] Ultrasound Report Signed Patient: Peter Armendariz MR#: [id number] [birth year] Acct:[id number] Age/Sex: 64 / M ADM Date: 03/21/25 Loc: HO.US Attending Dr: Roula Alejandre DO Ordering Physician: Roula Alejandre DO Date of Service: 03/21/25 Procedure(s): US abdomen complete Accession Number(s): [id number] cc: Francisco Jeronimo MD; Roula Alejandre DO CLINICAL HISTORY: intermittent abdominal bloating US abdomen complete. COMPARISON: None provided. Technique: Real time sonographic imaging, including color-flow imaging, was performed by the screw machine operator swiss type. Multiple veterans employment representative static images were saved for review. [...] Gaytan MD in OV> 03/21/25 1518 DD/ 16 TD/TT: 03/21/251516 Hammer Driver: Procedure Note Donotuseinterpreter, Image - 03/21/2025 [place] [id number] Ultrasound Report Signed Patient: Peter Armendariz [facility]#: [id number] 194 : 9Acct:[id number] Age/Sex: 64 / MADM Date: 03/21/25 Loc: HO.US Attending Dr: Roula Alejandre DO Ordering Physician: Roula Alejandre DO Date of Service: 03/21/25 Procedure(s): US abdomen complete Accession Number(s): [id number] cc: Francisco Jeronimo MD; Roula Alejandre DO CLINICAL HISTORY: intermittent abdominal bloating US abdomen complete. COMPARISON: None provided. Technique: Real time sonographic imaging, including color-flow imaging, was performed by the screw machine operator swiss type. Multiple veterans employment representative static images were saved for review. [...] OV> 03/21/25 1518 DD/ 1517 TD/TT: 03/21/25 151 Hammer Driver: Roula Alejandre DO IMG US PROCEDURES Final Resu lt * (ABNORMAL) POCT HGB A1C (03/07/2025 10:37 AM EDT) Hemoglobin A1C 7.9(A) 4.0 - 6.0 % QC Media Lot # [id number] Lot# Expiration Date Blood 03/07/2025 10:3 7 AM EDT Francisco Choi MD POINT OF CARE TEST EN TER/EDIT ORDERABLES Final Result * Albumin, Random Urine W/Creatinine (01/31/2025 2:22 PM EDT) Creatinine, Urine 58.38 mg/dL [facility] Microalbumin Urine <5.0 mg/L [facility] Microalbum Creatinine Ratio Ur TNP <30 ug/mg cr [facility] Comment:Unable to calculate albumin/creatinine ratio due to lowmicroalbumin or creatinine result. Urine (Urine, Random) 01/31/2025 2:22 PM EDT 01/31/2025 4:03 PM EDT Roula Alejandre DO LAB URINE ORDERABLES Final R esult [facility] [address] [place] [phone] * Hepatitis C Antibody with Reflex to HCV, RNA, Quantitative, Real-Time PCR (01/31/2025 2:22 PM EDT) Hepatitis C Antibody Nonreactive Nonreactive [facility] Comment:Antibodies to HCV no t detected; does not exclude early acuteHCV infection. Blood Venous blood specimen / Unknown 01/31/2025 2:22 PM EDT 01/31/2025 4:01 PM EDT Roula Alejandre LAB BLOOD ORDERABLES Final R esult Performing Organization Address [facility] Co de Phone Number [facility] [address] [place] [phone] * (ABNORMAL) Lipid Panel, Standard (01/31/2025 2:22 PM EDT) Triglycerides 167(H) <150 mg/dL [facility] Comment:Desirable Triglyceri de: less than 150 mg/dLBorderline High Triglyceride 150-199 mg/dLHigh Triglyceride: 200-499 mg/dLVery High Triglyceride: greater than or equal to 5OO mg/dL Cholesterol 154 <200 mg/dL [facility] Comment:Desirable Cholestero l: less than 200 mg/dLBorderline High Cholesterol: 200-239 mg/dLHigh Cholesterol: greater than 239 mg/dL LDL Cholesterol Calculated 81 <100 mg/dL [facility] Comment:Desirable LDL: less than 100 mg/dLNear Optimal/Above Optimal LDL: 110- 129 mg/dLBorderline High LDL: 130-159 mg/dLHigh LDL: 160-189 mg/dLVery High LDL: greater than or equal to 190 mg/dL HDL Cholesterol 40(L) >40 mg/dL [facility] Comment:Desirable HDL: great er than 40 mg/dL Note: This HDL assay may give artificially low results in patients with liver disease. Blood Venous blood specimen / Unknown 01/31/2025 2:22 PM EDT 01/31/2025 4:01 PM EDT Roula Alejandre DO LAB BLOOD ORDERABLES Final R esult Performing Organization Address City/[facility] Co de Phone Number [facility] [address] [place] [address] [phone] from Last 3 Months or Most Recently Relevant to Health Maintenance Insurance [facility] Care Teams Wrong Address Clerk Relationship Specialty Start Date End Date Francisco Khoury MD [address] [place] [phone] PCP - General Internal Medicine 03/07/25
[2025-06-17 11:09] VITALS: BP 155/73; PULSE 66; RESP 15; O2SAT 96; O2SAT 98
[2025-06-17 11:13] VITALS: BP 155/73
[2025-06-17 11:25] LABS: NT Pro B Type Natriuretic Pept 1129.4 pg/mL (<300)
[2025-06-17 13:17] VITALS: BP 155/73; PULSE 76; RESP 20; TEMP 37; O2SAT 93
== END 2025-06-17 13:20 | disposition home or self-care (01) ==
PROVIDERS: Emergency Provider Emergency Medicine; PCP Internal Medicine
DX: R07.89 Other chest pain (principal); J81.1 Chronic pulmonary edema; R05.9 Cough, unspecified; R06.02 Shortness of breath; Z79.899 Other long term (current) drug therapy; Z11.52 Encounter for screening for COVID-19; Z03.818 Encounter for observation for suspected exposure to other biological agents ruled out
CPT/HCPCS: 71046; 80053; 83880; 84484; 85025; 87502; 87635; 93005; 99283; 99285

== ENCOUNTER → 2025-06-17 07:47 | Outpatient (BNV) | payer MEDICAID, SELFPAY | PROVIDERS: Emergency Provider Emergency Medicine; PCP Internal Medicine; Visit Provider Internal Medicine | DX: I48.91 Unspecified atrial fibrillation (principal) | CPT/HCPCS: 93010 ==

== ENCOUNTER → 2025-06-17 09:02 | Outpatient (BNV) | payer MEDICAID, SELFPAY | PROVIDERS: Emergency Provider Emergency Medicine; PCP Internal Medicine; Visit Provider Radiology Diagnostic Radiology | DX: R05.9 Cough, unspecified (principal) | CPT/HCPCS: 71046 ==